=== PATIENT | female | born 1965 | race Caucasian/White ===

== ENCOUNTER 2021-09-12 17:29 | Inpatient (IN) | payer MEDICARE, OTHER ==
[2021-09-12] MEDS ORDERED: LORazepam 2 MG/ML INJ IV STA ×2 (17:42→22:32)
--- NOTE | 2021-09-12 17:42 | ED ---
General Adult HPI - General Chief complaint: Altered Mental Status Stated complaint: altered Time Seen by Provider: 09/12/21 17:34 Source: family, EMS Mode of arrival: EMS Limitations: no limitations - History of Present Illness Initial comments: Brittnee is a 55yo F his breath the hospital today by ambulance for evaluation of altered mental status. Patient is able to provide no history and limited history is provided by her . reports the patient has a history of MS and is on a blood thinner though he cannot tell me why. He states the patient's been somewhat off all week having trouble sleeping, he states that her doctor did call her in some medication to help her sleep which she has been taking for couple nights this week. reports that the patient did take sleeping medication last night and when he got up to leave the house around 8 AM she was still drowsy. When he returned in the afternoon the patient was altered . She was mumbling and moving her extremities but not saying anything meaningful. At that time EMS was called. - Related Data Home Medications Medication Instructions Recorded Confirmed Cyclobenzaprine [Flexeril] 10 mg PO HS PRN 09/12/21 09/12/21 DULoxetine HCL [Cymbalta] 60 mg PO BID 09/12/21 09/12/21 Dextroamphetamine/Amphetamine 10 mg PO DIRECTED 09/12/21 09/12/21 [Adderall] Dextroamphetamine/Amphetamine 30 mg PO DIRECTED 09/12/21 09/12/21 [Adderall] Enalapril [Vasotec] 20 mg PO DAILY 09/12/21 09/12/21 Estrogens, Conjugated Cream 1 applicator VAGINAL DIRECTED 09/12/21 09/12/21 [Premarin Vaginal Cream] PRN Glatopa 40mg/Ml 1 dose SQ DIRECTED 09/12/21 09/12/21 LORazepam [Ativan] 0.5 mg PO TID 09/12/21 09/12/21 Meloxicam 15 mg PO DAILY PRN 09/12/21 09/12/21 Nitrofurantoin Monohyd/M-Cryst 100 mg PO DAILY PRN 09/12/21 09/12/21 [Macrobid] Simvastatin [Zocor] 20 mg PO HS 09/12/21 09/12/21 Zolpidem [Ambien] 10 mg PO HS 09/12/21 09/12/21 hydroCHLOROthiazide [Hydrodiuril] 25 mg PO DAILY 09/12/21 09/12/21 metFORMIN HCL 500 mg PO AC-BID 09/12/21 09/12/21 rOPINIRole HCL [Requip] 1 mg PO HS 09/12/21 09/12/21 Allergies Allergy/AdvReac Type Severity Reaction Status Date / Time No Known Allergies Allergy Verified 09/12/21 18:08 Review of Systems ROS Statement: Those systems with pertinent positive or pertinent negative responses have been documented in the HPI. ROS Other: All systems not noted in ROS Statement are negative. Past Medical History Additional Past Medical History / Comment(s): MS History of Any Multi-Drug Resistant Organisms: None Reported Past Surgical History: No Surgical Hx Reported Past Psychological History: No Psychological Hx Reported Smoking Status: Never smoker Past Alcohol Use History: None Reported Past Drug Use History: None Reported General Exam - General Exam Comments Initial Comments: Physical Exam GENERAL: Patient is well-developed and well-nourished. Patient is nontoxic and well- hydrated and is in no distress. HENT: Normocephalic, Atraumatic. EYES: PERRL EOMI PULMONARY: Unlabored respirations. No audible rales rhonchi or wheezing was noted. CARDIOVASCULAR: There is a regular rate and rhythm without any murmurs gallops or rubs. ABDOMEN: Soft and nontender with normal bowel sounds. SKIN: Skin is clear with no lesions or rashes and otherwise unremarkable. : Normal external genitalia NEUROLOGIC: Moving all extremities Eyes open to pain Mumbling random words Withdraws from pain, resists evaluation GCS 9 Muscular tics noted MUSCULOSKELETAL: Normal extremities with adequate strength and full range of motion. No lower extremity swelling or edema. No calf tenderness. PSYCHIATRIC: Unable to assess Limitations: no limitations Course Vital Signs 09/12/21 09/12/21 09/12/21 17:36 17:47 19:34 Temperature 98.4 F Pulse Rate 110 H 76 Respiratory 18 22 Rate Blood Pressure 144/126 110/78 O2 Sat by Pulse 94 L 98 Oximetry 09/12/21 09/12/21 09/12/21 19:36 19:40 19:43 Temperature Pulse Rate 78 89 70 Respiratory 20 14 12 Rate Blood Pressure 107/68 91/77 91/77 O2 Sat by Pulse 100 98 68 L Oximetry 0109/12/21 09/12/21 19:45 19:50 19:55 Temperature Pulse Rate 91 90 88 Respiratory 15 19 19 Rate Blood Pressure 90/56 86/48 80/46 O2 Sat by Pulse 97 99 100 Oximetry 09/12/21 09/12/21 09/12/21 20:00 20:05 20:10 Temperature Pulse Rate 81 90 88 Respiratory 19 19 19 Rate Blood Pressure 92/38 79/40 72/42 O2 Sat by Pulse 99 100 100 Oximetry 09/12/21 09/12/21 09/12/21 20:15 21:00 21:46 Temperature Pulse Rate 88 101 H 99 Respiratory 19 22 22 Rate Blood Pressure 75/40 109/55 145/72 O2 Sat by Pulse 100 97 99 Oximetry 09/12/21 22:35 Temperature Pulse Rate 96 Respiratory Rate Blood Pressure 111/52 O2 Sat by Pulse 96 Oximetry Procedures - Procedural Sedation Procedural Sedation Start Time: 19:20 Procedural Sedation Stop Time: 19:55 Indications: other ASA Class: II Mallampati Airway Score: 2 Preparation: medical charge entry specialist applied, pulse oximeter, capnometry used, supplemental O2 applied, suction/airway equipment at bedside IV Propofol Dose (mgs): 200 Complications: hypotension Interventions: oxygen applied, airway repositioned, assist by BVM Patient Tolerated Procedure: well Medical Decision Making - Medical Decision Making Patient was seen and evaluated immediately upon arrival emergency department, the patient is awake GCS is 9, she is very altered and resistant to examination Labs were obtained results with critical finding of acute kidney failure with elevated BUN of 99, creatinine 10.6, GFR is [address] without acute findings Nephrology was consult and they agree the patient requires emergent dialysis for uremic encephalopathy Dr. Duong vascular surgical team was consult it and will be into place dialysis access The patient's level of encephalopathy and inability to participate with the exam decision was made to provide procedural sedation with propofol for Dr. Duong to place the line Line was placed, patient did have some hypotension and hypoxia, she did require airway support during the procedure Patient care was discussed with Dr. Weems accepts the patient to the ICU Patient care was discussed with who accepts the medical admission - Lab Data Result diagrams: 09/12/21 18:04 09/12/21 18:04 Lab Results 01/27/22 01/27/22 01/27/22 Range/Units 18:04 18:04 18:04 WBC 12.3 H (3.8-10.6) k/uL RBC 4.16 (3.80-5.40) m/uL Hgb 12.4 (11.4-16.0) gm/dL Hct 37.7 (34.0-46.0) % MCV 90.7 (80.0-100.0) fL MCH 29.9 (25.0-35.0) pg MCHC 33.0 (31.0-37.0) g/dL RDW 14.2 (11.5-15.5) % Plt Count 434 (150-450) k/uL MPV 8.0 Neutrophils % Not Reportable Neutrophils % (Manual) 74 % Band Neuts % (Manual) 16 % Lymphocytes % Not Reportable Lymphocytes % (Manual) 4 % Monocytes % Not Reportable Monocytes % (Manual) 6 % Eosinophils % Not Reportable Basophils % Not Reportable Neutrophils # Not Reportable Neutrophils # (Manual) 11.00 H (1.3-7.7) k/uL Lymphocytes # Not Reportable Lymphocytes # (Manual) 0.49 L (1.0-4.8) k/uL Monocytes # Not Reportable Monocytes # (Manual) 0.74 (0-1.0) k/uL Eosinophils # Not Reportable Basophils # Not Reportable Nucleated RBCs 0 (0-0) /100 WBC Manual Slide Review Performed Polychromasia Present PT 9.9 (9.0-12.0) sec INR 0.9 (<1.2) APTT 23.7 (22.0-30.0) sec Sodium (137-145) mmol/L Potassium (3.5-5.1) mmol/L Chloride (98-107) mmol/L Carbon Dioxide (22-30) mmol/L Anion Gap mmol/L BUN (7-17) mg/dL Creatinine (0.52-1.04) mg/dL Est GFR (CKD-EPI)AfAm (>60 ml/min/1.73 sqM) Est GFR (CKD-EPI)NonAf (>60 ml/min/1.73 sqM) Glucose (74-99) mg/dL Plasma Lactic Acid Nasir (0.7-2.0) mmol/L Calcium (8.4-10.2) mg/dL Magnesium (1.6-2.3) mg/dL Total Bilirubin (0.2-1.3) mg/dL AST (14-36) U/L ALT (4-34) U/L Alkaline Phosphatase (38-126) U/L Total Protein (6.3-8.2) g/dL Albumin (3.5-5.0) g/dL Urine Color Yellow Urine Appearance Turbid H (Clear) Urine pH 5.0 (5.0-8.0) Ur Specific [place] 1.025 (1.001-1.035) Urine Protein 2+ H (Negative) Urine Glucose (UA) Trace H (Negative) Urine Ketones Negative (Negative) Urine Blood Small H (Negative) Urine Nitrite Negative (Negative) Urine Bilirubin Negative (Negative) Urine Urobilinogen <2.0 (<2.0) mg/dL Ur Leukocyte Esterase Small H (Negative) Urine RBC 1 (0-5) /hpf Urine WBC 6 H (0-5) /hpf Ur Squamous Epith Cells 29 H (0-4) /hpf Urine Bacteria Moderate H (None) /hpf Urine Mucus Rare H (None) /hpf 09/12/21 09/12/21 Range/Units 18:04 18:04 WBC (3.8-10.6) k/uL RBC (3.80-5.40) m/uL Hgb (11.4-16.0) gm/dL Hct (34.0-46.0) % MCV (80.0-100.0) fL MCH (25.0-35.0) pg MCHC (31.0-37.0) g/dL RDW (11.5-15.5) % Plt Count (150-450) k/uL MPV Neutrophils % Neutrophils % (Manual) % Band Neuts % (Manual) % Lymphocytes % Lymphocytes % (Manual) % Monocytes % Monocytes % (Manual) % Eosinophils % Basophils % Neutrophils # Neutrophils # (Manual) (1.3-7.7) k/uL Lymphocytes # Lymphocytes # (Manual) (1.0-4.8) k/uL Monocytes # Monocytes # (Manual) (0-1.0) k/uL Eosinophils # Basophils # Nucleated RBCs (0-0) /100 WBC Manual Slide Review Polychromasia PT (9.0-12.0) sec INR (<1.2) APTT (22.0-30.0) sec Sodium 135 L (137-145) mmol/L Potassium 4.6 (3.5-5.1) mmol/L Chloride 95 L (98-107) mmol/L Carbon Dioxide 9 L* (22-30) mmol/L Anion Gap 31 mmol/L BUN 99 H (7-17) mg/dL Creatinine 10.69 H* (0.52-1.04) mg/dL Est GFR (CKD-EPI)AfAm 4 (>60 ml/min/1.73 sqM) Est GFR (CKD-EPI)NonAf 4 (>60 ml/min/1.73 sqM) Glucose 140 H (74-99) mg/dL Plasma Lactic Acid Nasir 1.8 (0.7-2.0) mmol/L Calcium 9.0 (8.4-10.2) mg/dL Magnesium 2.9 H (1.6-2.3) mg/dL Total Bilirubin 0.6 (0.2-1.3) mg/dL AST 279 H (14-36) U/L ALT 144 H (4-34) U/L Alkaline Phosphatase 106 (38-126) U/L Total Protein 7.2 (6.3-8.2) g/dL Albumin 4.4 (3.5-5.0) g/dL Urine Color Urine Appearance (Clear) Urine pH (5.0-8.0) Ur Specific [place] (1.001-1.035) Urine Protein (Negative) Urine Glucose (UA) (Negative) Urine Ketones (Negative) Urine Blood (Negative) Urine Nitrite (Negative) Urine Bilirubin (Negative) Urine Urobilinogen (<2.0) mg/dL Ur Leukocyte Esterase (Negative) Urine RBC (0-5) /hpf Urine WBC (0-5) /hpf Ur Squamous Epith Cells (0-4) /hpf Urine Bacteria (None) /hpf Urine Mucus (None) /hpf Critical Care Time Critical Care Time: Yes Total Critical Care Time: 45 Disposition Clinical Impression: Uremic encephalopathy, Acute kidney failure, COVID-19, Altered mental status, Hypermagnesemia, Transaminitis Disposition: ADMITTED IP TO THIS [facility] Condition: Critical
[2021-09-12] MEDS: SODIUM CHLORIDE 0.9% 1,000 ML IV SCH (18:05)
[2021-09-12 18:16] LABS: Appearance,Urine Turbid (Clear); Bacteria,Urine Moderate /hpf; Bilirubin,Urine Negative (Negative); Blood,Urine Small (Negative); Color,Urine Yellow; Glucose,Urine (UA) Trace (Negative); Ketones,Urine Negative (Negative); Leukocyte Esterase,Urine Small (Negative); Mucus,Urine Rare /hpf; Nitrite,Urine Negative (Negative); Protein,Urine 2+ (Negative); RBC,Urine 1 /hpf (0-5); Squamous Epithelial Cell,Urine 29 /hpf (0-4); Urobilinogen,Urine <2.0 mg/dL (<2.0); WBC,Urine 6 /hpf (0-5)
[2021-09-12 18:21] LABS: INR 0.9 (<1.2); Partial Thromboplastin Time 23.7 sec (22.0-30.0); Prothrombin Time 9.9 sec (9.0-12.0)
[2021-09-12 18:22] LABS: Albumin 4.4 g/dL (3.5-5.0); Magnesium 2.9 mg/dL (1.6-2.3); Potassium 4.6 mmol/L (3.5-5.1); Total Bilirubin 0.6 mg/dL (0.2-1.3); Total Protein 7.2 g/dL (6.3-8.2)
[2021-09-12 18:32] LABS: HCT 37.7 % (34.0-46.0); HGB 12.4 gm/dL (11.4-16.0); MCH 29.9 pg (25.0-35.0); MCV 90.7 fL (80.0-100.0); Platelet Count 434 k/uL (150-450); RBC 4.16 m/uL (3.80-5.40); RDW 14.2 % (11.5-15.5); WBC 12.3 k/uL (3.8-10.6)
[2021-09-12 18:39] LABS: Specific Gravity,Urine 1.025 (1.001-1.035)
[2021-09-12] MEDS ORDERED: SODIUM CHLORIDE 0.9% 1,000 ML IV ONE (18:45)
[2021-09-12 18:53] LABS: Band Neutrophils % 16 %; Lymphocytes # (M) 0.49 k/uL (1.0-4.8); Monocytes # (M) 0.74 k/uL (0-1.0); Neutrophils % (M) 74 %; Nucleated Red Blood Cells 0 /100 WBC (0-0); Polychromasia Present; Total Cells Counted 100
[2021-09-12] MEDS ORDERED: LIDOCAINE 1% INJ 10MG/ML (20 ML MDV) SQ ONE (19:01)
--- NOTE | 2021-09-12 19:02 | CT ---
EXAMINATION: CT brain wo con DATE AND TIME: 09/12/2021 6:23 PM CLINICAL INDICATION: altered mental status TECHNIQUE: Standard departmental protocol.; 1173.4 mGy-cm COMPARISON: None. FINDINGS: There is patient motion artifact which obscures detail and limits sensitivity of this examination. The calvarium is intact as seen. There is no intracranial hemorrhage. There is no intracranial mass or mass effect. No definite new intra-axial or extra-axial attenuation defect. The paranasal sinuses, middle ear cavities, and mastoid sinus air cells are clear. The orbits are unremarkable. IMPRESSION: NO ACUTE PROCESS.
[2021-09-12] MEDS ORDERED: PROPOFOL 10 MG/ML 20 ML VIAL IV STA (19:14)
[2021-09-12] MEDS ORDERED: NALOXONE 0.4 MG/ML 1 ML VIAL IV PRN (20:37)
[2021-09-12] MEDS ORDERED: HEPARIN SODIUM 1,000 UN/ML (10ML VL) IVP STA (21:13)
[2021-09-12] MEDS ORDERED: fentaNYL (PF) 50 MCG/ML 2 ML AMP IVP STA (21:14)
--- NOTE | 2021-09-12 21:18 | OP ---
OPERATIVE REPORT PREOPERATIVE DIAGNOSIS: Acute on chronic renal failure. POSTOPERATIVE DIAGNOSIS: Acute on chronic renal failure. PROCEDURE PERFORMED: Ultrasound-guided dialysis catheter placement, right femoral approach. PROCEDURE DESCRIPTION: This patient was seen in the intensive care unit. Right groin was prepped and draped in the usual sterile manner. 1% lidocaine was infiltrated. Then ultrasound-guided micropuncture was introduced into the right femoral vein. Micropuncture guidewire was passed and 4-Slovak dilator was advanced on top of the guidewire. Then we passed a regular guidewire and then advanced the dilator and sheath. Then we placed dialysis catheter on the top of the guidewire, flushed with heparin saline, and the catheter and secured with 3-0 nylon. Dressing was applied. Patient tolerated the procedure well. LEOL / IJN: [id number] /
[2021-09-12] MEDS: DEXTROSE 5% IN WATER 1,000 ML with SODIUM BICARB (1 MEQ/ML) 150 ML IV SCH (21:44)
[2021-09-12] MEDS ORDERED: LORazepam 1 MG TAB PO STA (22:20)
--- NOTE | 2021-09-12 23:14 | CT ---
EXAMINATION TYPE: CT ChestAbdPelvis w con DATE OF EXAM: 09/12/2021 COMPARISON: None HISTORY: ams. CT DLP: 2153.7 mGycm Automated exposure control for dose reduction was used. CONTRAST: Performed with IV Contrast, patient injected with 100 mL of Isovue 300. Images obtained from the thoracic inlet to the floor of the pelvis with IV contrast. There are Three- D postprocessed images. FINDINGS: The lungs are clear of consolidation. There is mild subsegmental atelectasis in the posterior lung fi elds. Heart size is normal. There is no pericardial effusion. There are no hilar masses. There is no mediastinal adenopathy. Thoracic aorta is intact. There is no sign of aneurysm or dissection. Liver spleen and stomach pancreas gallbladder appear intact. Bile duct are nondilated. Exam limited s lightly by motion. There is no adrenal mass. Kidneys show satisfactory contrast opacification. There is no hydronephrosis. Delayed images show very little renal excretion. There is no retroperitoneal ad enopathy. Appendix is posterior and appears normal. There is a Zimmerman catheter in the urinary bladder. Bladder is empty. There is no inguinal hernia. There is no evidence of a pelvic mass. There is no mesenteric edema. The re is no ascites or free air. There is no bowel obstruction. The lumbar vertebrae have normal alignme nt. There is no compression fracture. There is mild narrowing at L5-S1 disc space. The bony pelvis is intact. The hip joints are intact. Sternum appears intact. IMPRESSION: Normal appendix. No acute abnormality in the abdomen pelvis. No excretion seen in the kidneys consist ent with renal failure.
[2021-09-12 23:35] LABS: Glucose,Whole Blood 136 mg/dL (75-99)
[2021-09-13] MEDS: NOREPINEPHRINE 4 MG in SODIUM CHLORIDE 0.9% 250 ML IV SCH ×2 (00:26→15:41)
--- NOTE | 2021-09-13 00:52 | P.HPIM ---
History of Present Illness H&P Date: 09/12/21 The patient is a 55-year-old female with a PMH of hypertension, hyperlipidemia, type II DM, and multiple sclerosis and history of multiple UTIs was brought to the emergency room due to altered mental status. History was obtained from the via phone as the patient was on answering any questions. The reports that over the past 1 week, the patient has been somewhat more fatigued than usual, and had complained of back pain. She reportedly had difficulty falling asleep for which her PMD had written some medications to help her sleep which she had been using over the past few weeks. The states that he left her this morning and when he returned home, he found her to be very confused, at which time he activated EMS. He states that the patient has been eating and drinking as per normal over the past 1 week. He reported no complaints of fever, headaches, or urinary complaints. At the time of interview, the patient was mumbling incoherently and was not following any directions or answering any questions. CT brain in the emergency room was unremarkable with CT chest abdomen and pelvis unremarkable. Laboratory evaluation revealed a BUN of 99, creatinine 10.69, CO2 9, creatine kinase 4846, and UA grossly abnormal with COVID positive. Review of systems: Unable to perform due to mental status Physical examination: General: Somewhat ill-appearing female, mumbling incoherently, appears at stated age, morbidly obese Derm: no unusual rashes/lesions no unusual ecchymoses, warm, dry Head: atraumatic, normocephalic, symmetric Eyes: No lid lag, anicteric sclera, pupils equal round reactive to light ENT: Nose and ears atraumatic Neck: No thyromegaly, no cervical lymphadenopathy, trachea midline, supple Mouth: no lip lesion, mucus membranes somewhat dry Cardiovascular: S1S2 reg, no murmur, positive posterior tibial pulse bilateral, no edema, capillary refill less than 2 seconds Lungs: CTA bilateral, no rhonchi, no rales , no accessory muscle use Abdominal: soft, nontender to palpation, no guarding, no appreciable organomegaly, normal bowel sounds Ext: Moving all extremities, no gross muscle atrophy, no contractures, Neuro: Unable to assess Assessment/plan Acute renal failure, with rhabdomyolysis -Continue with IV fluids -Nephrology consult -Obtain myeloma workup since reports that the patient has been drinking ample amounts of water daily -Monitor BMP -Patient scheduled for emergent hemodialysis to be performed tonight -Admitted to the medical ICU Altered mental status, suspected uremic encephalopathy -Continue with above management Chronic conditions: Type 2 DM, hypertension, hyperlipidemia, multiple sclerosis -Insulin sliding scale and blood glucose monitoring -Hold lisinopril and hctz -Check A1c Metabolic acidosis, suspected secondary to uremia -C/w sodium bicarbonate infusion DVT prophylaxis -Heparin subcu The patient is admitted with an anticipated greater than 2 midnight stay for evaluation of ATF CODE STATUS:Full Code Discussed with: Anticipated discharge date: 4-[address]: Home Past Medical History Additional Past Medical History / Comment(s): MS History of Any Multi-Drug Resistant Organisms: None Reported Past Surgical History: No Surgical Hx Reported Past Psychological History: No Psychological Hx Reported Smoking Status: Never smoker Past Alcohol Use History: None Reported Past Drug Use History: None Reported - Past Family History Father Family Medical History: Unable to Obtain (Due to patient's altered mental status) Medications and Allergies Home Medications Medication Instructions Recorded Confirmed Type Cyclobenzaprine [Flexeril] 10 mg PO HS PRN 09/12/21 09/12/21 History DULoxetine HCL [Cymbalta] 60 mg PO BID 09/12/21 09/12/21 History Dextroamphetamine/Amphetamine 10 mg PO DIRECTED 09/12/21 09/12/21 History [Adderall] Dextroamphetamine/Amphetamine 30 mg PO DIRECTED 09/12/21 09/12/21 History [Adderall] Enalapril [Vasotec] 20 mg PO DAILY 09/12/21 09/12/21 History Estrogens, Conjugated Cream 1 applicator VAGINAL DIRECTED 09/12/21 09/12/21 History [Premarin Vaginal Cream] PRN Glatopa 40mg/Ml 1 dose SQ DIRECTED 09/12/21 09/12/21 History LORazepam [Ativan] 0.5 mg PO TID 09/12/21 09/12/21 History Meloxicam 15 mg PO DAILY PRN 09/12/21 09/12/21 History Nitrofurantoin Monohyd/M-Cryst 100 mg PO DAILY PRN 09/12/21 09/12/21 History [Macrobid] Simvastatin [Zocor] 20 mg PO HS 09/12/21 09/12/21 History Zolpidem [Ambien] 10 mg PO HS 09/12/21 09/12/21 History hydroCHLOROthiazide [Hydrodiuril] 25 mg PO DAILY 09/12/21 09/12/21 History metFORMIN HCL 500 mg PO AC-BID 09/12/21 09/12/21 History rOPINIRole HCL [Requip] 1 mg PO HS 09/12/21 09/12/21 History Allergies Allergy/AdvReac Type Severity Reaction Status Date / Time No Known Allergies Allergy Verified 09/12/21 18:08 Physical Exam Vitals: Vital Signs Temp Pulse Resp BP Pulse Ox 09/12/21 23:38 97 09/12/21 22:35 96 111/52 96 09/12/21 21:46 99 22 145/72 99 09/12/21 21:00 101 H 22 109/55 97 09/12/21 20:45 96 19 84/64 100 09/12/21 20:30 96 20 95/57 100 09/12/21 20:25 96 19 87/43 100 09/12/21 20:20 99 19 98/56 98 09/12/21 20:15 88 19 75/40 100 09/12/21 20:10 88 19 72/42 100 09/12/21 20:05 90 19 79/40 100 09/12/21 20:00 81 19 92/38 99 09/12/21 19:55 88 19 80/46 100 09/12/21 19:50 90 19 86/48 99 09/12/21 19:45 91 15 90/56 97 09/12/21 19:43 70 12 91/77 68 L 09/12/21 19:40 89 14 91/77 98 09/12/21 19:36 78 20 107/68 100 09/12/21 19:34 76 22 110/78 98 09/12/21 17:47 144/126 09/12/21 17:36 98.4 F 110 H 18 94 L Intake and Output 09/12/21 09/12/21 09/13/21 14:59 22:59 06:59 Output Total 0 Balance 0 Output: Hemodialysis 0 Other: Weight 108.862 kg Results CBC & Chem 7: 09/12/21 18:04 09/12/21 18:04 Labs: Abnormal Lab Results - Last 24 Hours (Table) 09/12/21 09/12/21 09/12/21 Range/Units 18:04 18:04 18:04 WBC 12.3 H (3.8-10.6) k/uL Neutrophils # (Manual) 11.00 H (1.3-7.7) k/uL Lymphocytes # (Manual) 0.49 L (1.0-4.8) k/uL Sodium 135 L (137-145) mmol/L Chloride 95 L (98-107) mmol/L Carbon Dioxide 9 L* (22-30) mmol/L BUN 99 H (7-17) mg/dL Creatinine 10.69 H* (0.52-1.04) mg/dL Glucose 140 H (74-99) mg/dL POC Glucose (mg/dL) (75-99) mg/dL Magnesium 2.9 H (1.6-2.3) mg/dL AST 279 H (14-36) U/L ALT 144 H (4-34) U/L Urine Appearance Turbid H (Clear) Urine Protein 2+ H (Negative) Urine Glucose (UA) Trace H (Negative) Urine Blood Small H (Negative) Ur Leukocyte Esterase Small H (Negative) Urine WBC 6 H (0-5) /hpf Ur Squamous Epith Cells 29 H (0-4) /hpf Urine Bacteria Moderate H (None) /hpf Urine Mucus Rare H (None) /hpf Coronavirus (PCR) (Not Detectd) 09/12/21 09/12/21 Range/Units 21:04 23:33 WBC (3.8-10.6) k/uL Neutrophils # (Manual) (1.3-7.7) k/uL Lymphocytes # (Manual) (1.0-4.8) k/uL Sodium (137-145) mmol/L Chloride (98-107) mmol/L Carbon Dioxide (22-30) mmol/L BUN (7-17) mg/dL Creatinine (0.52-1.04) mg/dL Glucose (74-99) mg/dL POC Glucose (mg/dL) 136 H (75-99) mg/dL Magnesium (1.6-2.3) mg/dL AST (14-36) U/L ALT (4-34) U/L Urine Appearance (Clear) Urine Protein (Negative) Urine Glucose (UA) (Negative) Urine Blood (Negative) Ur Leukocyte Esterase (Negative) Urine WBC (0-5) /hpf Ur Squamous Epith Cells (0-4) /hpf Urine Bacteria (None) /hpf Urine Mucus (None) /hpf Coronavirus (PCR) Detected A (Not Detectd)
[2021-09-13] MEDS ORDERED: LORazepam 2 MG/ML INJ IV STA (05:12)
[2021-09-13] MEDS: SODIUM CHLORIDE 0.9% 1,000 ML IV SCH (05:20)
[2021-09-13] MEDS: DEXTROSE 5% IN WATER 1,000 ML with SODIUM BICARB (1 MEQ/ML) 150 ML IV SCH ×3 (05:50→23:53)
[2021-09-13] MEDS: INSULIN ASPART (NovoLOG) 100 UNIT/ML VIAL SQ SCH ×4 (05:57→21:13)
[2021-09-13 06:06] LABS: Glucose,Whole Blood 154 mg/dL (75-99)
[2021-09-13 06:33] LABS: HCT 32.3 % (34.0-46.0); HGB 10.5 gm/dL (11.4-16.0); MCH 29.3 pg (25.0-35.0); MCHC 32.5 g/dL (31.0-37.0); Mean Platelet Volume 7.7; Platelet Count 267 k/uL (150-450); RBC 3.59 m/uL (3.80-5.40); RDW 13.8 % (11.5-15.5)
[2021-09-13 06:48] LABS: Calcium 8.1 mg/dL (8.4-10.2); Magnesium 2.5 mg/dL (1.6-2.3); Phosphorus 7.2 mg/dL (2.5-4.5); Potassium 3.3 mmol/L (3.5-5.1); Total Bilirubin 0.6 mg/dL (0.2-1.3); Total Protein 5.5 g/dL (6.3-8.2)
[2021-09-13] MEDS ORDERED: Potassium Replacement Protocol 1 EACH MISC MISCELLANE PRN (07:20)
[2021-09-13] MEDS ORDERED: HEPARIN SODIUM,PORCINE/PF 5,000 UNIT/0.5 ML SYRINGE SQ SCH (08:00)
[2021-09-13 08:04] LABS: Band Neutrophils % 7 %; Metamyelocytes # (M) 0.12 k/uL (0); Metamyelocytes % 2 %; Monocytes # (M) 0.48 k/uL (0-1.0); Myelocytes # (M) 0.12 k/uL (0); Myelocytes % 2 %; Neutrophils % (M) 68 %; Nucleated Red Blood Cells 0 /100 WBC (0-0); Total Cells Counted 200
[2021-09-13 08:05] LABS: Anisocytosis (M) Present
[2021-09-13] MEDS: POTASSIUM CHLORIDE 10 MEQ in WATER FOR INJECTION 1 100ML.BAG IVPB SCH ×2 (08:48→10:03)
[2021-09-13] MEDS: DEXAMETHASONE SOD PHOSPHATE 10 MG/ML 1 ML VIAL IVP SCH (09:03)
[2021-09-13] MEDS: PANTOPRAZOLE 40 MG/10 ML VIAL IVP SCH (09:03)
[2021-09-13] MEDS: ENOXAPARIN 30 MG/0.3 ML SYRINGE SQ SCH (10:04)
[2021-09-13 10:05] LABS: Hepatitis B Surface AB- Quant 3.5 mIU/mL; Hepatitis B Surface Antibody Nonreactive (Nonreactive)
[2021-09-13 10:06] LABS: Hepatitis B Surface Antigen Nonreactive (Nonreactive)
--- NOTE | 2021-09-13 11:01 | P.CNPUL ---
History of Present Illness Consult date: 09/13/21 Requesting physician: Rad Strong Reason for consult: other (Critical care management) Chief complaint: Altered mental status History of present illness: This is a 55-year-old female patient with a known history of multiple sclerosis, hypertension, hyperlipidemia, diabetes mellitus, frequent urinary tract infections and has Macrobid to be used as needed. She was brought into the emergency room yesterday with a history of initially insomnia was placed on medication by her PCP. She was having issues with ongoing drowsiness the next morning and she had developed altered mental status. She was mumbling and moving her extremities but not seen anything meaningful according to her 's report from the emergency room. Computed tomography scan of the brain revealed no acute process. Computed tomography scan of the chest abdomen and pelvis revealed clear lungs. No significant abnormalities of the abdomen and pelvis. No excretion seen in the kidneys consistent with renal failure. She was found to be in acute renal failure with a presenting BUN of 99 and a creatinine of 10.6. Creatinine kinase 4046. Urinalysis positive for bacteria and blood. Positive coronavirus by PCR. Hepatitis screen nonreactive. LDH 1350. AST 223. ALT 125. White count 6.0. Hemoglobin 10.5. Leukocyte 0.9. An urgent right femoral temporary dialysis catheter was placed yesterday. She did receive hemodialysis and is planning for repeat dialysis again today. Nephrology is on the case. She had been awake but restless throughout the night. She received Ativan. She is seen in consultation today in the ICU. She is moaning. Moving all fours extremities. Not following commands. No purposeful movements. Her BUN is 71 with a creatinine of 5.26 today. She is on heparin for DVT prophylax is. D5W with 3 A of bicarbonate 100 mL per hour. She is maintaining O2 saturations in the 90s on 3 L/m per nasal cannula. She did require a small amount of norepinephrine during dialysis. Currently off. Review of Systems ROS unobtainable: due to mental status Past Medical History Additional Past Medical History / Comment(s): MS History of Any Multi-Drug Resistant Organisms: None Reported Past Surgical History: No Surgical Hx Reported Past Psychological History: No Psychological Hx Reported Smoking Status: Never smoker Past Alcohol Use History: None Reported Past Drug Use History: None Reported - Past Family History Father Family Medical History: Unable to Obtain (Due to patient's altered mental status ) Medications and Allergies Home Medications Medication Instructions Recorded Confirmed Type Cyclobenzaprine [Flexeril] 10 mg PO HS PRN 09/12/21 09/12/21 History DULoxetine HCL [Cymbalta] 60 mg PO BID 09/12/21 09/12/21 History Dextroamphetamine/Amphetamine 10 mg PO DIRECTED 09/12/21 09/12/21 History [Adderall] Dextroamphetamine/Amphetamine 30 mg PO DIRECTED 09/12/21 09/12/21 History [Adderall] Enalapril [Vasotec] 20 mg PO DAILY 09/12/21 09/12/21 History Estrogens, Conjugated Cream 1 applicator VAGINAL DIRECTED 09/12/21 09/12/21 History [Premarin Vaginal Cream] PRN LORazepam [Ativan] 0.5 mg PO TID 09/12/21 09/12/21 History Meloxicam 15 mg PO DAILY PRN 09/12/21 09/12/21 History Nitrofurantoin Monohyd/M-Cryst 100 mg PO DAILY PRN 09/12/21 09/12/21 History [Macrobid] Simvastatin [Zocor] 20 mg PO HS 09/12/21 09/12/21 History Zolpidem [Ambien] 10 mg PO HS 09/12/21 09/12/21 History hydroCHLOROthiazide [Hydrodiuril] 25 mg PO DAILY 09/12/21 09/12/21 History metFORMIN HCL 500 mg PO AC-BID 09/12/21 09/12/21 History rOPINIRole HCL [Requip] 1 mg PO HS 09/12/21 09/12/21 History Glatiramer Acetate [Copaxone] 40 mg SQ MOWEFR 09/13/21 09/13/21 History Allergies Allergy/AdvReac Type Severity Reaction Status Date / Time No Known Allergies Allergy Verified 09/12/21 18:08 Physical Exam Vitals: Vital Signs Temp Pulse Resp BP Pulse Ox 09/13/21 10:00 98 14 112/77 94 L 09/13/21 09:30 91 22 113/82 94 L 09/13/21 09:00 89 21 112/55 95 09/13/21 08:30 87 15 108/54 95 09/13/21 08:00 99.8 F H 88 17 97/56 95 09/13/21 07:30 85 13 101/51 96 09/13/21 07:00 84 13 85/52 95 09/13/21 06:30 90 18 90/48 96 09/13/21 06:00 93 15 99/46 96 09/13/21 05:30 95 16 122/71 95 09/13/21 05:00 102 H 20 132/85 95 09/13/21 04:30 101 H 20 109/87 96 09/13/21 04:00 98.3 F 94 22 94/56 97 09/13/21 03:30 81 15 90/56 98 09/13/21 03:00 85 13 103/55 98 09/13/21 02:50 84 14 103/55 97 09/13/21 02:40 85 17 101/54 97 09/13/21 02:30 83 15 108/59 97 09/13/21 02:20 82 16 108/59 97 09/13/21 02:10 83 15 114/76 97 09/13/21 02:00 77 15 118/63 98 09/13/21 01:50 78 17 102/63 98 09/13/21 01:40 77 16 105/57 98 09/13/21 01:30 77 16 95/68 97 09/13/21 01:20 77 16 97/56 97 09/13/21 01:10 78 16 97/51 97 09/13/21 01:00 76 17 88/51 97 09/13/21 00:50 76 13 80/45 96 09/13/21 00:40 80 17 86/46 97 09/13/21 00:30 84 18 73/43 97 09/13/21 00:20 85 17 72/42 97 09/13/21 00:15 87 16 76/38 97 09/13/21 00:10 84 18 77/43 97 09/13/21 00:00 87 16 83/47 97 09/12/21 23:50 97 25 H 106/77 94 L 09/12/21 23:40 25 H 106/77 97 09/12/21 23:39 106/77 97 09/12/21 23:38 97 09/12/21 23:15 91 19 95/56 97 09/12/21 23:00 64 24 111/52 97 09/12/21 22:35 96 111/52 96 09/12/21 22:30 71 19 95/57 94 L 09/12/21 22:15 67 20 99/49 97 09/12/21 22:00 65 20 102/63 96 09/12/21 21:46 99 22 145/72 99 09/12/21 21:45 78 18 145/72 97 09/12/21 21:30 70 18 106/62 95 09/12/21 21:15 87 19 128/68 95 09/12/21 21:00 88 19 109/55 97 09/12/21 20:45 96 19 84/64 100 09/12/21 20:30 96 20 95/57 100 09/12/21 20:25 96 19 87/43 100 09/12/21 20:20 99 19 98/56 98 09/12/21 20:15 88 19 75/40 100 09/12/21 20:10 88 19 72/42 100 09/12/21 20:05 90 19 79/40 100 09/12/21 20:00 81 19 92/38 99 09/12/21 19:55 88 19 80/46 68 L 09/12/21 19:50 90 19 86/48 99 09/12/21 19:45 91 15 90/56 97 09/12/21 19:43 70 12 91/77 68 L 09/12/21 19:40 89 14 91/77 98 09/12/21 19:36 78 20 107/68 100 09/12/21 19:34 76 22 110/78 98 09/12/21 17:47 144/126 09/12/21 17:36 98.4 F 110 H 18 94 L Intake and Output 09/12/21 09/13/21 09/13/21 22:59 06:59 14:59 Intake Total 742.513 650 Output Total 530 375 Balance 212.513 275 Intake: Intake, IV Titration 742.513 650 Amount Dextrose 5% in Water 1, 700 400 000 ml @ 100 mls/hr IV . [id number] PEDRO with Sodium Bicarb (1 Meq/ml) 150 ml Rx#:[id number] Norepinephrine 4 mg In 42.513 Sodium Chloride 0.9% 250 ml @ 0.05 MCG/KG/MIN 20. 738 mls/hr IV .[id number] PEDRO Rx#:[id number] Potassium Chloride 10 meq 200 In Water For Injection 1 100ml.bag @ 100 mls/hr IVPB Q1H PEDRO Rx#: [id number] cefTRIAXone 1 gm In 50 Sodium Chloride 0.9% 50 ml @ 100 mls/hr IVPB Q24HR PEDRO Rx#:[id number] Output: Urine 530 375 Hemodialysis 0 Other: Voiding Method Indwelling Catheter Weight 108.862 kg 99 kg GENERAL EXAM: Arousable altered 55-year-old female patient, on 3 L nasal cannula, appears in no acute distress. HEAD: Normocephalic. EYES: Normal reaction of pupils, equal size. NOSE: Clear with pink turbinates. THROAT: No erythema or exudates. NECK: No masses, no JVD. CHEST: No chest wall deformity. LUNGS: Equal air entry with no crackles, wheeze, rhonchi or dullness. CVS: S1 and S2 normal with no audible murmur, regular rhythm. ABDOMEN: No hepatosplenomegaly, normal bowel sounds, no guarding or rigidity. SPINE: No scoliosis or deformity SKIN: No rashes CENTRAL NERVOUS SYSTEM: No focal deficits, tone is normal in all 4 extremities. EXTREMITIES: Right femoral temporary dialysis catheter in place. There is no peripheral edema. No clubbing, no cyanosis. Peripheral pulses are intact. Results - Laboratory Findings CBC and BMP: 09/13/21 06:06 09/13/21 06:06 PT/INR, D-dimer PT 9.9 sec (9.0-12.0) 09/12/21 18:04 INR 0.9 (<1.2) 09/12/21 18:04 Abnormal lab findings: Abnormal Labs 09/12/21 09/12/21 09/12/21 18:04 18:04 18:04 WBC 12.3 H RBC Hgb Hct Neutrophils # (Manual) 11.00 H Lymphocytes # (Manual) 0.49 L Metamyelocytes # (Man) Myelocytes # (Manual) Sodium 135 L Potassium Chloride 95 L Carbon Dioxide 9 L* BUN 99 H Creatinine 10.69 H* Glucose 140 H POC Glucose (mg/dL) Hemoglobin A1c Calcium Phosphorus Magnesium 2.9 H AST 279 H ALT 144 H Lactate Dehydrogenase Creatine Kinase Total Protein Albumin Urine Appearance Turbid H Urine Protein 2+ H Urine Glucose (UA) Trace H Urine Blood Small H Ur Leukocyte Esterase Small H Urine WBC 6 H Ur Squamous Epith Cells 29 H Urine Bacteria Moderate H Urine Mucus Rare H Coronavirus (PCR) 09/12/21 09/12/21 09/12/21 18:04 21:04 23:33 WBC RBC Hgb Hct Neutrophils # (Manual) Lymphocytes # (Manual) Metamyelocytes # (Man) Myelocytes # (Manual) Sodium Potassium Chloride Carbon Dioxide BUN Creatinine Glucose POC Glucose (mg/dL) 136 H Hemoglobin A1c Calcium Phosphorus Magnesium AST ALT Lactate Dehydrogenase Creatine Kinase 4846 H* Total Protein Albumin Urine Appearance Urine Protein Urine Glucose (UA) Urine Blood Ur Leukocyte Esterase Urine WBC Ur Squamous Epith Cells Urine Bacteria Urine Mucus Coronavirus (PCR) Detected A 09/13/21 09/13/21 09/13/21 01:47 05:54 06:06 WBC RBC 3.59 L Hgb 10.5 L Hct 32.3 L Neutrophils # (Manual) Lymphocytes # (Manual) 0.90 L Metamyelocytes # (Man) 0.12 H Myelocytes # (Manual) 0.12 H Sodium Potassium Chloride Carbon Dioxide BUN Creatinine Glucose POC Glucose (mg/dL) 154 H Hemoglobin A1c Calcium Phosphorus Magnesium AST ALT Lactate Dehydrogenase 1350 H Creatine Kinase Total Protein Albumin Urine Appearance Urine Protein Urine Glucose (UA) Urine Blood Ur Leukocyte Esterase Urine WBC Ur Squamous Epith Cells Urine Bacteria Urine Mucus Coronavirus (PCR) 09/13/21 09/13/21 06:06 06:06 WBC RBC Hgb Hct Neutrophils # (Manual) Lymphocytes # (Manual) Metamyelocytes # (Man) Myelocytes # (Manual) Sodium Potassium 3.3 L Chloride Carbon Dioxide 15 L BUN 71 H Creatinine 5.26 H Glucose 143 H POC Glucose (mg/dL) Hemoglobin A1c 6.9 H Calcium 8.1 L Phosphorus 7.2 H Magnesium 2.5 H AST 223 H ALT 125 H Lactate Dehydrogenase Creatine Kinase Total Protein 5.5 L Albumin 3.0 L Urine Appearance Urine Protein Urine Glucose (UA) Urine Blood Ur Leukocyte Esterase Urine WBC Ur Squamous Epith Cells Urine Bacteria Urine Mucus Coronavirus (PCR) - Diagnostic Findings CT scan - chest: image reviewed Assessment and Plan Assessment: 1 Altered mental status secondary to suspected uremic encephalopathy 2 Acute renal failure of unclear etiology requiring urgent hemodialysis 3 Urinary tract infection, cultures pending 4 CoVID 19 infection without significant pulmonary involvement at this time 5 Anion gap metabolic acidosis 6 Elevated LFTs 7 Elevated inflammatory markers 8 History of multiple sclerosis 9 History of urinary tract infections with Macrobid in the outpatient setting 10 Hypertension 11 Hyperlipidemia 12 Diabetes mellitus Plan: The patient was seen and evaluated CAT scan, labs reviewed Add ceftriaxone Add Decadron, Lovenox, Protonix Discontinue Ativan Utilize Haldol as needed Continue bicarbonate infusion Receiving hemodialysis Nephrology is on the case We will continue to follow and make further recommendations based on her clinical status I, the cosigning physician, performed a history & physical examination of the patient. Lungs sounds are clear. Maintaining good O2 saturations in the 90s on 3 L/m per nasal cannula. I discussed the assessment and plan of care with my nurse practitioner, Neelam Smalls. I attest to the above consultation as dictated by her. Time with Patient: Greater than 30
--- NOTE | 2021-09-13 11:07 | CONS ---
CONSULTATION This is a 55-year-old female. I was consulted for urgent placement of dialysis catheter. Patient was brought in by the EMS. Patient was confused, very restless. The patient had CT brain in the emergency room that was unremarkable. CT of chest, abdomen and pelvis was unremarkable. The patient had lab work done showing BUN 99, creatinine 10.69, CO2 9, and creatine kinase 4846. Urine grossly abnormal. COVID positive. MEDICAL HISTORY: History of type 2 diabetes, hypertension, hyperlipidemia, multiple sclerosis. SURGICAL HISTORY: No past history of any surgical intervention. PHYSICAL EXAMINATION: Patient was seen in her room. Very restless. Neck supple. Chest has good air entry in both lungs. First and second sounds normal. Abdomen is soft, non-tender. Femorals are 1+. PLAN: Placement of dialysis catheter. Risks and complications discussed. MMODL / IJN: [id number] /
[2021-09-13 11:19] LABS: Protein, Total 5.5 g/dL (6.2-8.2)
--- NOTE | 2021-09-13 11:43 | P.PN ---
Subjective Progress Note Date: 09/13/21 Principal diagnosis: CC: Altered mental status The patient is a 55-year-old female with a PMH of hypertension, hyperlipidemia, type II DM, and multiple sclerosis and history of multiple UTIs was brought to the emergency room due to altered mental status. Patient was found to be in acute renal failure. She is admitted to the ICU for emergent dialysis. 09/13/2021: Patient was seen in the ICU. She is getting dialysis. Patient is moaning and groaning. She still remains confused. She is also on soft restraints for upper extremities Objective - Vital Signs Vital signs: Vital Signs Temp 99.8 F H 09/13/21 08:00 Pulse 98 09/13/21 10:00 Resp 14 09/13/21 10:00 BP 112/77 09/13/21 10:00 Pulse Ox 94 L 09/13/21 10:00 Intake & Output 09/12/21 09/13/21 09/13/21 18:59 06:59 18:59 Intake Total 742.513 650 Output Total 530 375 Balance 212.513 275 Weight 108.862 kg 99 kg Intake: Intake, IV Titration 742.513 650 Amount Dextrose 5% in Water 1, 700 400 000 ml @ 100 mls/hr IV . [id number] PEDRO with Sodium Bicarb (1 Meq/ml) 150 ml Rx#:[id number] Norepinephrine 4 mg In 42.513 Sodium Chloride 0.9% 250 ml @ 0.05 MCG/KG/MIN 20. 738 mls/hr IV .[id number] PEDRO Rx#:[id number] Potassium Chloride 10 meq 200 In Water For Injection 1 100ml.bag @ 100 mls/hr IVPB Q1H PEDRO Rx#: [id number] cefTRIAXone 1 gm In 50 Sodium Chloride 0.9% 50 ml @ 100 mls/hr IVPB Q24HR PEDRO Rx#:[id number] Output: Urine 530 375 Hemodialysis 0 Other: Voiding Method Indwelling Catheter - Exam General examination - Alert and Oriented 0 Heart - + S1S2 no murmurs Lungs - diminished but does bilaterally Abdomen soft NT ND +ve BS Extremities - No edema SENIOR ADMINISTRATIVE SUPPORT - unable to assess Psych - delirious - Labs CBC & Chem 7: 09/13/21 06:06 09/13/21 06:06 Labs: Abnormal Lab Results - Last 24 Hours (Table) 09/12/21 09/12/21 09/12/21 Range/Units 18:04 18:04 18:04 WBC 12.3 H (3.8-10.6) k/uL RBC (3.80-5.40) m/uL Hgb (11.4-16.0) gm/dL Hct (34.0-46.0) % Neutrophils # (Manual) 11.00 H (1.3-7.7) k/uL Lymphocytes # (Manual) 0.49 L (1.0-4.8) k/uL Metamyelocytes # (Man) (0) k/uL Myelocytes # (Manual) (0) k/uL Sodium 135 L (137-145) mmol/L Potassium (3.5-5.1) mmol/L Chloride 95 L (98-107) mmol/L Carbon Dioxide 9 L* (22-30) mmol/L BUN 99 H (7-17) mg/dL Creatinine 10.69 H* (0.52-1.04) mg/dL Glucose 140 H (74-99) mg/dL POC Glucose (mg/dL) (75-99) mg/dL Hemoglobin A1c (0.0-6.0) % Calcium (8.4-10.2) mg/dL Phosphorus (2.5-4.5) mg/dL Magnesium 2.9 H (1.6-2.3) mg/dL AST 279 H (14-36) U/L ALT 144 H (4-34) U/L Lactate Dehydrogenase (313-618) U/L Creatine Kinase (30-135) U/L Total Protein (6.3-8.2) g/dL Total Protein (PEP) (6.2-8.2) g/dL Albumin (3.5-5.0) g/dL Urine Appearance Turbid H (Clear) Urine Protein 2+ H (Negative) Urine Glucose (UA) Trace H (Negative) Urine Blood Small H (Negative) Ur Leukocyte Esterase Small H (Negative) Urine WBC 6 H (0-5) /hpf Ur Squamous Epith Cells 29 H (0-4) /hpf Urine Bacteria Moderate H (None) /hpf Urine Mucus Rare H (None) /hpf Coronavirus (PCR) (Not Detectd) 09/12/21 09/12/21 09/12/21 Range/Units 18:04 21:04 23:33 WBC (3.8-10.6) k/uL RBC (3.80-5.40) m/uL Hgb (11.4-16.0) gm/dL Hct (34.0-46.0) % Neutrophils # (Manual) (1.3-7.7) k/uL Lymphocytes # (Manual) (1.0-4.8) k/uL Metamyelocytes # (Man) (0) k/uL Myelocytes # (Manual) (0) k/uL Sodium (137-145) mmol/L Potassium (3.5-5.1) mmol/L Chloride (98-107) mmol/L Carbon Dioxide (22-30) mmol/L BUN (7-17) mg/dL Creatinine (0.52-1.04) mg/dL Glucose (74-99) mg/dL POC Glucose (mg/dL) 136 H (75-99) mg/dL Hemoglobin A1c (0.0-6.0) % Calcium (8.4-10.2) mg/dL Phosphorus (2.5-4.5) mg/dL Magnesium (1.6-2.3) mg/dL AST (14-36) U/L ALT (4-34) U/L Lactate Dehydrogenase (313-618) U/L Creatine Kinase 4846 H* (30-135) U/L Total Protein (6.3-8.2) g/dL Total Protein (PEP) (6.2-8.2) g/dL Albumin (3.5-5.0) g/dL Urine Appearance (Clear) Urine Protein (Negative) Urine Glucose (UA) (Negative) Urine Blood (Negative) Ur Leukocyte Esterase (Negative) Urine WBC (0-5) /hpf Ur Squamous Epith Cells (0-4) /hpf Urine Bacteria (None) /hpf Urine Mucus (None) /hpf Coronavirus (PCR) Detected A (Not Detectd) 09/13/21 09/13/21 09/13/21 Range/Units 01:47 01:47 05:54 WBC (3.8-10.6) k/uL RBC (3.80-5.40) m/uL Hgb (11.4-16.0) gm/dL Hct (34.0-46.0) % Neutrophils # (Manual) (1.3-7.7) k/uL Lymphocytes # (Manual) (1.0-4.8) k/uL Metamyelocytes # (Man) (0) k/uL Myelocytes # (Manual) (0) k/uL Sodium (137-145) mmol/L Potassium (3.5-5.1) mmol/L Chloride (98-107) mmol/L Carbon Dioxide (22-30) mmol/L BUN (7-17) mg/dL Creatinine (0.52-1.04) mg/dL Glucose (74-99) mg/dL POC Glucose (mg/dL) 154 H (75-99) mg/dL Hemoglobin A1c (0.0-6.0) % Calcium (8.4-10.2) mg/dL Phosphorus (2.5-4.5) mg/dL Magnesium (1.6-2.3) mg/dL AST (14-36) U/L ALT (4-34) U/L Lactate Dehydrogenase 1350 H (313-618) U/L Creatine Kinase (30-135) U/L Total Protein (6.3-8.2) g/dL Total Protein (PEP) 5.5 L (6.2-8.2) g/dL Albumin (3.5-5.0) g/dL Urine Appearance (Clear) Urine Protein (Negative) Urine Glucose (UA) (Negative) Urine Blood (Negative) Ur Leukocyte Esterase (Negative) Urine WBC (0-5) /hpf Ur Squamous Epith Cells (0-4) /hpf Urine Bacteria (None) /hpf Urine Mucus (None) /hpf Coronavirus (PCR) (Not Detectd) 09/13/21 09/13/21 09/13/21 Range/Units 06:06 06:06 06:06 WBC (3.8-10.6) k/uL RBC 3.59 L (3.80-5.40) m/uL Hgb 10.5 L (11.4-16.0) gm/dL Hct 32.3 L (34.0-46.0) % Neutrophils # (Manual) (1.3-7.7) k/uL Lymphocytes # (Manual) 0.90 L (1.0-4.8) k/uL Metamyelocytes # (Man) 0.12 H (0) k/uL Myelocytes # (Manual) 0.12 H (0) k/uL Sodium (137-145) mmol/L Potassium 3.3 L (3.5-5.1) mmol/L Chloride (98-107) mmol/L Carbon Dioxide 15 L (22-30) mmol/L BUN 71 H (7-17) mg/dL Creatinine 5.26 H (0.52-1.04) mg/dL Glucose 143 H (74-99) mg/dL POC Glucose (mg/dL) (75-99) mg/dL Hemoglobin A1c 6.9 H (0.0-6.0) % Calcium 8.1 L (8.4-10.2) mg/dL Phosphorus 7.2 H (2.5-4.5) mg/dL Magnesium 2.5 H (1.6-2.3) mg/dL AST 223 H (14-36) U/L ALT 125 H (4-34) U/L Lactate Dehydrogenase (313-618) U/L Creatine Kinase (30-135) U/L Total Protein 5.5 L (6.3-8.2) g/dL Total Protein (PEP) (6.2-8.2) g/dL Albumin 3.0 L (3.5-5.0) g/dL Urine Appearance (Clear) Urine Protein (Negative) Urine Glucose (UA) (Negative) Urine Blood (Negative) Ur Leukocyte Esterase (Negative) Urine WBC (0-5) /hpf Ur Squamous Epith Cells (0-4) /hpf Urine Bacteria (None) /hpf Urine Mucus (None) /hpf Coronavirus (PCR) (Not Detectd) Assessment and Plan Assessment: Acute renal failure, with rhabdomyolysis Metabolic acidosis -Nephrology on board -Patient had hemodialysis on 09/12/2021 and again this morning -Per prior to this patient was complaining of back pain. Multiple myeloma workup in progress -Bicarb drip as per nephrology -Improving with dialysis UTI -Resume IV rocephine -follow up cultures COVID 19 -Patient satting well on room air -Decadron day 1 -Lovenox -Pulmonology on board Acute toxic metabolic encephalopathy secondary to above -Continue with above management -Patient still remains confused -Patient currently is in soft restraints. -IV Haldol when necessary for agitation Chronic conditions: Type 2 DM, hypertension, hyperlipidemia, multiple sclerosis -Insulin sliding scale and blood glucose monitoring -Hold lisinopril and hctz -Monitor blood glucose -Check A1c DVT prophylaxis -Heparin subcu CODE STATUS:Full Code Discussed with: Anticipated discharge date: Undetermined Anticipated discharge place: Likely home
[2021-09-13 12:03] LABS: Glucose,Whole Blood 146 mg/dL (75-99)
--- NOTE | 2021-09-13 16:34 | P.NPCON ---
History of Present Illness - Reason for Consult acute renal failure - History of Present Illness Patient is a 55-year-old female who has a previous history of multiple sclerosis hypertension type 2 diabetes and frequent urinary tract infections. Patient was admitted to the hospital with mental status changes and increased drowsiness. She recently started a medication for insomnia. There is no prior history of kidney diseases. On admission patient was noted to have a creatinine of 10.6.. Initially there was no significant urine output however urine output has picked up overnight. Patient has received fluid boluses and is currently maintained on IV fluids at 100 mL an hour. Blood pressure was low with systolic in the 80-90 range. Patient was maintained on LOU inhibitor as prior to admission. I do see nonsteroidal anti-inflammatory agents on her med list. Due to significant mental status changes and severe acidosis patient was dialyzed last night. She tolerated her treatment well and is seen on dialysis again today. Patient remains confused she is currently in restraints. Review of Systems As per HPI. No fever nausea vomiting diarrhea noted. Past Medical History Additional Past Medical History / Comment(s): MS History of Any Multi-Drug Resistant Organisms: None Reported Past Surgical History: No Surgical Hx Reported Past Psychological History: No Psychological Hx Reported Smoking Status: Never smoker Past Alcohol Use History: None Reported Past Drug Use History: None Reported - Past Family History Father Family Medical History: Unable to Obtain (Due to patient's altered mental status) Medications and Allergies Home Medications Medication Instructions Recorded Confirmed Type Cyclobenzaprine [Flexeril] 10 mg PO HS PRN 09/12/21 09/12/21 History DULoxetine HCL [Cymbalta] 60 mg PO BID 09/12/21 09/12/21 History Dextroamphetamine/Amphetamine 10 mg PO DIRECTED 09/12/21 09/12/21 History [Adderall] Dextroamphetamine/Amphetamine 30 mg PO DIRECTED 09/12/21 09/12/21 History [Adderall] Enalapril [Vasotec] 20 mg PO DAILY 09/12/21 09/12/21 History Estrogens, Conjugated Cream 1 applicator VAGINAL DIRECTED 09/12/21 09/12/21 History [Premarin Vaginal Cream] PRN LORazepam [Ativan] 0.5 mg PO TID 09/12/21 09/12/21 History Meloxicam 15 mg PO DAILY PRN 09/12/21 09/12/21 History Nitrofurantoin Monohyd/M-Cryst 100 mg PO DAILY PRN 09/12/21 09/12/21 History [Macrobid] Simvastatin [Zocor] 20 mg PO HS 09/12/21 09/12/21 History Zolpidem [Ambien] 10 mg PO HS 09/12/21 09/12/21 History hydroCHLOROthiazide [Hydrodiuril] 25 mg PO DAILY 09/12/21 09/12/21 History metFORMIN HCL 500 mg PO AC-BID 09/12/21 09/12/21 History rOPINIRole HCL [Requip] 1 mg PO HS 09/12/21 09/12/21 History Glatiramer Acetate [Copaxone] 40 mg SQ MOWEFR 09/13/21 09/13/21 History Allergies Allergy/AdvReac Type Severity Reaction Status Date / Time No Known Allergies Allergy Verified 09/12/21 18:08 Physical Exam Vitals: Vital Signs Temp Pulse Pulse Resp BP BP Pulse Ox 09/13/21 15:30 105 H 0 L 131/66 97 09/13/21 15:00 80 16 130/68 83 L 09/13/21 14:30 93 10 L 136/74 92 L 09/13/21 14:00 77 20 152/94 89 L 09/13/21 13:30 60 19 128/65 91 L 09/13/21 13:00 55 L 9 L 112/68 92 L 09/13/21 12:49 98.3 F 55 L 23 94/61 09/13/21 12:30 69 17 125/79 93 L 09/13/21 12:00 97.9 F 59 L 19 124/64 92 L 09/13/21 11:30 61 14 117/57 94 L 09/13/21 11:00 82 15 125/64 94 L 09/13/21 10:30 92 19 118/65 95 09/13/21 10:00 98 14 112/77 94 L 09/13/21 09:30 91 22 113/82 94 L 09/13/21 09:00 89 21 112/55 95 09/13/21 08:30 87 15 108/54 95 09/13/21 08:00 99.8 F H 88 17 97/56 95 09/13/21 07:30 85 13 101/51 96 09/13/21 07:00 84 13 85/52 95 09/13/21 06:30 90 18 90/48 96 09/13/21 06:00 93 15 99/46 96 09/13/21 05:30 95 16 122/71 95 09/13/21 05:00 102 H 20 132/85 95 09/13/21 04:30 101 H 20 109/87 96 09/13/21 04:00 98.3 F 94 22 94/56 97 09/13/21 03:30 81 15 90/56 98 09/13/21 03:00 85 13 103/55 98 09/13/21 02:50 84 14 103/55 97 09/13/21 02:40 85 17 101/54 97 09/13/21 02:30 83 15 108/59 97 09/13/21 02:20 82 16 108/59 97 09/13/21 02:10 83 15 114/76 97 09/13/21 02:00 77 15 118/63 98 09/13/21 01:50 78 17 102/63 98 09/13/21 01:40 77 16 105/57 98 09/13/21 01:30 77 16 95/68 97 09/13/21 01:20 77 16 97/56 97 09/13/21 01:10 78 16 97/51 97 09/13/21 01:00 76 17 88/51 97 09/13/21 00:50 76 13 80/45 96 09/13/21 00:40 80 17 86/46 97 09/13/21 00:30 84 18 73/43 97 09/13/21 00:20 85 17 72/42 97 09/13/21 00:15 87 16 76/38 97 09/13/21 00:10 84 18 77/43 97 09/13/21 00:00 87 16 83/47 97 09/12/21 23:50 97 25 H 106/77 94 L 09/12/21 23:40 25 H 106/77 97 09/12/21 23:39 106/77 97 09/12/21 23:38 97 09/12/21 23:15 91 19 95/56 97 09/12/21 23:00 64 24 111/52 97 09/12/21 22:35 96 111/52 96 09/12/21 22:30 71 19 95/57 94 L 09/12/21 22:15 67 20 99/49 97 09/12/21 22:00 65 20 102/63 96 09/12/21 21:46 99 22 145/72 99 09/12/21 21:45 78 18 145/72 97 09/12/21 21:30 70 18 106/62 95 09/12/21 21:15 87 19 128/68 95 09/12/21 21:00 88 19 109/55 97 09/12/21 20:45 96 19 84/64 100 09/12/21 20:30 96 20 95/57 100 09/12/21 20:25 96 19 87/43 100 09/12/21 20:20 99 19 98/56 98 09/12/21 20:15 88 19 75/40 100 09/12/21 20:10 88 19 72/42 100 09/12/21 20:05 90 19 79/40 100 09/12/21 20:00 81 19 92/38 99 09/12/21 19:55 88 19 80/46 68 L 09/12/21 19:50 90 19 86/48 99 09/12/21 19:45 91 15 90/56 97 09/12/21 19:43 70 12 91/77 68 L 09/12/21 19:40 89 14 91/77 98 09/12/21 19:36 78 20 107/68 100 09/12/21 19:34 76 22 110/78 98 09/12/21 17:47 144/126 09/12/21 17:36 98.4 F 110 H 18 94 L Intake and Output 09/13/21 09/13/21 09/13/21 06:59 14:59 22:59 Intake Total 031.292 3262 200 Output Total 530 515 85 Balance 212.513 535 115 Intake: Intake, IV Titration 928.919 5179 200 Amount Dextrose 5% in Water 1, 700 800 200 000 ml @ 100 mls/hr IV . [id number] [facility]EDRO with Sodium Bicarb (1 Meq/ml) 150 ml Rx#:[id number] Norepinephrine 4 mg In 42.513 Sodium Chloride 0.9% 250 ml @ 0.05 MCG/KG/MIN 20. 738 mls/hr IV .[id number] PEDRO Rx#:[id number] Potassium Chloride 10 meq 200 In Water For Injection 1 100ml.bag @ 100 mls/hr IVPB Q1H [facility] Rx#: [id number] cefTRIAXone 1 gm In 50 Sodium Chloride 0.9% 50 ml @ 100 mls/hr IVPB Q24HR [facility] Rx#:[id number] Output: Urine 530 515 85 Hemodialysis 0 0 Other: Voiding Method Indwelling Catheter Indwelling Catheter Weight 99 kg Patient is awake she is confused currently in restraints. Not in any acute distress. Patient is moving all 4 extremities. 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 Acute kidney injury mostly ATN currently nonoliguric. Blood pressure has been low and patient was maintained on LOU inhibitor and nonsteroidal anti- inflammatory agents prior to admission. No hydronephrosis noted on CT of the abdomen and pelvis. Patient did receive IV contrast for this CAT scan. UA shows 2+ protein and trace blood. If renal function does not improve she will need workup for possible underlying GN. 2. Metabolic acidosis anion gap, secondary to renal failure. Currently maintained on IV bicarb and improved post dialysis. 3. Encephalopathy, uremic, expect improvement with renal replacement therapy. 4. History of hypertension currently blood pressure is low. 5. Hypokalemia post dialysis will replace cautiously. 6. Rhabdomyolysis [id number] Plan: Repeat hemodialysis today 2. Continue with the sodium bicarb 3. Repeat labs in a.m. and adjust IV fluids accordingly 4. Replace potassium cautiously 5. Avoid any further nephrotoxic agents 6. If renal function does not improve patient will need workup for GN as she is noticed to have proteinuria Thank you for the consultation, we'll continue to follow the patient with you during her hospitalization
--- NOTE | 2021-09-13 17:15 | XR ---
EXAMINATION TYPE: XR chest 1V portable DATE OF EXAM: 09/13/2021 5:06 PM COMPARISON:None TECHNIQUE: Frontal view of the chest. CLINICAL INDICATION:Female, 55 years old with history of chf, sob; FINDINGS: Lungs/Pleura: There is no evidence of pleural effusion, focal consolidation, or pneumothorax. Pulmonary vascularity: Mild pulmonary vascular congestion. Heart/mediastinum: Cardiomediastinal silhouette is unremarkable. Musculoskeletal:No acute osseous pathology. IMPRESSION: mild pulmonary vascular congestion. Correlate with BNP for congestive heart failure.
[2021-09-13 17:22] LABS: Glucose,Whole Blood 187 mg/dL (75-99)
[2021-09-13 17:55] LABS: ABG HCO3 26 mmol/L (21-25); ABG PCO2 50 mmHg (35-45); ABG PH 7.33 (7.35-7.45); ABG PO2 280 mmHg (83-108); ABG TCO2 28 mmol/L (19-24); Allen Test Performed? Yes
[2021-09-13] MEDS ORDERED: ATORVASTATIN 10 MG TAB PO SCH (21:00)
[2021-09-13 21:12] LABS: Glucose,Whole Blood 173 mg/dL (75-99)
[2021-09-13] MEDS ORDERED: MORPHINE SULFATE 2 MG/ML SYRINGE IVP ONE (22:20)
[2021-09-14] MEDS ORDERED: MORPHINE SULFATE 2 MG/ML SYRINGE IVP PRN (03:03)
[2021-09-14] MEDS: NOREPINEPHRINE 4 MG in SODIUM CHLORIDE 0.9% 250 ML IV SCH ×2 (06:24→14:14)
[2021-09-14 06:53] LABS: Glucose,Whole Blood 176 mg/dL (75-99)
[2021-09-14] MEDS: INSULIN ASPART (NovoLOG) 100 UNIT/ML VIAL SQ SCH ×4 (07:06→20:42)
[2021-09-14 07:20] LABS: HCT 31.4 % (34.0-46.0); HGB 10.4 gm/dL (11.4-16.0); MCH 29.5 pg (25.0-35.0); MCHC 33.1 g/dL (31.0-37.0); MCV 89.3 fL (80.0-100.0); Mean Platelet Volume 7.6; Platelet Count 268 k/uL (150-450); RBC 3.52 m/uL (3.80-5.40); RDW 14.1 % (11.5-15.5); WBC 10.4 k/uL (3.8-10.6)
[2021-09-14 07:37] LABS: Calcium 8.8 mg/dL (8.4-10.2); Magnesium 2.4 mg/dL (1.6-2.3); Phosphorus 3.1 mg/dL (2.5-4.5); Potassium 2.9 mmol/L (3.5-5.1)
[2021-09-14] MEDS: PANTOPRAZOLE 40 MG/10 ML VIAL IVP SCH (08:10)
[2021-09-14] MEDS: DEXAMETHASONE SOD PHOSPHATE 10 MG/ML 1 ML VIAL IVP SCH (08:11)
[2021-09-14] MEDS: ENOXAPARIN 30 MG/0.3 ML SYRINGE SQ SCH (08:11)
[2021-09-14] MEDS ORDERED: POTASSIUM CHLORIDE 20 MEQ in WATER FOR INJECTION 1 100ML.BAG IVPB SCH (09:00)
--- NOTE | 2021-09-14 09:02 | P.PN ---
Subjective Patient is seen in follow-up for acute kidney injury. Her second treatment of dialysis was yesterday. Urine output 75-100 mL an hour. On 3 L nasal cannula. Off vasopressors. On bicarb drip. Vital signs are stable. Resting in bed. Regular rate and rhythm noted on the monitor. No gross edema noted. Exam discussed with the nurse. Objective - Vital Signs Vital signs: Vital Signs Temp 98.2 F 09/14/21 08:00 Pulse 85 09/14/21 08:30 Resp 25 H 09/14/21 08:30 BP 173/92 09/14/21 08:30 Pulse Ox 97 09/14/21 08:30 Intake & Output 09/13/21 09/14/21 09/14/21 18:59 06:59 18:59 Intake Total 1450 1200 250 Output Total 750 875 150 Balance 700 325 100 Intake: IV 1100 250 Dextrose 5% in Water 1, 1100 200 000 ml @ 100 mls/hr IV . [id number] [facility]RO with Sodium Bicarb (1 Meq/ml) 150 ml Rx#:[id number] cefTRIAXone 1 gm In 50 Sodium Chloride 0.9% 50 ml @ 100 mls/hr IVPB Q24HR [facility] Rx#:[id number] Intake, IV Titration 1450 100 Amount Dextrose 5% in Water 1, 1200 100 000 ml @ 100 mls/hr IV . [id number] PEDRO with Sodium Bicarb (1 Meq/ml) 150 ml Rx#:[id number] Potassium Chloride 10 meq 200 In Water For Injection 1 100ml.bag @ 100 mls/hr IVPB Q1H [facility] Rx#: [id number] cefTRIAXone 1 gm In 50 Sodium Chloride 0.9% 50 ml @ 100 mls/hr IVPB Q24HR [facility] Rx#:[id number] Output: Urine 750 875 150 Hemodialysis 0 Other: Voiding Method Indwelling Catheter Indwelling Catheter - Labs CBC & Chem 7: 09/14/21 06:42 09/14/21 06:42 Labs: Abnormal Lab Results - Last 24 Hours (Table) 09/13/21 09/13/21 09/13/21 Range/Units 01:47 06:06 10:57 RBC (3.80-5.40) m/uL Hgb (11.4-16.0) gm/dL Hct (34.0-46.0) % D-Dimer 6.43 H (<0.60) mg/L FEU ABG pH (7.35-7.45) ABG pCO2 (35-45) mmHg ABG pO2 (83-108) mmHg ABG HCO3 (21-25) mmol/L ABG Total CO2 (19-24) mmol/L ABG O2 Saturation (94-97) % Potassium (3.5-5.1) mmol/L Carbon Dioxide (22-30) mmol/L BUN (7-17) mg/dL Glucose (74-99) mg/dL POC Glucose (mg/dL) (75-99) mg/dL Hemoglobin A1c 6.9 H (0.0-6.0) % Magnesium (1.6-2.3) mg/dL Total Protein (PEP) 5.5 L (6.2-8.2) g/dL 09/13/21 09/13/21 09/13/21 Range/Units 12:02 17:20 17:53 RBC (3.80-5.40) m/uL Hgb (11.4-16.0) gm/dL Hct (34.0-46.0) % D-Dimer (<0.60) mg/L FEU ABG pH 7.33 L (7.35-7.45) ABG pCO2 50 H (35-45) mmHg ABG pO2 280 H (83-108) mmHg ABG HCO3 26 H (21-25) mmol/L ABG Total CO2 28 H (19-24) mmol/L ABG O2 Saturation 100.0 H (94-97) % Potassium (3.5-5.1) mmol/L Carbon Dioxide (22-30) mmol/L BUN (7-17) mg/dL Glucose (74-99) mg/dL POC Glucose (mg/dL) 146 H 187 H (75-99) mg/dL Hemoglobin A1c (0.0-6.0) % Magnesium (1.6-2.3) mg/dL Total Protein (PEP) (6.2-8.2) g/dL 09/13/21 09/14/21 09/14/21 Range/Units 21:09 06:42 06:42 RBC 3.52 L (3.80-5.40) m/uL Hgb 10.4 L (11.4-16.0) gm/dL Hct 31.4 L (34.0-46.0) % D-Dimer (<0.60) mg/L FEU ABG pH (7.35-7.45) ABG pCO2 (35-45) mmHg ABG pO2 (83-108) mmHg ABG HCO3 (21-25) mmol/L ABG Total CO2 (19-24) mmol/L ABG O2 Saturation (94-97) % Potassium 2.9 L (3.5-5.1) mmol/L Carbon Dioxide 31 H (22-30) mmol/L BUN 45 H (7-17) mg/dL Glucose 173 H (74-99) mg/dL POC Glucose (mg/dL) 173 H (75-99) mg/dL Hemoglobin A1c (0.0-6.0) % Magnesium 2.4 H (1.6-2.3) mg/dL Total Protein (PEP) (6.2-8.2) g/dL 09/14/21 Range/Units 06:51 RBC (3.80-5.40) m/uL Hgb (11.4-16.0) gm/dL Hct (34.0-46.0) % D-Dimer (<0.60) mg/L FEU ABG pH (7.35-7.45) ABG pCO2 (35-45) mmHg ABG pO2 (83-108) mmHg ABG HCO3 (21-25) mmol/L ABG Total CO2 (19-24) mmol/L ABG O2 Saturation (94-97) % Potassium (3.5-5.1) mmol/L Carbon Dioxide (22-30) mmol/L BUN (7-17) mg/dL Glucose (74-99) mg/dL POC Glucose (mg/dL) 176 H (75-99) mg/dL Hemoglobin A1c (0.0-6.0) % Magnesium (1.6-2.3) mg/dL Total Protein (PEP) (6.2-8.2) g/dL Assessment and Plan Plan: Assessment: 1. Acute kidney injury secondary to ATN secondary to hypotension and nonsteroidals. No hydronephrosis noted on CAT scan. She did receive IV contrast on September 12 for the CAT scan. Nonoliguric. Acidosis resolved. Creatinine 0.9 today. 2. Hypokalemia from poor intake and intrasellar shifting from IV bicarb. 3. Metabolic acidosis secondary to acute kidney injury maintained on bicarb drip. Resolved. 4. Benign hypertension. 5. Toxic metabolic encephalopathy. No significant improvement post dialysis. 6. Acute hypoxia respiratory failure. 7. COVID-19 infection. Plan: Stop bicarb drip. Start normal saline at 75 mL an hour. Potassium being replaced. Hold dialysis.
[2021-09-14 09:34] LABS: Band Neutrophils % 11 %; Lymphocytes # (M) 0.73 k/uL (1.0-4.8); Metamyelocytes # (M) 0.21 k/uL (0); Metamyelocytes % 2 %; Monocytes # (M) 0.62 k/uL (0-1.0); Neutrophils % (M) 76 %; Nucleated Red Blood Cells 0 /100 WBC (0-0); Total Cells Counted 200
[2021-09-14 09:40] LABS: RBC Morphology Normal
[2021-09-14] MEDS: SODIUM CHLORIDE 0.9% 1,000 ML IV SCH ×2 (09:47→20:43)
[2021-09-14] MEDS: POTASSIUM CHLORIDE 10 MEQ in WATER FOR INJECTION 1 100ML.BAG IVPB SCH ×6 (09:48→16:38)
--- NOTE | 2021-09-14 11:07 | P.PN ---
Subjective Progress Note Date: 09/14/21 Principal diagnosis: CC: Altered mental status The patient is a 55-year-old female with a PMH of hypertension, hyperlipidemia, type II DM, and multiple sclerosis and history of multiple UTIs was brought to the emergency room due to altered mental status. Patient was found to be in acute renal failure. She is admitted to the ICU for emergent dialysis. 09/14/2021: Patient was seen in the ICU. She remains on soft restraints. She is AAO 1. There is only mild improvement in her mental status. She still remains delirious. Patient's BUN is improving. Objective - Vital Signs Vital signs: Vital Signs Temp 98.2 F 09/14/21 08:00 Pulse 78 09/14/21 10:00 Resp 13 09/14/21 10:00 BP 173/97 09/14/21 10:00 Pulse Ox 97 09/14/21 10:12 Intake & Output 09/13/21 09/14/21 09/14/21 18:59 06:59 18:59 Intake Total 1450 1200 250 Output Total 750 875 150 Balance 700 325 100 Intake: IV 1100 250 Dextrose 5% in Water 1, 1100 200 000 ml @ 100 mls/hr IV . [id number] PEDRO with Sodium Bicarb (1 Meq/ml) 150 ml Rx#:[id number] cefTRIAXone 1 gm In 50 Sodium Chloride 0.9% 50 ml @ 100 mls/hr IVPB Q24HR [facility] Rx#:[id number] Intake, IV Titration 1450 100 Amount Dextrose 5% in Water 1, 1200 100 000 ml @ 100 mls/hr IV . 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 She is moving all 4 extremities spontaneously Psych - delirious - Labs CBC & Chem 7: 09/14/21 06:42 09/14/21 06:42 Labs: Abnormal Lab Results - Last 24 Hours (Table) 09/13/21 09/13/21 09/13/21 Range/Units 01:47 10:57 12:02 RBC (3.80-5.40) m/uL Hgb (11.4-16.0) gm/dL Hct (34.0-46.0) % Neutrophils # (Manual) (1.3-7.7) k/uL Lymphocytes # (Manual) (1.0-4.8) k/uL Metamyelocytes # (Man) (0) k/uL D-Dimer 6.43 H (<0.60) mg/L FEU ABG pH (7.35-7.45) ABG pCO2 (35-45) mmHg ABG pO2 (83-108) mmHg ABG HCO3 (21-25) mmol/L ABG Total CO2 (19-24) mmol/L ABG O2 Saturation (94-97) % Potassium (3.5-5.1) mmol/L Carbon Dioxide (22-30) mmol/L BUN (7-17) mg/dL Glucose (74-99) mg/dL POC Glucose (mg/dL) 146 H (75-99) mg/dL Magnesium (1.6-2.3) mg/dL Total Protein (PEP) 5.5 L (6.2-8.2) g/dL 09/13/21 09/13/21 09/13/21 Range/Units 17:20 17:53 21:09 RBC (3.80-5.40) m/uL Hgb (11.4-16.0) gm/dL Hct (34.0-46.0) % Neutrophils # (Manual) (1.3-7.7) k/uL Lymphocytes # (Manual) (1.0-4.8) k/uL Metamyelocytes # (Man) (0) k/uL D-Dimer (<0.60) mg/L FEU ABG pH 7.33 L (7.35-7.45) ABG pCO2 50 H (35-45) mmHg ABG pO2 280 H (83-108) mmHg ABG HCO3 26 H (21-25) mmol/L ABG Total CO2 28 H (19-24) mmol/L ABG O2 Saturation 100.0 H (94-97) % Potassium (3.5-5.1) mmol/L Carbon Dioxide (22-30) mmol/L BUN (7-17) mg/dL Glucose (74-99) mg/dL POC Glucose (mg/dL) 187 H 173 H (75-99) mg/dL Magnesium (1.6-2.3) mg/dL Total Protein (PEP) (6.2-8.2) g/dL 09/14/21 09/14/21 09/14/21 Range/Units 06:42 06:42 06:51 RBC 3.52 L (3.80-5.40) m/uL Hgb 10.4 L (11.4-16.0) gm/dL Hct 31.4 L (34.0-46.0) % Neutrophils # (Manual) 9.00 H (1.3-7.7) k/uL Lymphocytes # (Manual) 0.73 L (1.0-4.8) k/uL Metamyelocytes # (Man) 0.21 H (0) k/uL D-Dimer (<0.60) mg/L FEU ABG pH (7.35-7.45) ABG pCO2 (35-45) mmHg ABG pO2 (83-108) mmHg ABG HCO3 (21-25) mmol/L ABG Total CO2 (19-24) mmol/L ABG O2 Saturation (94-97) % Potassium 2.9 L (3.5-5.1) mmol/L Carbon Dioxide 31 H (22-30) mmol/L BUN 45 H (7-17) mg/dL Glucose 173 H (74-99) mg/dL POC Glucose (mg/dL) 176 H (75-99) mg/dL Magnesium 2.4 H (1.6-2.3) mg/dL Total Protein (PEP) (6.2-8.2) g/dL Assessment and Plan Assessment: Acute renal failure, with rhabdomyolysis Metabolic acidosis -Nephrology on board -Patient had hemodialysis on 09/12/2021 and 09/13/2021 -Per prior to this patient was complaining of back pain. Multiple myeloma workup in progress -Per nephrology okay to stop bicarb and hold dialysis for today -Patient is also making urine output -Improving with dialysis UTI -Resume IV rocephine -follow up cultures COVID 19 -Decadron day 2 -Lovenox -Pulmonology on board Acute toxic metabolic encephalopathy secondary to above -Continue with above management -Patient still remains confused -Patient currently is in soft restraints. -IV Haldol when necessary for agitation -Her mental status is slightly better today however she still very delirious Chronic conditions: Type 2 DM, hypertension, hyperlipidemia, multiple sclerosis -Insulin sliding scale and blood glucose monitoring -Hold lisinopril and hctz -Monitor blood glucose -Check A1c DVT prophylaxis -Heparin subcu CODE STATUS:Full Code Discussed with: Anticipated discharge date: Undetermined Anticipated discharge place: Likely home
--- NOTE | 2021-09-14 11:39 | P.PN ---
Subjective Progress Note Date: 09/14/21 This is a 55-year-old female patient with a known history of multiple sclerosis, hypertension, hyperlipidemia, diabetes mellitus, frequent urinary tract infections and has Macrobid to be used as needed. She was brought into the emergency room yesterday with a history of initially insomnia was placed on m edication by her PCP. She was having issues with ongoing drowsiness the next morning and she had developed altered mental status. She was mumbling and moving her extremities but not seen anything meaningful according to her 's report from the emergency room. Computed tomography scan of the brain revealed no acute process. Computed tomography scan of the chest abdomen and pelvis revealed clear lungs. No significant abnormalities of the abdomen and pelvis. No excretion seen in the kidneys consistent with renal failure. She was found to be in acute renal failure with a presenting BUN of 99 and a creatinine of 10.6. Creatinine kinase 4046. Urinalysis positive for bacteria and blood. Positive coronavirus by PCR. Hepatitis screen nonreactive. LDH 1350. AST 223. ALT 125. White count 6.0. Hemoglobin 10.5. Leukocyte 0.9. An urgent right femoral temporary dialysis catheter was placed yesterday. She did receive hemodialysis and is planning for repeat dialysis again today. Nephrology is on the case. She had been awake but restless throughout the night. She received Ativan. She is seen in consultation today in the ICU. She is moaning. Moving all fours extremities. Not following commands. No purposeful movements. Her BUN is 71 with a creatinine of 5.26 today. She is on heparin for DVT prophylaxis. D5W with 3 A of bicarbonate 100 mL per hour. She is maintaining O2 saturations in the 90s on 3 L/m per nasal cannula. She did require a small amount of norepinephrine during dialysis. Currently off. The patient is seen today 09/14/2021 in follow-up in the intensive care unit. She is currently resting in bed. A bit more awake and alert today compared to yesterday. Still with some moaning's. Some incomprehensible sounds. She is maintaining good O2 saturations in the 90s on 3 L/m per nasal cannula. 0.9 normal saline at 75 ML's per hour. No plans for hemodialysis today. She is remaining on ceftriaxone for suspected UTI. Cultures pending. White count 10.4. Hemoglobin 10.4. Sodium 139. Potassium 2.9. Bicarb 31. Creatinine 0.90. Glucose 173. She remains on Decadron, Lovenox. Objective - Vital Signs Vital signs: Vital Signs Temp 98.2 F 09/14/21 08:00 Pulse 97 09/14/21 11:00 Resp 24 09/14/21 11:00 BP 175/95 09/14/21 11:00 Pulse Ox 97 09/14/21 11:00 Intake & Output 09/13/21 09/14/21 09/14/21 18:59 06:59 18:59 Intake Total 1450 1200 675 Output Total 750 875 270 Balance 700 325 405 Intake: IV 1100 675 Dextrose 5% in Water 1, 1100 200 000 ml @ 100 mls/hr IV . [id number] [facility] with Sodium Bicarb (1 Meq/ml) 150 ml Rx#:[id number] Potassium Chloride 10 meq 200 In Water For Injection 1 100ml.bag @ 100 mls/hr IVPB Q1H [facility] Rx#: [id number] Sodium Chloride 0.9% 1, 225 000 ml @ 75 mls/hr IV . [id number] [facility] Rx#:[id number] cefTRIAXone 1 gm In 50 Sodium Chloride 0.9% 50 ml @ 100 mls/hr IVPB Q24HR [facility] Rx#:[id number] Intake, IV Titration 1450 100 Amount Dextrose 5% in Water 1, 1200 100 000 ml @ 100 mls/hr IV . [id number] [facility] with Sodium Bicarb (1 Meq/ml) 150 ml Rx#:[id number] Potassium Chloride 10 meq 200 In Water For Injection 1 100ml.bag @ 100 mls/hr IVPB Q1H [facility] Rx#: [id number] cefTRIAXone 1 gm In 50 Sodium Chloride 0.9% 50 ml @ 100 mls/hr IVPB Q24HR [facility] Rx#:[id number] Output: Urine 750 875 270 Hemodialysis 0 Other: Voiding Method Indwelling Catheter Indwelling Catheter - Exam GENERAL EXAM: Awake, altered 55-year-old female patient, on 3 L nasal cannula, appears in no acute distress. HEAD: Normocephalic. EYES: Normal reaction of pupils, equal size. NOSE: Clear with pink turbinates. THROAT: No erythema or exudates. NECK: No masses, no JVD. CHEST: No chest wall deformity. LUNGS: Equal air entry with no crackles, wheeze, rhonchi or dullness. CVS: S1 and S2 normal with no audible murmur, regular rhythm. ABDOMEN: No hepatosplenomegaly, normal bowel sounds, no guarding or rigidity. SPINE: No scoliosis or deformity SKIN: No rashes CENTRAL NERVOUS SYSTEM: No focal deficits, tone is normal in all 4 extremities. EXTREMITIES: Right femoral temporary dialysis catheter in place. There is no peripheral edema. No clubbing, no cyanosis. Peripheral pulses are intact. - Labs CBC & Chem 7: 09/14/21 06:42 09/14/21 06:42 Labs: Abnormal Lab Results - Last 24 Hours (Table) 09/13/21 09/13/21 09/13/21 Range/Units 10:57 12:02 17:20 RBC (3.80-5.40) m/uL Hgb (11.4-16.0) gm/dL Hct (34.0-46.0) % Neutrophils # (Manual) (1.3-7.7) k/uL Lymphocytes # (Manual) (1.0-4.8) k/uL Metamyelocytes # (Man) (0) k/uL D-Dimer 6.43 H (<0.60) mg/L FEU ABG pH (7.35-7.45) ABG pCO2 (35-45) mmHg ABG pO2 (83-108) mmHg ABG HCO3 (21-25) mmol/L ABG Total CO2 (19-24) mmol/L ABG O2 Saturation (94-97) % Potassium (3.5-5.1) mmol/L Carbon Dioxide (22-30) mmol/L BUN (7-17) mg/dL Glucose (74-99) mg/dL POC Glucose (mg/dL) 146 H 187 H (75-99) mg/dL Magnesium (1.6-2.3) mg/dL 09/13/21 09/13/21 09/14/21 Range/Units 17:53 21:09 06:42 RBC 3.52 L (3.80-5.40) m/uL Hgb 10.4 L (11.4-16.0) gm/dL Hct 31.4 L (34.0-46.0) % Neutrophils # (Manual) 9.00 H (1.3-7.7) k/uL Lymphocytes # (Manual) 0.73 L (1.0-4.8) k/uL Metamyelocytes # (Man) 0.21 H (0) k/uL D-Dimer (<0.60) mg/L FEU ABG pH 7.33 L (7.35-7.45) ABG pCO2 50 H (35-45) mmHg ABG pO2 280 H (83-108) mmHg ABG HCO3 26 H (21-25) mmol/L ABG Total CO2 28 H (19-24) mmol/L ABG O2 Saturation 100.0 H (94-97) % Potassium (3.5-5.1) mmol/L Carbon Dioxide (22-30) mmol/L BUN (7-17) mg/dL Glucose (74-99) mg/dL POC Glucose (mg/dL) 173 H (75-99) mg/dL Magnesium (1.6-2.3) mg/dL 09/14/21 09/14/21 Range/Units 06:42 06:51 RBC (3.80-5.40) m/uL Hgb (11.4-16.0) gm/dL Hct (34.0-46.0) % Neutrophils # (Manual) (1.3-7.7) k/uL Lymphocytes # (Manual) (1.0-4.8) k/uL Metamyelocytes # (Man) (0) k/uL D-Dimer (<0.60) mg/L FEU ABG pH (7.35-7.45) ABG pCO2 (35-45) mmHg ABG pO2 (83-108) mmHg ABG HCO3 (21-25) mmol/L ABG Total CO2 (19-24) mmol/L ABG O2 Saturation (94-97) % Potassium 2.9 L (3.5-5.1) mmol/L Carbon Dioxide 31 H (22-30) mmol/L BUN 45 H (7-17) mg/dL Glucose 173 H (74-99) mg/dL POC Glucose (mg/dL) 176 H (75-99) mg/dL Magnesium 2.4 H (1.6-2.3) mg/dL Assessment and Plan Assessment: 1 Altered mental status secondary to suspected uremic encephalopathy. A bit more awake but still altered 2 Acute renal failure of unclear etiology requiring urgent hemodialysis 3 Urinary tract infection, cultures pending 4 CoVID 19 infection without significant pulmonary involvement at this time 5 Anion gap metabolic acidosis 6 Elevated LFTs 7 Elevated inflammatory markers 8 History of multiple sclerosis 9 History of urinary tract infections with Macrobid in the outpatient setting 10 Hypertension 11 Hyperlipidemia 12 Diabetes mellitus Plan: The patient was seen and evaluated Continue ceftriaxone, Decadron, Lovenox, Protonix Continue 0.9 normal saline at 75 ML's per hour No plans for hemodialysis today Nephrology is on the case We will continue to follow I, the cosigning physician, performed a history & physical examination of the patient. Lungs sounds are clear. Maintaining good O2 saturations in the 90s on 3 L/m per nasal cannula. I discussed the assessment and plan of care with my nurse practitioner, Neelam Smalls. I attest to the above note as dictated by her.
[2021-09-14] MEDS ORDERED: hydrALAZINE HCL 20 MG/ML 1 ML VIAL IV PRN (12:03)
[2021-09-14] MEDS: MORPHINE SULFATE 2 MG/ML SYRINGE IVP PRN ×3 (12:31→23:12)
[2021-09-14 12:36] LABS: Glucose,Whole Blood 186 mg/dL (75-99)
[2021-09-14] MEDS: HALOPERIDOL LACTATE 5 MG/ML 1 ML VIAL IVP PRN ×2 (18:44→23:13)
[2021-09-14 18:53] LABS: Glucose,Whole Blood 176 mg/dL (75-99)
[2021-09-14] MEDS ORDERED: HALOPERIDOL LACTATE 5 MG/ML 1 ML VIAL IVP ONE (19:22)
[2021-09-14] MEDS: hydrALAZINE HCL 20 MG/ML 1 ML VIAL IV PRN (20:22)
[2021-09-14 20:36] LABS: Glucose,Whole Blood 141 mg/dL (75-99)
[2021-09-14] MEDS: POTASSIUM CHLORIDE ER 20 MEQ TAB.ER PO SCH ×2 (20:42→22:02)
[2021-09-14] MEDS: QUEtiapine 50 MG TAB PO SCH (20:42)
[2021-09-15] MEDS ORDERED: LORazepam 2 MG/ML INJ IV STA (00:32)
[2021-09-15] MEDS: NOREPINEPHRINE 4 MG in SODIUM CHLORIDE 0.9% 250 ML IV SCH ×2 (01:05→14:48)
[2021-09-15] MEDS: MORPHINE SULFATE 2 MG/ML SYRINGE IVP PRN ×2 (04:23→20:10)
[2021-09-15] MEDS: HALOPERIDOL LACTATE 5 MG/ML 1 ML VIAL IVP PRN ×4 (04:23→19:47)
[2021-09-15] MEDS: hydrALAZINE HCL 20 MG/ML 1 ML VIAL IV PRN ×2 (05:04→19:47)
[2021-09-15] MEDS ORDERED: LABETALOL 5 MG/ML VIAL MDV IVP STA (06:13)
[2021-09-15] MEDS ORDERED: HALOPERIDOL LACTATE 5 MG/ML 1 ML VIAL IVP ONE (06:13)
[2021-09-15 06:28] LABS: Glucose,Whole Blood 157 mg/dL (75-99)
[2021-09-15] MEDS: INSULIN ASPART (NovoLOG) 100 UNIT/ML VIAL SQ SCH ×4 (06:34→20:40)
[2021-09-15 06:59] LABS: HCT 32.3 % (34.0-46.0); HGB 10.6 gm/dL (11.4-16.0); MCH 29.2 pg (25.0-35.0); MCHC 32.8 g/dL (31.0-37.0); MCV 88.9 fL (80.0-100.0); Mean Platelet Volume 7.5; Platelet Count 268 k/uL (150-450); RBC 3.63 m/uL (3.80-5.40); RDW 14.6 % (11.5-15.5)
[2021-09-15 07:24] LABS: African American GFR (CKD) >90 (>60 ml/min/1.73 sqM); Anion Gap 9 mmol/L; Blood Urea Nitrogen 47 mg/dL (7-17); Calcium 9.5 mg/dL (8.4-10.2); Carbon Dioxide 25 mmol/L (22-30); Chloride 109 mmol/L (98-107); Glucose 168 mg/dL (74-99); Non-African American GFR(CKD) >90 (>60 ml/min/1.73 sqM); Potassium 2.9 mmol/L (3.5-5.1); Sodium 143 mmol/L (137-145)
[2021-09-15] MEDS: PANTOPRAZOLE 40 MG/10 ML VIAL IVP SCH (07:49)
[2021-09-15] MEDS: ENOXAPARIN 30 MG/0.3 ML SYRINGE SQ SCH (07:49)
[2021-09-15] MEDS: QUEtiapine 50 MG TAB PO SCH ×2 (07:49→20:40)
[2021-09-15] MEDS: DEXAMETHASONE SOD PHOSPHATE 10 MG/ML 1 ML VIAL IVP SCH (07:49)
[2021-09-15 07:51] LABS: Band Neutrophils % 3 %; Lymphocytes # (M) 1.07 k/uL (1.0-4.8); Metamyelocytes # (M) 0.27 k/uL (0); Metamyelocytes % 2 %; Monocytes # (M) 1.34 k/uL (0-1.0); Myelocytes % 3 %; Neutrophils % (M) 76 %; Nucleated Red Blood Cells 1 /100 WBC (0-0); Total Cells Counted 200; WBC 13.4 k/uL (3.8-10.6)
[2021-09-15] MEDS: POTASSIUM CHLORIDE 10 MEQ in WATER FOR INJECTION 1 100ML.BAG IVPB SCH ×6 (08:40→16:05)
--- NOTE | 2021-09-15 08:45 | P.PN ---
Subjective Patient is seen in follow-up for acute kidney injury. Her second treatment of dialysis was on September 13. Creatinine 0.7. Nonoliguric. On room air. Off vasopressors. On normal saline. Vital signs are stable. Resting in bed. Tachycardic. No gross edema noted. Exam discussed with the nurse. Objective - Vital Signs Vital signs: Vital Signs Temp 99.5 F 09/15/21 08:00 Pulse 88 09/15/21 08:00 Resp 14 09/15/21 08:00 BP 165/94 09/15/21 08:00 Pulse Ox 97 09/15/21 08:00 Intake & Output 09/14/21 09/15/21 09/15/21 18:59 06:59 18:59 Intake Total 1400 975 200 Output Total 750 685 150 Balance 650 290 50 Weight 95.2 kg Intake: IV 1400 900 200 Dextrose 5% in Water 1, 200 000 ml @ 100 mls/hr IV . [id number] [facility] with Sodium Bicarb (1 Meq/ml) 150 ml Rx#:[id number] Potassium Chloride 10 meq 400 In Water For Injection 1 100ml.bag @ 100 mls/hr IVPB Q1H [facility] Rx#: [id number] Sodium Chloride 0.9% 1, 750 900 000 ml @ 75 mls/hr IV . [id number] [facility] Rx#:[id number] Sodium Chloride 0.9% 1, 150 000 ml @ 75 mls/hr IV . [id number] [facility] Rx#:[id number] cefTRIAXone 1 gm In 50 50 Sodium Chloride 0.9% 50 ml @ 100 mls/hr IVPB Q24HR [facility] Rx#:[id number] Intake, IV Titration 75 Amount Sodium Chloride 0.9% 1, 75 000 ml @ 75 mls/hr IV . [id number] [facility] Rx#:[id number] Output: Urine 750 685 150 Other: Voiding Method Indwelling Catheter Indwelling Catheter Indwelling Catheter - Labs CBC & Chem 7: 09/15/21 06:33 09/15/21 06:33 Labs: Abnormal Lab Results - Last 24 Hours (Table) 09/14/21 09/14/21 09/14/21 Range/Units 06:42 12:35 18:51 WBC (3.8-10.6) k/uL RBC (3.80-5.40) m/uL Hgb (11.4-16.0) gm/dL Hct (34.0-46.0) % Neutrophils # (Manual) 9.00 H (1.3-7.7) k/uL Lymphocytes # (Manual) 0.73 L (1.0-4.8) k/uL Monocytes # (Manual) (0-1.0) k/uL Metamyelocytes # (Man) 0.21 H (0) k/uL Myelocytes # (Manual) (0) k/uL Nucleated RBCs (0-0) /100 WBC Potassium (3.5-5.1) mmol/L Chloride (98-107) mmol/L BUN (7-17) mg/dL Glucose (74-99) mg/dL POC Glucose (mg/dL) 186 H 176 H (75-99) mg/dL 09/14/21 09/15/21 09/15/21 Range/Units 20:35 06:26 06:33 WBC 13.4 H (3.8-10.6) k/uL RBC 3.63 L (3.80-5.40) m/uL Hgb 10.6 L (11.4-16.0) gm/dL Hct 32.3 L (34.0-46.0) % Neutrophils # (Manual) 10.50 H (1.3-7.7) k/uL Lymphocytes # (Manual) (1.0-4.8) k/uL Monocytes # (Manual) 1.34 H (0-1.0) k/uL Metamyelocytes # (Man) 0.27 H (0) k/uL Myelocytes # (Manual) 0.40 H (0) k/uL Nucleated RBCs 1 H (0-0) /100 WBC Potassium (3.5-5.1) mmol/L Chloride (98-107) mmol/L BUN (7-17) mg/dL Glucose (74-99) mg/dL POC Glucose (mg/dL) 141 H 157 H (75-99) mg/dL 09/15/21 Range/Units 06:33 WBC (3.8-10.6) k/uL RBC (3.80-5.40) m/uL Hgb (11.4-16.0) gm/dL Hct (34.0-46.0) % Neutrophils # (Manual) (1.3-7.7) k/uL Lymphocytes # (Manual) (1.0-4.8) k/uL Monocytes # (Manual) (0-1.0) k/uL Metamyelocytes # (Man) (0) k/uL Myelocytes # (Manual) (0) k/uL Nucleated RBCs (0-0) /100 WBC Potassium 2.9 L (3.5-5.1) mmol/L Chloride 109 H (98-107) mmol/L BUN 47 H (7-17) mg/dL Glucose 168 H (74-99) mg/dL POC Glucose (mg/dL) (75-99) mg/dL Microbiology - Last 24 Hours (Table) 09/14/21 11:57 Urine Culture - Preliminary Urine,Catheterized Assessment and Plan Plan: Assessment: 1. Acute kidney injury secondary to ATN secondary to hypotension and nonste roidals. No hydronephrosis noted on CAT scan. She did receive IV contrast on September 12 for the CAT scan. Nonoliguric. Acidosis resolved. Creatinine stable at 0.9 today. 2. Hypokalemia from poor intake. Being replaced. 3. Metabolic acidosis secondary to acute kidney injury status post bicarb drip. Resolved. 4. Benign hypertension. 5. Toxic metabolic encephalopathy. Concern for uremia initially but no significant improvement post dialysis. 6. Acute hypoxic respiratory failure. 7. COVID-19 infection. Plan: Maintain IV fluids. Potassium being replaced. No further need for renal replacement therapy. Discontinue dialysis catheter. Vascular surgery will be notified. Discussed with the nurse. I will sign off.
[2021-09-15] MEDS: ENALAPRILAT 1.25 MG/ML 1 ML VIAL IVP PRN ×2 (10:33→16:53)
[2021-09-15 11:21] LABS: Glucose,Whole Blood 193 mg/dL (75-99)
[2021-09-15] MEDS: SODIUM CHLORIDE 0.9% 1,000 ML IV SCH (11:21)
--- NOTE | 2021-09-15 12:03 | P.PN ---
Subjective Progress Note Date: 09/15/21 Principal diagnosis: CC: Altered mental status The patient is a 55-year-old female with a PMH of hypertension, hyperlipidemia, type II DM, and multiple sclerosis and history of multiple UTIs was brought to the emergency room due to altered mental status. Patient was found to be in acute renal failure. She is admitted to the ICU for emergent dialysis. 09/15/2021: Patient mental status appears to be worse today compared to yesterday. She was started on Seroquel for her delirium Objective - Vital Signs Vital signs: Vital Signs Temp 100.0 F H 09/15/21 11:32 Pulse 98 09/15/21 11:00 Resp 30 H 09/15/21 11:00 BP 172/103 09/15/21 11:00 Pulse Ox 97 09/15/21 11:00 Intake & Output 09/14/21 09/15/21 09/15/21 18:59 06:59 18:59 Intake Total 1400 975 695 Output Total 750 685 350 Balance 650 290 345 Weight 95.2 kg Intake: IV 1400 900 695 Dextrose 5% in Water 1, 200 000 ml @ 100 mls/hr IV . [id number] [facility] with Sodium Bicarb (1 Meq/ml) 150 ml Rx#:[id number] Potassium Chloride 10 meq 400 300 In Water For Injection 1 100ml.bag @ 100 mls/hr IVPB Q1H [facility] Rx#: [id number] Sodium Chloride 0.9% 1, 750 900 000 ml @ 75 mls/hr IV . [id number] [facility] Rx#:[id number] Sodium Chloride 0.9% 1, 345 000 ml @ 75 mls/hr IV . [id number] [facility] Rx#:[id number] cefTRIAXone 1 gm In 50 50 Sodium Chloride 0.9% 50 ml @ 100 mls/hr IVPB Q24HR [facility] Rx#:[id number] Intake, IV Titration 75 Amount Sodium Chloride 0.9% 1, 75 000 ml @ 75 mls/hr IV . [id number] [facility] Rx#:[id number] Output: Urine 750 685 350 Other: Voiding Method Indwelling Catheter Indwelling Catheter Indwelling Catheter - Exam General examination - Alert and Oriented 0 Heart - + S1S2 no murmurs Lungs - diminished bilaterally Abdomen soft NT ND +ve BS Extremities - No edema [employer] - patient is not following any commands. She is moving all 4 extremities spontaneously Psych - delirious - Labs CBC & Chem 7: 09/15/21 06:33 09/15/21 06:33 Labs: Abnormal Lab Results - Last 24 Hours (Table) 09/14/21 09/14/21 09/14/21 Range/Units 12:35 18:51 20:35 WBC (3.8-10.6) k/uL RBC (3.80-5.40) m/uL Hgb (11.4-16.0) gm/dL Hct (34.0-46.0) % Neutrophils # (Manual) (1.3-7.7) k/uL Monocytes # (Manual) (0-1.0) k/uL Metamyelocytes # (Man) (0) k/uL Myelocytes # (Manual) (0) k/uL Nucleated RBCs (0-0) /100 WBC Potassium (3.5-5.1) mmol/L Chloride (98-107) mmol/L BUN (7-17) mg/dL Glucose (74-99) mg/dL POC Glucose (mg/dL) 186 H 176 H 141 H (75-99) mg/dL 09/15/21 09/15/21 09/15/21 Range/Units 06:26 06:33 06:33 WBC 13.4 H (3.8-10.6) k/uL RBC 3.63 L (3.80-5.40) m/uL Hgb 10.6 L (11.4-16.0) gm/dL Hct 32.3 L (34.0-46.0) % Neutrophils # (Manual) 10.50 H (1.3-7.7) k/uL Monocytes # (Manual) 1.34 H (0-1.0) k/uL Metamyelocytes # (Man) 0.27 H (0) k/uL Myelocytes # (Manual) 0.40 H (0) k/uL Nucleated RBCs 1 H (0-0) /100 WBC Potassium 2.9 L (3.5-5.1) mmol/L Chloride 109 H (98-107) mmol/L BUN 47 H (7-17) mg/dL Glucose 168 H (74-99) mg/dL POC Glucose (mg/dL) 157 H (75-99) mg/dL 09/15/21 Range/Units 11:19 WBC (3.8-10.6) k/uL RBC (3.80-5.40) m/uL Hgb (11.4-16.0) gm/dL Hct (34.0-46.0) % Neutrophils # (Manual) (1.3-7.7) k/uL Monocytes # (Manual) (0-1.0) k/uL Metamyelocytes # (Man) (0) k/uL Myelocytes # (Manual) (0) k/uL Nucleated RBCs (0-0) /100 WBC Potassium (3.5-5.1) mmol/L Chloride (98-107) mmol/L BUN (7-17) mg/dL Glucose (74-99) mg/dL POC Glucose (mg/dL) 193 H (75-99) mg/dL Microbiology - Last 24 Hours (Table) 09/14/21 11:57 Urine Culture - Preliminary Urine,Catheterized Assessment and Plan Assessment: Acute renal failure, with rhabdomyolysis Metabolic acidosis -Nephrology on board -Patient had hemodialysis on 09/12/2021 and 09/13/2021 -Per prior to this patient was complaining of back pain. Multiple myeloma workup in progress -Patient is also making urine output -Improving with dialysis -Nephrology on board UTI -Resume IV rocephine -follow up cultures COVID 19 -Decadron day 3 -Lovenox -Pulmonology on board Acute toxic metabolic encephalopathy secondary to above -Continue with above management -Patient still remains confused -Patient currently is in soft restraints. -IV Haldol when necessary for agitation. Patient also started on Seroquel -Her mentation has not improved much since admission Hypertension uncontrolled At this time unable to give oral medications because of her delirium Patient started on IV Vasotec and IV hydralazine when necessary Holding lisinopril and hydrochlorothiazide secondary to renal failure Chronic conditions: Type 2 DM, hyperlipidemia, multiple sclerosis -Insulin sliding scale and blood glucose monitoring -Monitor blood glucose -Hgb A1c is 6.9 DVT prophylaxis -Heparin subcu CODE STATUS:Full Code Discussed with: Anticipated discharge date: Undetermined Anticipated discharge place: Likely home
--- NOTE | 2021-09-15 12:48 | P.PN ---
Subjective Progress Note Date: 09/15/21 This is a 55-year-old female patient with a known history of multiple sclerosis, hypertension, hyperlipidemia, diabetes mellitus, frequent urinary tract infections and has Macrobid to be used as needed. She was brought into the emergency room yesterday with a history of initially insomnia was placed on m edication by her PCP. She was having issues with ongoing drowsiness the next morning and she had developed altered mental status. She was mumbling and moving her extremities but not seen anything meaningful according to her 's report from the emergency room. Computed tomography scan of the brain revealed no acute process. Computed tomography scan of the chest abdomen and pelvis revealed clear lungs. No significant abnormalities of the abdomen and pelvis. No excretion seen in the kidneys consistent with renal failure. She was found to be in acute renal failure with a presenting BUN of 99 and a creatinine of 10.6. Creatinine kinase 4046. Urinalysis positive for bacteria and blood. Positive coronavirus by PCR. Hepatitis screen nonreactive. LDH 1350. AST 223. ALT 125. White count 6.0. Hemoglobin 10.5. Leukocyte 0.9. An urgent right femoral temporary dialysis catheter was placed yesterday. She did receive hemodialysis and is planning for repeat dialysis again today. Nephrology is on the case. She had been awake but restless throughout the night. She received Ativan. She is seen in consultation today in the ICU. She is moaning. Moving all fours extremities. Not following commands. No purposeful movements. Her BUN is 71 with a creatinine of 5.26 today. She is on heparin for DVT prophylaxis. D5W with 3 A of bicarbonate 100 mL per hour. She is maintaining O2 saturations in the 90s on 3 L/m per nasal cannula. She did require a small amount of norepinephrine during dialysis. Currently off. The patient is seen today 09/14/2021 in follow-up in the intensive care unit. She is currently resting in bed. A bit more awake and alert today compared to yesterday. Still with some moaning's. Some incomprehensible sounds. She is maintaining good O2 saturations in the 90s on 3 L/m per nasal cannula. 0.9 normal saline at 75 ML's per hour. No plans for hemodialysis today. She is remaining on ceftriaxone for suspected UTI. Cultures pending. White count 10.4. Hemoglobin 10.4. Sodium 139. Potassium 2.9. Bicarb 31. Creatinine 0.90. Glucose 173. She remains on Decadron, Lovenox. The patient is seen today 09/15/2021 in follow-up in the intensive care unit. She is currently resting more comfortably in bed. She is maintaining good O2 saturations in the 90s on room air. She has 0.9 normal saline at 75 mL per hour. She is more alert. More cooperative. She is still requiring Haldol for agitation at times. She is still having some issues with hypertension. Medications are being adjusted. Temperature 100.0 axillary. Urine culture pending. White count 13.4. Hemoglobin 10.6. Platelets 268. Sodium 143. Potassium 2.9. Bicarb 25. BUN 47. Creatinine 0.70. Glucose 168. She remains on ceftriaxone. Continued on Decadron on the Lovenox. She's and Seroquel 50 mg twice a day. Hydralazine as needed. Objective - Vital Signs Vital signs: Vital Signs Temp 100.0 F H 09/15/21 11:32 Pulse 98 09/15/21 11:00 Resp 30 H 09/15/21 11:00 BP 172/103 09/15/21 11:00 Pulse Ox 97 09/15/21 11:00 Intake & Output 09/14/21 09/15/21 09/15/21 18:59 06:59 18:59 Intake Total 1400 975 695 Output Total 750 685 350 Balance 650 290 345 Weight 95.2 kg Intake: IV 1400 900 695 Dextrose 5% in Water 1, 200 000 ml @ 100 mls/hr IV . [id number] [facility] with Sodium Bicarb (1 Meq/ml) 150 ml Rx#:[id number] Potassium Chloride 10 meq 400 300 In Water For Injection 1 100ml.bag @ 100 mls/hr IVPB Q1H [facility] Rx#: [id number] Sodium Chloride 0.9% 1, 750 900 000 ml @ 75 mls/hr IV . [id number] [facility] Rx#:[id number] Sodium Chloride 0.9% 1, 345 000 ml @ 75 mls/hr IV . [id number] [facility] Rx#:[id number] cefTRIAXone 1 gm In 50 50 Sodium Chloride 0.9% 50 ml @ 100 mls/hr IVPB Q24HR [facility] Rx#:[id number] Intake, IV Titration 75 Amount Sodium Chloride 0.9% 1, 75 000 ml @ 75 mls/hr IV . [id number] [facility] Rx#:[id number] Output: Urine 750 685 350 Other: Voiding Method Indwelling Catheter Indwelling Catheter Indwelling Catheter - Exam GENERAL EXAM: Awake, altered 55-year-old female patient, on room air, appears in no acute distress. HEAD: Normocephalic. EYES: Normal reaction of pupils, equal size. NOSE: Clear with pink turbinates. THROAT: No erythema or exudates. NECK: No masses, no JVD. CHEST: No chest wall deformity. LUNGS: Equal air entry with no crackles, wheeze, rhonchi or dullness. CVS: S1 and S2 normal with no audible murmur, regular rhythm. ABDOMEN: No hepatosplenomegaly, normal bowel sounds, no guarding or rigidity. SPINE: No scoliosis or deformity SKIN: No rashes CENTRAL NERVOUS SYSTEM: No focal deficits, tone is normal in all 4 extremities. EXTREMITIES: Right femoral temporary dialysis catheter in place. There is no peripheral edema. No clubbing, no cyanosis. Peripheral pulses are intact. - Labs CBC & Chem 7: 09/15/21 06:33 09/15/21 06:33 Labs: Abnormal Lab Results - Last 24 Hours (Table) 09/14/21 09/14/21 09/15/21 Range/Units 18:51 20:35 06:26 WBC (3.8-10.6) k/uL RBC (3.80-5.40) m/uL Hgb (11.4-16.0) gm/dL Hct (34.0-46.0) % Neutrophils # (Manual) (1.3-7.7) k/uL Monocytes # (Manual) (0-1.0) k/uL Metamyelocytes # (Man) (0) k/uL Myelocytes # (Manual) (0) k/uL Nucleated RBCs (0-0) /100 WBC Potassium (3.5-5.1) mmol/L Chloride (98-107) mmol/L BUN (7-17) mg/dL Glucose (74-99) mg/dL POC Glucose (mg/dL) 176 H 141 H 157 H (75-99) mg/dL 0109/15/21 09/15/21 Range/Units 06:33 06:33 11:19 WBC 13.4 H (3.8-10.6) k/uL RBC 3.63 L (3.80-5.40) m/uL Hgb 10.6 L (11.4-16.0) gm/dL Hct 32.3 L (34.0-46.0) % Neutrophils # (Manual) 10.50 H (1.3-7.7) k/uL Monocytes # (Manual) 1.34 H (0-1.0) k/uL Metamyelocytes # (Man) 0.27 H (0) k/uL Myelocytes # (Manual) 0.40 H (0) k/uL Nucleated RBCs 1 H (0-0) /100 WBC Potassium 2.9 L (3.5-5.1) mmol/L Chloride 109 H (98-107) mmol/L BUN 47 H (7-17) mg/dL Glucose 168 H (74-99) mg/dL POC Glucose (mg/dL) 193 H (75-99) mg/dL Microbiology - Last 24 Hours (Table) 09/14/21 11:57 Urine Culture - Preliminary Urine,Catheterized Assessment and Plan Assessment: 1 Altered mental status secondary to suspected uremic encephalopathy. A bit more awake but still altered and restless at times 2 Acute renal failure of unclear etiology requiring urgent hemodialysis, recovered with a creatinine of 0.70. GFR greater than 90. BUN 47 3 Urinary tract infection, cultures pending 4 CoVID 19 infection without significant pulmonary involvement at this time 5 Anion gap metabolic acidosis, recovered 6 Elevated LFTs, trending down 7 Elevated inflammatory markers 8 History of multiple sclerosis 9 History of urinary tract infections with Macrobid in the outpatient setting 10 Hypertension 11 Hyperlipidemia 12 Diabetes mellitus Plan: The patient was seen and evaluated Continue ceftriaxone, Decadron, Lovenox, Protonix Continue 0.9 normal saline at 75 ML's per hour Continue IV hydralazine, add IV Vasotec Haldol as needed Seroquel increased May transfer out of the ICU later today We will continue to follow I, the cosigning physician, performed a history & physical examination of the patient. Lungs sounds are clear. Maintaining good O2 saturations in the 90s on room air. I discussed the assessment and plan of care with my nurse practitioner, Neelam Smalls. I attest to the above note as dictated by her.
[2021-09-15 18:13] LABS: Glucose,Whole Blood 179 mg/dL (75-99)
[2021-09-15 20:25] LABS: Glucose,Whole Blood 151 mg/dL (75-99)
[2021-09-16] MEDS: SODIUM CHLORIDE 0.9% 1,000 ML IV SCH (02:48)
[2021-09-16] MEDS: POTASSIUM CHLORIDE ER 20 MEQ TAB.ER PO SCH ×2 (03:47→05:21)
[2021-09-16 06:15] LABS: Glucose,Whole Blood 146 mg/dL (75-99)
[2021-09-16 06:17] LABS: Glucose,Whole Blood 155 mg/dL (75-99)
[2021-09-16] MEDS: INSULIN ASPART (NovoLOG) 100 UNIT/ML VIAL SQ SCH ×4 (06:19→20:49)
[2021-09-16] MEDS: PANTOPRAZOLE 40 MG/10 ML VIAL IVP SCH (08:59)
[2021-09-16] MEDS: DEXAMETHASONE SOD PHOSPHATE 10 MG/ML 1 ML VIAL IVP SCH (08:59)
[2021-09-16] MEDS: ENOXAPARIN 40 MG/0.4 ML SYRINGE SQ SCH (09:00)
[2021-09-16] MEDS: QUEtiapine 50 MG TAB PO SCH ×2 (09:00→20:49)
[2021-09-16 10:58] LABS: African American GFR (CKD) >90 (>60 ml/min/1.73 sqM); Anion Gap 6 mmol/L; Blood Urea Nitrogen 39 mg/dL (7-17); Calcium 9.5 mg/dL (8.4-10.2); Carbon Dioxide 24 mmol/L (22-30); Chloride 120 mmol/L (98-107); Glucose 157 mg/dL (74-99); Non-African American GFR(CKD) >90 (>60 ml/min/1.73 sqM); Potassium 3.3 mmol/L (3.5-5.1); Sodium 150 mmol/L (137-145)
[2021-09-16] MEDS ORDERED: POTASSIUM CHLORIDE 20 MEQ in WATER FOR INJECTION 1 100ML.BAG IVPB STA (11:03)
[2021-09-16 11:13] LABS: HCT 33.2 % (34.0-46.0); HGB 10.6 gm/dL (11.4-16.0); MCH 29.1 pg (25.0-35.0); MCV 90.9 fL (80.0-100.0); Mean Platelet Volume 7.3; Platelet Count 259 k/uL (150-450); RBC 3.65 m/uL (3.80-5.40); RDW 14.9 % (11.5-15.5); WBC 17.2 k/uL (3.8-10.6)
[2021-09-16] MEDS ORDERED: DEXTROSE 5%-0.2% NACL 1,000 ML IV SCH (11:15)
--- NOTE | 2021-09-16 11:20 | P.PN ---
Subjective Progress Note Date: 09/16/21 Principal diagnosis: CC: Altered mental status The patient is a 55-year-old female with a PMH of hypertension, hyperlipidemia, type II DM, and multiple sclerosis and history of multiple UTIs was brought to the emergency room due to altered mental status. Patient was found to be in acute renal failure. She was admitted to the ICU for emergent dialysis. Patient's renal function has improved however patient still remains delirious Patient is seen today. She still remains delirious. She is able to tell me her name. She is following some simple commands which is an improvement from yesterday. Objective - Vital Signs Vital signs: Vital Signs Temp 98.9 F 09/16/21 08:00 Pulse 83 09/16/21 08:00 Resp 24 09/16/21 08:00 BP 140/86 09/16/21 08:00 Pulse Ox 96 09/16/21 08:00 Intake & Output 09/15/21 09/16/21 09/16/21 18:59 06:59 18:59 Intake Total 1470 150 Output Total 855 750 Balance 615 -600 Intake: IV 1470 150 Potassium Chloride 10 meq 500 In Water For Injection 1 100ml.bag @ 100 mls/hr IVPB Q1H PEDRO Rx#: [id number] Sodium Chloride 0.9% 1, 820 150 000 ml @ 75 mls/hr IV . 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 She is moving all 4 extremities spontaneously Psych - delirious - Labs CBC & Chem 7: 09/15/21 06:33 09/16/21 09:43 Labs: Abnormal Lab Results - Last 24 Hours (Table) 09/15/21 09/15/21 09/15/21 Range/Units 11:19 18:11 19:48 Sodium (137-145) mmol/L Potassium 3.4 L (3.5-5.1) mmol/L Chloride (98-107) mmol/L BUN (7-17) mg/dL Glucose (74-99) mg/dL POC Glucose (mg/dL) 193 H 179 H (75-99) mg/dL 09/15/21 09/16/21 09/16/21 Range/Units 20:24 06:14 06:16 Sodium (137-145) mmol/L Potassium (3.5-5.1) mmol/L Chloride (98-107) mmol/L BUN (7-17) mg/dL Glucose (74-99) mg/dL POC Glucose (mg/dL) 151 H 146 H 155 H (75-99) mg/dL 09/16/21 Range/Units 09:43 Sodium 150 H (137-145) mmol/L Potassium 3.3 L (3.5-5.1) mmol/L Chloride 120 H (98-107) mmol/L BUN 39 H (7-17) mg/dL Glucose 157 H (74-99) mg/dL POC Glucose (mg/dL) (75-99) mg/dL Microbiology - Last 24 Hours (Table) 09/14/21 11:57 Urine Culture - Final Urine,Catheterized Assessment and Plan Assessment: Acute toxic metabolic encephalopathy likely due to acute renal failure with urem ia versus possible Covid encephalopathy -Patient's uremia has resolved and she still remains delirious. I believe we need to give patient more time for mental status to improve from uremia -Dragline Engineer has consulted neurology. EEG and CT head have been ordered by dedicated regional driver as well -IV Haldol when necessary. Seroquel twice a day -Keep patient nothing by mouth until mental status improves -Patient transferred out of ICU on 09/15/2021 -Patient's urine culture is negative so UTI has been ruled out as cause for her encephalopathy -Leukocytosis likely due to steroids -Today patient was able to follow commands for me and is also able to tell me her name which is an improvement from yesterday. However patient is waxing and waning. Hyponatremia likely iatrogenic due to IV fluids -Discontinue normal saline. We'll start patient on D5 W at 75 mL an hour -Trend BMP Acute renal failure, with rhabdomyolysis Metabolic acidosis -Patient had hemodialysis on 09/12/2021 and 09/13/2021 -Renal function has improved. Per nephrology no more further need for dialysis and have signed off -Per prior to this patient was complaining of back pain. Multiple myeloma workup in progress COVID 19 -Decadron day 5 -Lovenox -Pulmonology on board UTI? -Urine culture is negative so discontinue IV Rocephin Hypertension uncontrolled At this time unable to give oral medications because of her delirium Patient started on IV Vasotec and IV hydralazine when necessary Holding lisinopril and hydrochlorothiazide secondary to renal failure Chronic conditions: Type 2 DM, hyperlipidemia, multiple sclerosis -Insulin sliding scale and blood glucose monitoring -Monitor blood glucose -Hgb A1c is 6.9 DVT prophylaxis -Heparin subcu CODE STATUS:Full Code Discussed with: Anticipated discharge date: Undetermined Anticipated discharge place: Likely home
[2021-09-16 11:33] LABS: Glucose,Whole Blood 143 mg/dL (75-99)
[2021-09-16 12:06] LABS: Band Neutrophils % 4 %; Lymphocytes # (M) 1.03 k/uL (1.0-4.8); Metamyelocytes # (M) 0.69 k/uL (0); Metamyelocytes % 4 %; Monocytes # (M) 0.52 k/uL (0-1.0); Myelocytes # (M) 0.69 k/uL (0); Myelocytes % 4 %; Neutrophils % (M) 80 %; Nucleated Red Blood Cells 0 /100 WBC (0-0); Total Cells Counted 200
[2021-09-16 12:07] LABS: Anisocytosis (M) Present; Poikilocytosis (M) Present; Polychromasia Present
--- NOTE | 2021-09-16 12:12 | P.CNNES ---
History of Present Illness Consult date: 09/16/21 Requesting physician: Mariann Chopra Reason for Consult: altered mental status History of Present Illness: This is a 55-year-old woman with medical history of multiple sclerosis, diabetes mellitus, hypertension, hyperlipidemia, recurrent urinary tract infection who presented emergency department on 09/12/2021 for altered mental status. Neurology is consulted for altered mental status. History [facility]. It seems that the patient has history of insomnia and was placed on Ambien by her primary care physician and the patient started to have ongoing drowsiness the next morning continued to have altered mental status. Per the EMR note the patient was mumbling and the was not saying anything meaningful. Per the patient's nurse the patient was alert oriented times of for prior to all this and currently she is only oriented 1. Per nurse no seizure-like activity noted. It is suspected that the patient's had uremic encephalopathy. The patient was requiring urgent hemodialysis during her hospital stay. Her Covid 19 PCR was positive without significant pulmonary involvement. Nephrology and pulmonary team is on board. Some of the workup in the hospital consisted of: Her initial white blood cells 4.3 and the most current one is 7.2 thousand. It's predominantly neutrophilic. Sodium initially is 135 and most recent one is 150 Creatinine on presentation is 10.69 and most recent one is up 0.76. Calcium most recent is 9.5. Phosphorus is 7.2 and minimal the last one on 09/14/2021 is 3.1. AST is 279 and the most recent one on 09/13/2021 is 223 ALT is 144 on initial presentation and on 09/13/2021 is 125 and there is no repeated the function test. CK level is 4846 Sánchez virus PCR on 09/12/2021 is detected. Hepatitis be antigen and antibody was nonreactive. Urine culture is no growth and that was on 09/14/2021. CT of the head on 09/12/2021 is reported as no acute process. I personally reviewed it and I agree with the report. Review of Systems Review of system is limited with apparent positive and negative as per HPI. Past Medical History Additional Past Medical History / Comment(s): MS History of Any Multi-Drug Resistant Organisms: None Reported Past Surgical History: No Surgical Hx Reported Past Psychological History: No Psychological Hx Reported Smoking Status: Never smoker Past Alcohol Use History: None Reported Past Drug Use History: None Reported - Past Family History Father Family Medical History: Unable to Obtain (Due to patient's altered mental status) Medications and Allergies Home Medications Medication Instructions Recorded Confirmed Type Cyclobenzaprine [Flexeril] 10 mg PO HS PRN 09/12/21 09/12/21 History DULoxetine HCL [Cymbalta] 60 mg PO BID 09/12/21 09/12/21 History Dextroamphetamine/Amphetamine 10 mg PO DIRECTED 09/12/21 09/12/21 History [Adderall] Dextroamphetamine/Amphetamine 30 mg PO DIRECTED 09/12/21 09/12/21 History [Adderall] Enalapril [Vasotec] 20 mg PO DAILY 09/12/21 09/12/21 History Estrogens, Conjugated Cream 1 applicator VAGINAL DIRECTED 09/12/21 09/12/21 History [Premarin Vaginal Cream] PRN LORazepam [Ativan] 0.5 mg PO TID 09/12/21 09/12/21 History Meloxicam 15 mg PO DAILY PRN 09/12/21 09/12/21 History Nitrofurantoin Monohyd/M-Cryst 100 mg PO DAILY PRN 09/12/21 09/12/21 History [Macrobid] Simvastatin [Zocor] 20 mg PO HS 09/12/21 09/12/21 History Zolpidem [Ambien] 10 mg PO HS 09/12/21 09/12/21 History hydroCHLOROthiazide [Hydrodiuril] 25 mg PO DAILY 09/12/21 09/12/21 History metFORMIN HCL 500 mg PO AC-BID 09/12/21 09/12/21 History rOPINIRole HCL [Requip] 1 mg PO HS 09/12/21 09/12/21 History Glatiramer Acetate [Copaxone] 40 mg SQ MOWEFR 09/13/21 09/13/21 History Allergies Allergy/AdvReac Type Severity Reaction Status Date / Time No Known Allergies Allergy Verified 09/12/21 18:08 Physical Examination - Vital Signs Vital Signs: Vital Signs Temp Pulse Pulse Resp BP BP Pulse Ox 09/16/21 08:00 98.9 F 83 24 140/86 96 09/16/21 04:00 98 22 165/88 09/16/21 00:00 98.7 F 101 H 20 167/79 95 09/15/21 20:57 102 H 165/90 97 09/15/21 20:00 99.0 F 101 H 21 171/101 98 09/15/21 19:00 105 H 22 149/73 96 09/15/21 18:00 92 16 155/82 96 09/15/21 17:00 98 12 178/94 98 09/15/21 16:00 99.1 F 91 21 164/106 97 09/15/21 15:00 69 14 160/83 97 09/15/21 14:00 95 24 148/63 97 09/15/21 13:00 79 11 L 162/84 98 09/15/21 12:00 85 16 169/83 96 09/15/21 11:32 100.0 F H Intake and Output 09/15/21 09/16/21 09/16/21 22:59 06:59 14:59 Intake Total 630 Output Total 430 625 Balance 200 -625 Intake: IV 630 Potassium Chloride 10 meq 100 In Water For Injection 1 100ml.bag @ 100 mls/hr IVPB Q1H PEDRO Rx#: [id number] Sodium Chloride 0.9% 1, 430 000 ml @ 75 mls/hr IV . [id number] PEDRO Rx#:[id number] cefTRIAXone 1 gm In 100 Sodium Chloride 0.9% 50 ml @ 100 mls/hr IVPB Q24HR PEDRO Rx#:[id number] Output: Urine 430 625 Other: Voiding Method Indwelling Catheter Indwelling Catheter Indwelling Catheter # Bowel Movements 2 GENERAL: The patient is lying in bed and does not seem in acute distress. CHEST: The heart rate is regular rate rhythm. No murmurs to auscultation. LUNG: Clear to auscultation bilaterally no wheezing noted throughout. Not labored breathing. ABDOMEN/GI: Bowel sounds present in all 4 quadrants. No tenderness to palpation throughout. NEUROLOGICAL: Higher mental function: The patient is severely drowsy but is awakeable to voice. Is oriented to only self. Is not responding to place or time. She is following few simple commands (sticking tongue out and lifting extremities). Hard to assess language. No neglect noted. Cranial nerves: The pupils are round, equal and reactive to light. Visual mosquera could not assess because of cooperation. Extraocular movement is intact on looking to right and left and no nystagmus is noted. ?right facial weakness. Has mild dyarthria. Tongue is midline and moved [id number] without any difficulty. Motor: Gait is deferred. The strength is hard to assess individual muscles but is lifting all extremities above gravity. Normal tone and bulk. Cerebellum: Normal finger to nose bilaterally. Sensation: Could not assess. Reflexes (right/left): 2+ throughout. Plantars are upgoing bilaterally. Results - Laboratory Findings CBC and BMP: 09/16/21 09:43 09/16/21 09:43 Abnormal Lab Findings: Abnormal Labs 09/12/21 09/12/21 09/12/21 18:04 18:04 18:04 WBC 12.3 H RBC Hgb Hct Neutrophils # (Manual) 11.00 H Lymphocytes # (Manual) 0.49 L Monocytes # (Manual) Metamyelocytes # (Man) Myelocytes # (Manual) Nucleated RBCs D-Dimer ABG pH ABG pCO2 ABG pO2 ABG HCO3 ABG Total CO2 ABG O2 Saturation Sodium 135 L Potassium Chloride 95 L Carbon Dioxide 9 L* BUN 99 H Creatinine 10.69 H* Glucose 140 H POC Glucose (mg/dL) Hemoglobin A1c Calcium Phosphorus Magnesium 2.9 H AST 279 H ALT 144 H Lactate Dehydrogenase Creatine Kinase Total Protein Total Protein (PEP) Albumin Urine Appearance Turbid H Urine Protein 2+ H Urine Glucose (UA) Trace H Urine Blood Small H Ur Leukocyte Esterase Small H Urine WBC 6 H Ur Squamous Epith Cells 29 H Urine Bacteria Moderate H Urine Mucus Rare H Coronavirus (PCR) 09/12/21 09/12/21 09/12/21 18:04 21:04 23:33 WBC RBC Hgb Hct Neutrophils # (Manual) Lymphocytes # (Manual) Monocytes # (Manual) Metamyelocytes # (Man) Myelocytes # (Manual) Nucleated RBCs D-Dimer ABG pH ABG pCO2 ABG pO2 ABG HCO3 ABG Total CO2 ABG O2 Saturation Sodium Potassium Chloride Carbon Dioxide BUN Creatinine Glucose POC Glucose (mg/dL) 136 H Hemoglobin A1c Calcium Phosphorus Magnesium AST ALT Lactate Dehydrogenase Creatine Kinase 4846 H* Total Protein Total Protein (PEP) Albumin Urine Appearance Urine Protein Urine Glucose (UA) Urine Blood Ur Leukocyte Esterase Urine WBC Ur Squamous Epith Cells Urine Bacteria Urine Mucus Coronavirus (PCR) Detected A 09/13/21 09/13/21 09/13/21 01:47 01:47 05:54 WBC RBC Hgb Hct Neutrophils # (Manual) Lymphocytes # (Manual) Monocytes # (Manual) Metamyelocytes # (Man) Myelocytes # (Manual) Nucleated RBCs D-Dimer ABG pH ABG pCO2 ABG pO2 ABG HCO3 ABG Total CO2 ABG O2 Saturation Sodium Potassium Chloride Carbon Dioxide BUN Creatinine Glucose POC Glucose (mg/dL) 154 H Hemoglobin A1c Calcium Phosphorus Magnesium AST ALT Lactate Dehydrogenase 1350 H Creatine Kinase Total Protein Total Protein (PEP) 5.5 L Albumin Urine Appearance Urine Protein Urine Glucose (UA) Urine Blood Ur Leukocyte Esterase Urine WBC Ur Squamous Epith Cells Urine Bacteria Urine Mucus Coronavirus (PCR) 09/13/21 09/13/21 09/13/21 06:06 06:06 06:06 WBC RBC 3.59 L Hgb 10.5 L Hct 32.3 L Neutrophils # (Manual) Lymphocytes # (Manual) 0.90 L Monocytes # (Manual) Metamyelocytes # (Man) 0.12 H Myelocytes # (Manual) 0.12 H Nucleated RBCs D-Dimer ABG pH ABG pCO2 ABG pO2 ABG HCO3 ABG Total CO2 ABG O2 Saturation Sodium Potassium 3.3 L Chloride Carbon Dioxide 15 L BUN 71 H Creatinine 5.26 H Glucose 143 H POC Glucose (mg/dL) Hemoglobin A1c 6.9 H Calcium 8.1 L Phosphorus 7.2 H Magnesium 2.5 H AST 223 H ALT 125 H Lactate Dehydrogenase Creatine Kinase Total Protein 5.5 L Total Protein (PEP) Albumin 3.0 L Urine Appearance Urine Protein Urine Glucose (UA) Urine Blood Ur Leukocyte Esterase Urine WBC Ur Squamous Epith Cells Urine Bacteria Urine Mucus Coronavirus (PCR) 09/13/21 09/13/21 09/13/21 10:57 12:02 17:20 WBC RBC Hgb Hct Neutrophils # (Manual) Lymphocytes # (Manual) Monocytes # (Manual) Metamyelocytes # (Man) Myelocytes # (Manual) Nucleated RBCs D-Dimer 6.43 H ABG pH ABG pCO2 ABG pO2 ABG HCO3 ABG Total CO2 ABG O2 Saturation Sodium Potassium Chloride Carbon Dioxide BUN Creatinine Glucose POC Glucose (mg/dL) 146 H 187 H Hemoglobin A1c Calcium Phosphorus Magnesium AST ALT Lactate Dehydrogenase Creatine Kinase Total Protein Total Protein (PEP) Albumin Urine Appearance Urine Protein Urine Glucose (UA) Urine Blood Ur Leukocyte Esterase Urine WBC Ur Squamous Epith Cells Urine Bacteria Urine Mucus Coronavirus (PCR) 09/13/21 09/13/2109/14/22 17:53 21:09 06:42 WBC RBC 3.52 L Hgb 10.4 L Hct 31.4 L Neutrophils # (Manual) 9.00 H Lymphocytes # (Manual) 0.73 L Monocytes # (Manual) Metamyelocytes # (Man) 0.21 H Myelocytes # (Manual) Nucleated RBCs D-Dimer ABG pH 7.33 L ABG pCO2 50 H ABG pO2 280 H ABG HCO3 26 H ABG Total CO2 28 H ABG O2 Saturation 100.0 H Sodium Potassium Chloride Carbon Dioxide BUN Creatinine Glucose POC Glucose (mg/dL) 173 H Hemoglobin A1c Calcium Phosphorus Magnesium AST ALT Lactate Dehydrogenase Creatine Kinase Total Protein Total Protein (PEP) Albumin Urine Appearance Urine Protein Urine Glucose (UA) Urine Blood Ur Leukocyte Esterase Urine WBC Ur Squamous Epith Cells Urine Bacteria Urine Mucus Coronavirus (PCR) 09/14/21 09/14/21 09/14/21 06:42 06:51 12:35 WBC RBC Hgb Hct Neutrophils # (Manual) Lymphocytes # (Manual) Monocytes # (Manual) Metamyelocytes # (Man) Myelocytes # (Manual) Nucleated RBCs D-Dimer ABG pH ABG pCO2 ABG pO2 ABG HCO3 ABG Total CO2 ABG O2 Saturation Sodium Potassium 2.9 L Chloride Carbon Dioxide 31 H BUN 45 H Creatinine Glucose 173 H POC Glucose (mg/dL) 176 H 186 H Hemoglobin A1c Calcium Phosphorus Magnesium 2.4 H AST ALT Lactate Dehydrogenase Creatine Kinase Total Protein Total Protein (PEP) Albumin Urine Appearance Urine Protein Urine Glucose (UA) Urine Blood Ur Leukocyte Esterase Urine WBC Ur Squamous Epith Cells Urine Bacteria Urine Mucus Coronavirus (PCR) 09/14/21 09/14/21 09/15/21 18:51 20:35 06:26 WBC RBC Hgb Hct Neutrophils # (Manual) Lymphocytes # (Manual) Monocytes # (Manual) Metamyelocytes # (Man) Myelocytes # (Manual) Nucleated RBCs D-Dimer ABG pH ABG pCO2 ABG pO2 ABG HCO3 ABG Total CO2 ABG O2 Saturation Sodium Potassium Chloride Carbon Dioxide BUN Creatinine Glucose POC Glucose (mg/dL) 176 H 141 H 157 H Hemoglobin A1c Calcium Phosphorus Magnesium AST ALT Lactate Dehydrogenase Creatine Kinase Total Protein Total Protein (PEP) Albumin Urine Appearance Urine Protein Urine Glucose (UA) Urine Blood Ur Leukocyte Esterase Urine WBC Ur Squamous Epith Cells Urine Bacteria Urine Mucus Coronavirus (PCR) 01/09/15/21 09/15/21 06:33 06:33 11:19 WBC 13.4 H RBC 3.63 L Hgb 10.6 L Hct 32.3 L Neutrophils # (Manual) 10.50 H Lymphocytes # (Manual) Monocytes # (Manual) 1.34 H Metamyelocytes # (Man) 0.27 H Myelocytes # (Manual) 0.40 H Nucleated RBCs 1 H D-Dimer ABG pH ABG pCO2 ABG pO2 ABG HCO3 ABG Total CO2 ABG O2 Saturation Sodium Potassium 2.9 L Chloride 109 H Carbon Dioxide BUN 47 H Creatinine Glucose 168 H POC Glucose (mg/dL) 193 H Hemoglobin A1c Calcium Phosphorus Magnesium AST ALT Lactate Dehydrogenase Creatine Kinase Total Protein Total Protein (PEP) Albumin Urine Appearance Urine Protein Urine Glucose (UA) Urine Blood Ur Leukocyte Esterase Urine WBC Ur Squamous Epith Cells Urine Bacteria Urine Mucus Coronavirus (PCR) 09/15/21 09/15/21 09/15/21 18:11 19:48 20:24 WBC RBC Hgb Hct Neutrophils # (Manual) Lymphocytes # (Manual) Monocytes # (Manual) Metamyelocytes # (Man) Myelocytes # (Manual) Nucleated RBCs D-Dimer ABG pH ABG pCO2 ABG pO2 ABG HCO3 ABG Total CO2 ABG O2 Saturation Sodium Potassium 3.4 L Chloride Carbon Dioxide BUN Creatinine Glucose POC Glucose (mg/dL) 179 H 151 H Hemoglobin A1c Calcium Phosphorus Magnesium AST ALT Lactate Dehydrogenase Creatine Kinase Total Protein Total Protein (PEP) Albumin Urine Appearance Urine Protein Urine Glucose (UA) Urine Blood Ur Leukocyte Esterase Urine WBC Ur Squamous Epith Cells Urine Bacteria Urine Mucus Coronavirus (PCR) 09/16/21 09/16/21 09/16/21 06:14 06:16 09:43 WBC 17.2 H RBC 3.65 L Hgb 10.6 L Hct 33.2 L Neutrophils # (Manual) Lymphocytes # (Manual) Monocytes # (Manual) Metamyelocytes # (Man) Myelocytes # (Manual) Nucleated RBCs D-Dimer ABG pH ABG pCO2 ABG pO2 ABG HCO3 ABG Total CO2 ABG O2 Saturation Sodium Potassium Chloride Carbon Dioxide BUN Creatinine Glucose POC Glucose (mg/dL) 146 H 155 H Hemoglobin A1c Calcium Phosphorus Magnesium AST ALT Lactate Dehydrogenase Creatine Kinase Total Protein Total Protein (PEP) Albumin Urine Appearance Urine Protein Urine Glucose (UA) Urine Blood Ur Leukocyte Esterase Urine WBC Ur Squamous Epith Cells Urine Bacteria Urine Mucus Coronavirus (PCR) 09/16/21 09:43 WBC RBC Hgb Hct Neutrophils # (Manual) Lymphocytes # (Manual) Monocytes # (Manual) Metamyelocytes # (Man) Myelocytes # (Manual) Nucleated RBCs D-Dimer ABG pH ABG pCO2 ABG pO2 ABG HCO3 ABG Total CO2 ABG O2 Saturation Sodium 150 H Potassium 3.3 L Chloride 120 H Carbon Dioxide BUN 39 H Creatinine Glucose 157 H POC Glucose (mg/dL) Hemoglobin A1c Calcium Phosphorus Magnesium AST ALT Lactate Dehydrogenase Creatine Kinase Total Protein Total Protein (PEP) Albumin Urine Appearance Urine Protein Urine Glucose (UA) Urine Blood Ur Leukocyte Esterase Urine WBC Ur Squamous Epith Cells Urine Bacteria Urine Mucus Coronavirus (PCR) Assessment and Plan Assessment: Altered mental status seems due to uremic encephalopathy and metabolic encephalopathy. Also component of encephalopathy from COVID-19. Acute renal failure with rhabdomyolysis on hemodialysis--resolved Elevated liver function test Acute COVID-19 infection hypernatremia--most recent is 150 Hypertension and continues to be elevated History of multiple sclerosis Diabetes mellitus and most recent hemoglobin A1c 6.9 Hyperlipidemia History of urinary tract infection Plan: I ordered a repeat CT of the head, AST, ALT and I ordered ammonia level. I ordered a routine EEG. I'll not start the patient on an antiepileptic drug unless there is epileptiform discharges or seizure on the EEG. Every 4 hours neuro checks Will consider MRI Brain and possible lumbar puncture down the line. Please avoid sedations, opiates or any medications that will affect patient mentation. Pulmonary team is on board Nephrology team is on board We'll defer the lateral electrolyte imbalance management to the nephrology team We'll defer the rest of medical management to primary team The plan is discussed with the patient's nurse. Thank you for the consultation. Lakhwinder Weems M.D. Neuro-Hospitalist Time with Patient: Greater than 30
[2021-09-16] MEDS: hydrALAZINE HCL 20 MG/ML 1 ML VIAL IV PRN ×2 (12:22→16:36)
[2021-09-16 12:40] LABS: ALT 71 U/L (4-34); AST 60 U/L (14-36); Creatine Kinase 94 U/L (30-135)
--- NOTE | 2021-09-16 14:13 | CT ---
EXAMINATION TYPE: CT brain wo con DATE OF EXAM: 09/16/2021 HISTORY: Altered mental status. CT DLP: 2428 mGycm. Automated Exposure Control for Dose Reduction was Utilized. TECHNIQUE: CT scan of the head is performed without contrast. COMPARISON: CT Brain Without 4 days ago. FINDINGS: There is no acute intracranial hemorrhage or midline shift identified. There is mild to m oderate diffuse sulcal prominence greatest over bilateral frontal lobes redemonstrated. Mild ventricu lar prominence redemonstrated There is mild low-attenuation in the periventricular white matter consi stent with chronic small vessel ischemic change redemonstrated. Some opacification of the left ethmoi d air cells again seen. Remainder of sinuses are clear and the globes are intact bilaterally. IMPRESSION: No acute intracranial hemorrhage or midline shift. There is mild to moderate diffuse ce rebral atrophy greatest over bilateral frontal lobes and mild chronic small vessel ischemic change re demonstrated. No significant change from prior.
--- NOTE | 2021-09-16 14:36 | P.PN ---
Subjective Progress Note Date: 09/16/21 On today's evaluation of 09/16/2021, the patient is still lethargic and encephalopathic. She was unable to communicate patient was not answering questions appropriately. Noted acute kidney injury has recovered and the patient renal function is normalized. Note that the patient also has history of multiple sclerosis, diabetes mellitus, hypertension and hyperlipidemia and frequent UTIs. The patient is not having any significant rest or difficulties at this point in time. The patient tested positive for community by PCR during this current admission. The patient however does not have any significant pneumonia. The patient had some mild four-vessel congestion that was attributed to some CHF and fluid overload. I consulted neurology on the case. The patient had a CAT scan of the brain today that showed no evidence of any acute abnormalities. There was some mild to moderate diffuse cerebral atrophy greatest over the bilateral frontal lobes and mild chronic small vessel ischemic changes. The patient had a white cell count of 17.2 with a hemoglobin 10.6 and platelet count of 259. Sodium level is at 150 with a potassium level of 3.3, chloride is 120 with a bicarb of 24. Creatinine is at 0.7. The patient remains on Decadron 6 mg IV every 24 hours. The patient also on Lovenox 40 mg subcu every 24 hours. The patient was also started on D5 water at 75 mL's an hour. Objective - Vital Signs Vital signs: Vital Signs Temp 100.9 F H 09/16/21 12:20 Pulse 88 09/16/21 11:55 Resp 20 09/16/21 14:00 BP 197/96 09/16/21 12:20 Pulse Ox 97 09/16/21 11:55 Intake & Output 09/15/21 09/16/21 09/16/21 18:59 06:59 18:59 Intake Total 1470 150 10 Output Total 855 750 Balance 615 -600 10 Intake: IV 1470 150 10 Invasive Line 5 10 Potassium Chloride 10 meq 500 In Water For Injection 1 100ml.bag @ 100 mls/hr IVPB Q1H PEDRO Rx#: [id number] Sodium Chloride 0.9% 1, 820 150 000 ml @ 75 mls/hr IV . [id number] PEDRO Rx#:[id number] cefTRIAXone 1 gm In 150 Sodium Chloride 0.9% 50 ml @ 100 mls/hr IVPB Q24HR PEDRO Rx#:[id number] Output: Urine 855 750 Other: Voiding Method Indwelling Catheter Indwelling Catheter Indwelling Catheter # Bowel Movements 2 - Exam GENERAL EXAM: Awake, altered 55-year-old female patient, on room air, appears in no acute distress. HEAD: Normocephalic. EYES: Normal reaction of pupils, equal size. NOSE: Clear with pink turbinates. THROAT: No erythema or exudates. NECK: No masses, no JVD. CHEST: No chest wall deformity. LUNGS: Equal air entry with no crackles, wheeze, rhonchi or dullness. CVS: S1 and S2 normal with no audible murmur, regular rhythm. ABDOMEN: No hepatosplenomegaly, normal bowel sounds, no guarding or rigidity. SPINE: No scoliosis or deformity SKIN: No rashes CENTRAL NERVOUS SYSTEM: No focal deficits, tone is normal in all 4 extremities. The patient remains encephalopathic. The patient is unable to communicate or hold a conversation. EXTREMITIES: Right femoral temporary dialysis catheter in place. There is no peripheral edema. No clubbing, no cyanosis. Peripheral pulses are intact. - Labs CBC & Chem 7: 09/16/21 09:43 09/16/21 09:43 Labs: Abnormal Lab Results - Last 24 Hours (Table) 09/15/21 09/15/21 09/15/21 Range/Units 18:11 19:48 20:24 WBC (3.8-10.6) k/uL RBC (3.80-5.40) m/uL Hgb (11.4-16.0) gm/dL Hct (34.0-46.0) % Neutrophils # (Manual) (1.3-7.7) k/uL Metamyelocytes # (Man) (0) k/uL Myelocytes # (Manual) (0) k/uL Sodium (137-145) mmol/L Potassium 3.4 L (3.5-5.1) mmol/L Chloride (98-107) mmol/L BUN (7-17) mg/dL Glucose (74-99) mg/dL POC Glucose (mg/dL) 179 H 151 H (75-99) mg/dL AST (14-36) U/L ALT (4-34) U/L 09/16/21 09/16/21 09/16/21 Range/Units 06:14 06:16 09:43 WBC 17.2 H (3.8-10.6) k/uL RBC 3.65 L (3.80-5.40) m/uL Hgb 10.6 L (11.4-16.0) gm/dL Hct 33.2 L (34.0-46.0) % Neutrophils # (Manual) 14.40 H (1.3-7.7) k/uL Metamyelocytes # (Man) 0.69 H (0) k/uL Myelocytes # (Manual) 0.69 H (0) k/uL Sodium (137-145) mmol/L Potassium (3.5-5.1) mmol/L Chloride (98-107) mmol/L BUN (7-17) mg/dL Glucose (74-99) mg/dL POC Glucose (mg/dL) 146 H 155 H (75-99) mg/dL AST (14-36) U/L ALT (4-34) U/L 09/16/21 09/16/21 09/16/21 Range/Units 09:43 11:31 12:00 WBC (3.8-10.6) k/uL RBC (3.80-5.40) m/uL Hgb (11.4-16.0) gm/dL Hct (34.0-46.0) % Neutrophils # (Manual) (1.3-7.7) k/uL Metamyelocytes # (Man) (0) k/uL Myelocytes # (Manual) (0) k/uL Sodium 150 H (137-145) mmol/L Potassium 3.3 L (3.5-5.1) mmol/L Chloride 120 H (98-107) mmol/L BUN 39 H (7-17) mg/dL Glucose 157 H (74-99) mg/dL POC Glucose (mg/dL) 143 H (75-99) mg/dL AST 60 H (14-36) U/L ALT 71 H (4-34) U/L Microbiology - Last 24 Hours (Table) 09/14/21 11:57 Urine Culture - Final Urine,Catheterized Assessment and Plan Plan: 1 Altered mental status secondary to suspected uremic encephalopathy. A bit more awake but still altered and restless at times, nevertheless, the patient remains encephalopathic. There may be a component of encephalopathy from Covid 19. The patient will go 4 extremities. CAT scan of the brain was repeated and it showed negative abnormalities. Neurologist on the case. 2 Acute renal failure of unclear etiology requiring urgent hemodialysis, recovered 3 Urinary tract infection, cultures pending 4 CoVID 19 infection without significant pulmonary involvement at this time, and the patient remains on Decadron 5 Anion gap metabolic acidosis, recovered 6 Elevated LFTs, trending down 7 Elevated inflammatory markers 8 History of multiple sclerosis 9 History of urinary tract infections with Macrobid in the outpatient setting 10 Hypertension 11 Hyperlipidemia 12 Diabetes mellitus 13 acute hyperchloremic hypernatremia, started on D5 water infusion Plan: Continue D5 water and monitor his sodium levels Continue ceftriaxone Decadron, Lovenox, Protonix CAT scan of the brain was noted and showed no acute abnormalities Neurology evaluation Monitor mental status Continue IV hydralazine, add IV Vasotec Haldol as needed Seroquel will be continued for now We will continue to follow
[2021-09-16] MEDS: POTASSIUM CHLORIDE 10 MEQ in WATER FOR INJECTION 1 100ML.BAG IVPB SCH ×3 (15:19→17:09)
[2021-09-16] MEDS: ENALAPRILAT 1.25 MG/ML 1 ML VIAL IVP PRN (15:50)
--- NOTE | 2021-09-16 16:27 | EEG ---
ELECTROENCEPHALOGRAM REPORT DATE OF SERVICE: 09/16/2021. CLINICAL HISTORY: This is a 55-year-old woman who has altered mental status. The video EEG is obtained to evaluate for seizure epileptiform activity. RELEVANT MEDICATION: The patient is not on any antiepileptic drugs. EEG TYPE: A routine 21 channel EEG is performed with video using the 10/20 electrode system. DESCRIPTION: Awake state is only obtained. During awake state, the background consists of diffuse 2.5-3.5 nonrhythmic delta activity that is low to moderate in voltage and sometimes intermixed with theta activity. At times, the background consists of diffuse low-to- moderate voltage nonrhythmic theta activity. There is no physiological sleep architecture seen. There is no focal slowing. Interictal and ictal is none. ACTIVATION PROCEDURES: Photic stimulation and hyperventilation are not performed. CLINICAL INTERPRETATION: This is an abnormal routine EEG. The background slowing is suggestive of moderate to severe encephalopathy as can be seen in toxic-metabolic abnormality or can be seen in diffuse structural brain abnormality. There is no focal slowing, epileptiform discharge or seizure on the EEG. Clinical correlation is recommended. MMODL / IJN: [id number] / JACKELYN
[2021-09-16 17:04] LABS: Glucose,Whole Blood 170 mg/dL (75-99)
[2021-09-16] MEDS: DEXTROSE 5% IN WATER 1,000 ML IV SCH (17:29)
[2021-09-16 19:44] LABS: Glucose,Whole Blood 158 mg/dL (75-99)
[2021-09-17] MEDS: ENALAPRILAT 1.25 MG/ML 1 ML VIAL IVP PRN ×2 (01:06→06:50)
[2021-09-17 06:09] LABS: Glucose,Whole Blood 169 mg/dL (75-99)
[2021-09-17] MEDS: INSULIN ASPART (NovoLOG) 100 UNIT/ML VIAL SQ SCH ×4 (06:47→21:32)
[2021-09-17] MEDS: DEXTROSE 5% IN WATER 1,000 ML IV SCH ×2 (08:16→18:03)
[2021-09-17] MEDS: DEXAMETHASONE SOD PHOSPHATE 10 MG/ML 1 ML VIAL IVP SCH (08:19)
[2021-09-17] MEDS: QUEtiapine 50 MG TAB PO SCH ×2 (08:19→21:32)
[2021-09-17] MEDS: PANTOPRAZOLE 40 MG/10 ML VIAL IVP SCH (08:29)
[2021-09-17] MEDS: ENOXAPARIN 40 MG/0.4 ML SYRINGE SQ SCH (08:29)
[2021-09-17] MEDS: hydrALAZINE HCL 20 MG/ML 1 ML VIAL IV PRN (08:39)
[2021-09-17 08:41] LABS: HGB 11.9 gm/dL (11.4-16.0); MCH 28.2 pg (25.0-35.0); MCHC 31.2 g/dL (31.0-37.0); MCV 90.3 fL (80.0-100.0); Mean Platelet Volume 7.5; Platelet Count 222 k/uL (150-450); RBC 4.21 m/uL (3.80-5.40); RDW 15.3 % (11.5-15.5)
[2021-09-17 08:57] LABS: African American GFR (CKD) >90 (>60 ml/min/1.73 sqM); Anion Gap 4 mmol/L; Blood Urea Nitrogen 34 mg/dL (7-17); Calcium 9.2 mg/dL (8.4-10.2); Carbon Dioxide 25 mmol/L (22-30); Chloride 120 mmol/L (98-107); Glucose 203 mg/dL (74-99); Non-African American GFR(CKD) 88 (>60 ml/min/1.73 sqM); Potassium 3.3 mmol/L (3.5-5.1); Sodium 149 mmol/L (137-145)
[2021-09-17 09:40] LABS: Band Neutrophils % 4 %; Lymphocytes # (M) 2.35 k/uL (1.0-4.8); Metamyelocytes # (M) 0.54 k/uL (0); Metamyelocytes % 3 %; Monocytes # (M) 1.45 k/uL (0-1.0); Myelocytes # (M) 0.54 k/uL (0); Myelocytes % 3 %; Neutrophils % (M) 70 %; Nucleated Red Blood Cells 1 /100 WBC (0-0); Total Cells Counted 200; WBC 18.1 k/uL (3.8-10.6)
[2021-09-17 09:41] LABS: Anisocytosis (M) Present; Poikilocytosis (M) Present
--- NOTE | 2021-09-17 09:41 | P.PN ---
Subjective Progress Note Date: 09/17/21 Patient is still confused today but improving Constitutional: No acute distress, conversant, pleasant Eyes: Anicteric sclerae, moist conjunctiva, no lid-lag PERRLA ENMT: NC/AT Oropharynx clear, no erythema, exudates Neck: Supple, FROM, no masses, or JVD No carotid bruits No thyromegaly Lungs: Clear to auscultation Clear to percussion Normal respiratory effort, no accessory muscle use Cardiovascular: Heart regular in rate and rhythm, No murmurs, gallops, or rubs No peripheral edema Abdominal: Soft Nontender, no guarding, rebound or rigidity Abdomen moving with respiration Normoactive bowel sounds No hepatomegaly, No splenomegaly No palpable mass No abdominal wall hernia noted Skin: Normal temperature, tone, texture, turgor No induration No subcutaneous nodules No rash, lesions No ulcers Extremities: No digital cyanosis No clubbing Pedal pulses intact and symmetrical Radial pulses intact and symmetrical Normal gait and station No calf tenderness Psychiatric: Less confused today Neuro: Muscles Strength 5/5 in all 4 extremities Sensation to light touch grossly present throughout Cranial nerves II-XII grossly intact No focal sensory deficits Acute toxic metabolic encephalopathy likely due to acute renal failure with uremia versus possible Covid encephalopathy -Patient's uremia has resolved and she still remains delirious. I believe we need to give patient more time for mental status to improve from uremia -Costume Director has consulted neurology. EEG and CT head have been ordered by site damage prevention technician as well -IV Haldol when necessary. Seroquel twice a day -Keep patient nothing by mouth until mental status improves -Patient transferred out of ICU on 09/15/2021 -Patient's urine culture is negative so UTI has been ruled out as cause for her encephalopathy -Leukocytosis likely due to steroids -Today patient was able to follow commands for me and is also able to tell me her name which is an improvement from yesterday. However patient is waxing and waning. Hyponatremia likely iatrogenic due to IV fluids -Discontinue normal saline. We'll start patient on D5 W at 75 mL an hour -Trend BMP Acute renal failure, with rhabdomyolysis Metabolic acidosis -Patient had hemodialysis on 09/12/2021 and 09/13/2021 -Renal function has improved. Per nephrology no more further need for dialysis and have signed off -Per prior to this patient was complaining of back pain. Multiple myeloma workup in progress COVID 19 -Decadron day 5 -Lovenox -Pulmonology on board UTI? -Urine culture is negative so discontinue IV Rocephin Hypertension uncontrolled At this time unable to give oral medications because of her delirium Patient started on IV Vasotec and IV hydralazine when necessary Holding lisinopril and hydrochlorothiazide secondary to renal failure Chronic conditions: Type 2 DM, hyperlipidemia, multiple sclerosis -Insulin sliding scale and blood glucose monitoring -Monitor blood glucose -Hgb A1c is 6.9 DVT prophylaxis -Heparin subcu CODE STATUS:Full Code Discussed with: Anticipated discharge date: Undetermined Anticipated discharge place: Likely home Overall slowly improving hopefully discharge in a day or 2 if continues to improve Objective - Vital Signs Vital signs: Vital Signs Temp 100.2 F H 09/16/21 15:40 Pulse 85 09/17/21 04:00 Resp 22 09/17/21 04:00 BP 168/97 09/17/21 04:00 Pulse Ox 95 09/17/21 01:05 Intake & Output 09/16/21 09/17/21 09/17/21 18:59 06:59 18:59 Intake Total 10 420 Output Total 500 300 Balance -490 -300 420 Intake: IV 10 Invasive Line 5 10 Oral 420 Output: Urine 500 300 Other: Voiding Method Indwelling Catheter Indwelling Catheter # Bowel Movements 2 2 - Labs CBC & Chem 7: 09/17/21 08:15 09/17/21 08:15 Labs: Abnormal Lab Results - Last 24 Hours (Table) 09/16/21 09/16/21 09/16/21 Range/Units 09:43 09:43 11:31 WBC 17.2 H (3.8-10.6) k/uL RBC 3.65 L (3.80-5.40) m/uL Hgb 10.6 L (11.4-16.0) gm/dL Hct 33.2 L (34.0-46.0) % Neutrophils # (Manual) 14.40 H (1.3-7.7) k/uL Metamyelocytes # (Man) 0.69 H (0) k/uL Myelocytes # (Manual) 0.69 H (0) k/uL Sodium 150 H (137-145) mmol/L Potassium 3.3 L (3.5-5.1) mmol/L Chloride 120 H (98-107) mmol/L BUN 39 H (7-17) mg/dL Glucose 157 H (74-99) mg/dL POC Glucose (mg/dL) 143 H (75-99) mg/dL AST (14-36) U/L ALT (4-34) U/L 09/16/21 09/16/21 09/16/21 Range/Units 12:00 16:49 19:41 WBC (3.8-10.6) k/uL RBC (3.80-5.40) m/uL Hgb (11.4-16.0) gm/dL Hct (34.0-46.0) % Neutrophils # (Manual) (1.3-7.7) k/uL Metamyelocytes # (Man) (0) k/uL Myelocytes # (Manual) (0) k/uL Sodium (137-145) mmol/L Potassium (3.5-5.1) mmol/L Chloride (98-107) mmol/L BUN (7-17) mg/dL Glucose (74-99) mg/dL POC Glucose (mg/dL) 170 H 158 H (75-99) mg/dL AST 60 H (14-36) U/L ALT 71 H (4-34) U/L 09/17/21 09/17/21 09/17/21 Range/Units 06:08 08:15 08:15 WBC 18.3 H (3.8-10.6) k/uL RBC (3.80-5.40) m/uL Hgb (11.4-16.0) gm/dL Hct (34.0-46.0) % Neutrophils # (Manual) (1.3-7.7) k/uL Metamyelocytes # (Man) (0) k/uL Myelocytes # (Manual) (0) k/uL Sodium 149 H (137-145) mmol/L Potassium 3.3 L (3.5-5.1) mmol/L Chloride 120 H (98-107) mmol/L BUN 34 H (7-17) mg/dL Glucose 203 H (74-99) mg/dL POC Glucose (mg/dL) 169 H (75-99) mg/dL AST (14-36) U/L ALT (4-34) U/L
--- NOTE | 2021-09-17 11:12 | MR ---
EXAMINATION TYPE: MR brain wo/w con DATE OF EXAM: 09/17/2021 COMPARISON: CT brain from yesterday and 5 days ago HISTORY: Altered mental status TECHNIQUE: Multiplanar, multisequence images of the brain and brainstem is performed without and with IV contras t, utilizing 9 mL intravenous Gadavist . FINDINGS: Diffusion weighted images demonstrate no evidence of a recent infarct or other diffusion ab normality. There is mild symmetric CSF prominence over the bilateral frontal lobes. No hydrocephalus . There are scattered foci of T2 hyperintensity seen throughout the white matter bilaterally. Approxi mately 8-10 scattered lesions are seen. Largest is a 12 x 8 mm lesion in the posterior right frontal lobe above the coronal radiata axial image 22. Midline structures demonstrate normal morphology. The craniocervical junction appears within normal limits. Post contrast images demonstrate no abnormal enhancement. The dural venous sinuses appear pa tent. The visualized sinuses are clear and the globes are intact. Increasing fluid signal bilateral m astoid air cells is noted. Nasal septum redemonstrated deviated to left of midline. IMPRESSION: 1. No MRI evidence for a recent infarct. 2. Redemonstration of symmetric mild bilateral frontal lobe atrophy. Mild to moderate nonspecific whi te matter changes atypical size and distribution for product of chronic medical renal disease. Other etiologies need to be considered. Demyelinating disease and atypical infection such as Lyme disease w ould be in differential.
[2021-09-17 11:16] LABS: Free Kappa Lt Chain Qnt, Serum 4.72 mg/dL (0.33-1.94); Free Lambda Lt Chain Qnt, Seru 2.45 mg/dL (0.57-2.63)
--- NOTE | 2021-09-17 11:21 | P.PN ---
Subjective Progress Note Date: 09/17/21 On today's evaluation of 09/16/2021, the patient is still lethargic and encephalopathic. She was unable to communicate patient was not answering questions appropriately. Noted acute kidney injury has recovered and the patient renal function is normalized. Note that the patient also has history of multiple sclerosis, diabetes mellitus, hypertension and hyperlipidemia and frequent UTIs. The patient is not having any significant rest or difficulties at this point in time. The patient tested positive for community by PCR during this current admission. The patient however does not have any significant pneumonia. The patient had some mild four-vessel congestion that was attributed to some CHF and fluid overload. I consulted neurology on the case. The patient had a CAT scan of the brain today that showed no evidence of any acute abnormalities. There was some mild to moderate diffuse cerebral atrophy greatest over the bilateral frontal lobes and mild chronic small vessel ischemic changes. The patient had a white cell count of 17.2 with a hemoglobin 10.6 and platelet count of 259. Sodium level is at 150 with a potassium level of 3.3, chloride is 120 with a bicarb of 24. Creatinine is at 0.7. The patient remains on Decadron 6 mg IV every 24 hours. The patient also on Lovenox 40 mg subcu every 24 hours. The patient was also started on D5 water at 75 mL's an hour. On today's evaluation of 09/17/2021, the patient is less encephalopathic and more awake. She was able to hold a brief conversation with me. She told me that she is aware that she had a COVID 19 infection and she is in the hospital as she is being treated. At times she is still getting confused. Note that she has motor weakness in all 4 extremities. Her neurologic weakness is not focal. The patient is moving all 4 extremities without limitation. No headaches. No seizure activity. No cough or sputum production. She remains on a beta oxygen. She remains on D5 water regarding hyperchloremic hypernatremia and the sodium level is at 149. Objective - Vital Signs Vital signs: Vital Signs Temp 100.2 F H 09/16/21 15:40 Pulse 85 09/17/21 04:00 Resp 22 09/17/21 04:00 BP 168/97 09/17/21 04:00 Pulse Ox 95 09/17/21 01:05 Intake & Output 09/16/21 09/17/2122 18:59 06:59 18:59 Intake Total 10 420 Output Total 500 300 Balance -490 -300 420 Intake: IV 10 Invasive Line 5 10 Oral 420 Output: Urine 500 300 Other: Voiding Method Indwelling Catheter Indwelling Catheter # Bowel Movements 2 2 - Exam GENERAL EXAM: Awake, altered 55-year-old female patient, on room air, appears in no acute distress. The patient is much more awake compared to yesterday and she is communicating. HEAD: Normocephalic. EYES: Normal reaction of pupils, equal size. NOSE: Clear with pink turbinates. THROAT: No erythema or exudates. NECK: No masses, no JVD. CHEST: No chest wall deformity. LUNGS: Equal air entry with no crackles, wheeze, rhonchi or dullness. CVS: S1 and S2 normal with no audible murmur, regular rhythm. ABDOMEN: No hepatosplenomegaly, normal bowel sounds, no guarding or rigidity. SPINE: No scoliosis or deformity SKIN: No rashes CENTRAL NERVOUS SYSTEM: No focal deficits, tone is normal in all 4 extremities. The patient remains encephalopathic. The patient is able to communicate or hold a conversation. She remains confused. She was unable to tell me the year. She was aware that she was in the hospital. EXTREMITIES: Right femoral temporary dialysis catheter in place. There is no peripheral edema. No clubbing, no cyanosis. Peripheral pulses are intact. - Labs CBC & Chem 7: 09/17/21 08:15 09/17/21 08:15 Labs: Abnormal Lab Results - Last 24 Hours (Table) 09/13/21 09/16/21 09/16/21 Range/Units 01:47 09:43 11:31 WBC (3.8-10.6) k/uL Neutrophils # (Manual) 14.40 H (1.3-7.7) k/uL Monocytes # (Manual) (0-1.0) k/uL Metamyelocytes # (Man) 0.69 H (0) k/uL Myelocytes # (Manual) 0.69 H (0) k/uL Nucleated RBCs (0-0) /100 WBC Sodium (137-145) mmol/L Potassium (3.5-5.1) mmol/L Chloride (98-107) mmol/L BUN (7-17) mg/dL Glucose (74-99) mg/dL POC Glucose (mg/dL) 143 H (75-99) mg/dL AST (14-36) U/L ALT (4-34) U/L [place] LC, Quant 4.72 H (0.33-1.94) mg/dL 09/16/21 09/16/21 09/16/21 Range/Units 12:00 16:49 19:41 WBC (3.8-10.6) k/uL Neutrophils # (Manual) (1.3-7.7) k/uL Monocytes # (Manual) (0-1.0) k/uL Metamyelocytes # (Man) (0) k/uL Myelocytes # (Manual) (0) k/uL Nucleated RBCs (0-0) /100 WBC Sodium (137-145) mmol/L Potassium (3.5-5.1) mmol/L Chloride (98-107) mmol/L BUN (7-17) mg/dL Glucose (74-99) mg/dL POC Glucose (mg/dL) 170 H 158 H (75-99) mg/dL AST 60 H (14-36) U/L ALT 71 H (4-34) U/L [place] LC, Quant (0.33-1.94) mg/dL 09/17/21 09/17/21 09/17/21 Range/Units 06:08 08:15 08:15 WBC 18.1 H (3.8-10.6) k/uL Neutrophils # (Manual) 13.30 H (1.3-7.7) k/uL Monocytes # (Manual) 1.45 H (0-1.0) k/uL Metamyelocytes # (Man) 0.54 H (0) k/uL Myelocytes # (Manual) 0.54 H (0) k/uL Nucleated RBCs 1 H (0-0) /100 WBC Sodium 149 H (137-145) mmol/L Potassium 3.3 L (3.5-5.1) mmol/L Chloride 120 H (98-107) mmol/L BUN 34 H (7-17) mg/dL Glucose 203 H (74-99) mg/dL POC Glucose (mg/dL) 169 H (75-99) mg/dL AST (14-36) U/L ALT (4-34) U/L [place] LC, Quant (0.33-1.94) mg/dL Assessment and Plan Plan: 1 Altered mental status secondary to suspected uremic encephalopathy. A bit more awake but still altered and restless at times, nevertheless, the patient remains encephalopathic. There may be a component of encephalopathy from Covid 19. The patient will go 4 extremities. CAT scan of the brain was repeated and it showed negative abnormalities. Neurologist on the case. Clinically the patient is improving slowly. There is a case of Covid 19 encephalopathy. Metabolic encephalopathy could be also contributing to her altered mentation. 2 Acute renal failure of unclear etiology requiring urgent hemodialysis, recovered 3 Urinary tract infection, cultures pending 4 CoVID 19 infection without significant pulmonary involvement at this time, and the patient remains on Decadron 5 Anion gap metabolic acidosis, recovered 6 Elevated LFTs, trending down 7 Elevated inflammatory markers 8 History of multiple sclerosis 9 History of urinary tract infections with Macrobid in the outpatient setting 10 Hypertension 11 Hyperlipidemia 12 Diabetes mellitus 13 acute hyperchloremic hypernatremia, started on D5 water infusion Plan: Continue D5 water and monitor his sodium levels, sodium level is improving. Continue D5 water. Continue ceftriaxone Decadron, Lovenox, Protonix CAT scan of the brain was noted and showed no acute abnormalities Neurology evaluation Monitor mental status Continue IV hydralazine, add IV Vasotec Haldol as needed Seroquel will be continued for now, being utilized for delirium Bedside swallow evaluation Advance diet if she is able to tolerate diet and able to swallow We will continue to follow
[2021-09-17] MEDS: lisinopriL 20 MG TAB PO SCH (11:24)
[2021-09-17 11:26] LABS: Albumin 2.78 g/dL (3.80-4.90); Gamma Globulin 0.73 g/dL (0.70-1.50)
[2021-09-17 11:48] LABS: Glucose,Whole Blood 239 mg/dL (75-99)
--- NOTE | 2021-09-17 12:02 | P.PN ---
Subjective Progress Note Date: 09/17/21 The patient is seen at bedside and per nurse, her mentation is improving today compared to yesterday. Patient states she is feeling better. She states she follow-up with a neurologist over [facility] for her multiple sclerosis. Objective - Vital Signs Vital signs: Vital Signs Temp 100.2 F H 09/16/21 15:40 Pulse 85 09/17/21 04:00 Resp 22 09/17/21 04:00 BP 168/97 09/17/21 04:00 Pulse Ox 95 09/17/21 01:05 Intake & Output 09/16/21 09/17/21 09/17/21 18:59 06:59 18:59 Intake Total 10 420 Output Total 500 300 Balance -490 -300 420 Intake: IV 10 Invasive Line 5 10 Oral 420 Output: Urine 500 300 Other: Voiding Method Indwelling Catheter Indwelling Catheter # Bowel Movements 2 2 - Exam GENERAL: The patient is lying in bed and is not in acute distress. NEUROLOGICAL: Higher mental function: The patient is awake, alert, oriented to self and place. She states the year is 2011 and the year is August. Patient is following commands. No aphasia and no neglect. Cranial nerves: The pupils are round, equal and reactive to light. Visual mosquera are full to confrontation throughout. Extraocular movement is intact no nystagmus is noted. Facial sensation is normal to touch throughout. The facial strength is normal throughout. Tongue is midline and moved [id number] without any difficulty. No dysarthria is noted. Motor: The strength is moving all extremities above gravity and no focality noted. Normal tone and bulk. WORK-UP: Creatinine on presentation is 10.69 and most recent one is up 0.76. Calcium most recent is 9.5. Phosphorus is 7.2 and minimal the last one on 09/14/2021 is 3.1. AST is 279 and the most recent one on 09/13/2021 is 223-->60 ALT is 144 on initial presentation and on 09/13/2021 is 125 -->71 Ammonia level is less than 9. CK level is 4846 Sánchez virus PCR on 09/12/2021 is detected. Hepatitis be antigen and antibody was nonreactive. Urine culture is no growth and that was on 09/14/2021. CT of the head on 09/12/2021 is reported as no acute process. I personally reviewed it and I agree with the report. Repeat CT of the head on the 09/16/2021 is reported as no acute intracranial hemorrhage or midline shift. There is mild to moderate diffuse cerebral atrophy greatest over bilateral frontal lobe and mild chronic small vessel ischemic ch anges we demonstrate. No significant change from prior. MRI of the brain with and without is reported as no MRI evidence for a recent infarct. 3 demonstrated of symmetrical mild bilateral frontal lobe atrophy. Mild to moderate nonspecific white matter changes atypical size and distribution for product of chronic medical renal disease. Other etiologies need to be considered. The monitoring disease and atypical infection such as Lyme disease will be in differential. Routine EEG on 09/16/2021 is abnormal. The back was slowing suggestive of moderate to severe encephalopathy as can be seen in toxic metabolic abnormal can be seen in the diffuse structural brain abnormality. There is no focal slowing, epileptiform discharges or seizure on the EEG - Labs CBC & Chem 7: 09/17/21 08:15 09/17/21 08:15 Labs: Abnormal Lab Results - Last 24 Hours (Table) 09/13/21 09/16/21 09/16/21 Range/Units 01:47 09:43 12:00 WBC (3.8-10.6) k/uL Neutrophils # (Manual) 14.40 H (1.3-7.7) k/uL Monocytes # (Manual) (0-1.0) k/uL Metamyelocytes # (Man) 0.69 H (0) k/uL Myelocytes # (Manual) 0.69 H (0) k/uL Nucleated RBCs (0-0) /100 WBC Sodium (137-145) mmol/L Potassium (3.5-5.1) mmol/L Chloride (98-107) mmol/L BUN (7-17) mg/dL Glucose (74-99) mg/dL POC Glucose (mg/dL) (75-99) mg/dL AST 60 H (14-36) U/L ALT 71 H (4-34) U/L Albumin (PEP) 2.78 L (3.80-4.90) g/dL Ponsb-6-Vijbcqzzr 0.62 H (0.10-0.40) g/dL Beta Globulins 0.52 L (0.60-1.30) g/dL Free [place] LC, Quant 4.72 H (0.33-1.94) mg/dL 09/16/21 09/16/21 09/17/21 Range/Units 16:49 19:41 06:08 WBC (3.8-10.6) k/uL Neutrophils # (Manual) (1.3-7.7) k/uL Monocytes # (Manual) (0-1.0) k/uL Metamyelocytes # (Man) (0) k/uL Myelocytes # (Manual) (0) k/uL Nucleated RBCs (0-0) /100 WBC Sodium (137-145) mmol/L Potassium (3.5-5.1) mmol/L Chloride (98-107) mmol/L BUN (7-17) mg/dL Glucose (74-99) mg/dL POC Glucose (mg/dL) 170 H 158 H 169 H (75-99) mg/dL AST (14-36) U/L ALT (4-34) U/L Albumin (PEP) (3.80-4.90) g/dL Xuqtd-9-Ifrcebhky (0.10-0.40) g/dL Beta Globulins (0.60-1.30) g/dL Free [place] LC, Quant (0.33-1.94) mg/dL 09/17/21 09/17/21 09/17/21 Range/Units 08:15 08:15 11:44 WBC 18.1 H (3.8-10.6) k/uL Neutrophils # (Manual) 13.30 H (1.3-7.7) k/uL Monocytes # (Manual) 1.45 H (0-1.0) k/uL Metamyelocytes # (Man) 0.54 H (0) k/uL Myelocytes # (Manual) 0.54 H (0) k/uL Nucleated RBCs 1 H (0-0) /100 WBC Sodium 149 H (137-145) mmol/L Potassium 3.3 L (3.5-5.1) mmol/L Chloride 120 H (98-107) mmol/L BUN 34 H (7-17) mg/dL Glucose 203 H (74-99) mg/dL POC Glucose (mg/dL) 239 H (75-99) mg/dL AST (14-36) U/L ALT (4-34) U/L Albumin (PEP) (3.80-4.90) g/dL Fyjtl-2-Iaudyotfj (0.10-0.40) g/dL Beta Globulins (0.60-1.30) g/dL Free [place] LC, Quant (0.33-1.94) mg/dL Assessment and Plan Assessment: Altered mental status seems due to uremic encephalopathy and metabolic encephalopathy. Also component of encephalopathy from COVID-19.--mentation improving Acute renal failure with rhabdomyolysis on hemodialysis--resolved Elevated liver function test Acute COVID-19 infection hypernatremia--most recent is 149 Hypertension and continues to be elevated History of multiple sclerosis Diabetes mellitus and most recent hemoglobin A1c 6.9 Hyperlipidemia History of urinary tract infection Plan: * MRI of the brain with and without is reported as no MRI evidence for a recent infarct. Redemonstrated of symmetrical mild bilateral frontal lobe atrophy. Mild to moderate nonspecific white matter changes atypical size and distribut ion for product of chronic medical renal disease. Other etiologies need to be considered. The monitoring disease and atypical infection such as Lyme disease will be in differential. * Routine EEG on 09/16/2021 is abnormal. The back was slowing suggestive of moderate to severe encephalopathy as can be seen in toxic metabolic abnormal can be seen in the diffuse structural brain abnormality. There is no focal slowing, epileptiform discharges or seizure on the EEG * Every 4 hours neuro checks * No need for Lumbar puncture since patient mentation improving. * Please avoid sedations, opiates or any medications that will affect patient mentation. * Pulmonary team is on board * Nephrology team is on board * We'll defer the lateral electrolyte imbalance management to the nephrology team * We'll defer the rest of medical management to primary team. * Upon discharge, the patient needs to follow-up with her neurologist (within 2- 3 weeks). The plan is discussed with the patient's nurse. There is no further neurological work-up. Will follow-up sporadically. Lakhwinder Weems M.D. Neuro-Hospitalist Time with Patient: Less than 30
[2021-09-17 16:38] LABS: Glucose,Whole Blood 154 mg/dL (75-99)
[2021-09-17 20:04] LABS: Glucose,Whole Blood 165 mg/dL (75-99)
[2021-09-18 02:19] LABS: Glucose,Whole Blood 187 mg/dL (75-99)
[2021-09-18 06:14] LABS: Glucose,Whole Blood 173 mg/dL (75-99)
[2021-09-18] MEDS: MORPHINE SULFATE 2 MG/ML SYRINGE IVP PRN ×3 (06:40→23:52)
[2021-09-18] MEDS: INSULIN ASPART (NovoLOG) 100 UNIT/ML VIAL SQ SCH ×4 (06:40→20:29)
[2021-09-18 08:36] LABS: ALT 46 U/L (4-34); AST 46 U/L (14-36); African American GFR (CKD) >90 (>60 ml/min/1.73 sqM); Albumin 2.7 g/dL (3.5-5.0); Alkaline Phosphatase 65 U/L (38-126); Anion Gap 8 mmol/L; Blood Urea Nitrogen 21 mg/dL (7-17); Calcium 8.4 mg/dL (8.4-10.2); Carbon Dioxide 22 mmol/L (22-30); Chloride 108 mmol/L (98-107); Glucose 157 mg/dL (74-99); Non-African American GFR(CKD) >90 (>60 ml/min/1.73 sqM); Potassium 2.9 mmol/L (3.5-5.1); Sodium 138 mmol/L (137-145); Total Bilirubin 0.5 mg/dL (0.2-1.3); Total Protein 5.2 g/dL (6.3-8.2)
[2021-09-18 08:48] LABS: HCT 37.7 % (34.0-46.0); HGB 12.4 gm/dL (11.4-16.0); MCH 29.9 pg (25.0-35.0); MCHC 32.8 g/dL (31.0-37.0); MCV 90.9 fL (80.0-100.0); Mean Platelet Volume 7.4; Platelet Count 180 k/uL (150-450); RBC 4.14 m/uL (3.80-5.40); RDW 15.3 % (11.5-15.5); WBC 18.3 k/uL (3.8-10.6)
[2021-09-18] MEDS: ENOXAPARIN 40 MG/0.4 ML SYRINGE SQ SCH (08:51)
[2021-09-18] MEDS: DEXAMETHASONE SOD PHOSPHATE 10 MG/ML 1 ML VIAL IVP SCH (08:52)
[2021-09-18] MEDS: lisinopriL 20 MG TAB PO SCH (08:52)
[2021-09-18] MEDS: PANTOPRAZOLE 40 MG/10 ML VIAL IVP SCH (08:53)
[2021-09-18] MEDS: QUEtiapine 50 MG TAB PO SCH ×2 (08:53→20:29)
[2021-09-18] MEDS: DEXTROSE 5% IN WATER 1,000 ML IV SCH ×2 (09:41→18:01)
[2021-09-18] MEDS: POTASSIUM CHLORIDE ER 20 MEQ TAB.ER PO SCH ×3 (10:23→12:26)
[2021-09-18 11:28] LABS: Glucose,Whole Blood 159 mg/dL (75-99)
--- NOTE | 2021-09-18 11:35 | P.PN ---
Subjective Progress Note Date: 09/18/21 Overall mentation is improving patient is alert oriented 3 today Constitutional: No acute distress, conversant, pleasant Eyes: Anicteric sclerae, moist conjunctiva, no lid-lag PERRLA ENMT: NC/AT Oropharynx clear, no erythema, exudates Neck: Supple, FROM, no masses, or JVD No carotid bruits No thyromegaly Lungs: Clear to auscultation Clear to percussion Normal respiratory effort, no accessory muscle use Cardiovascular: Heart regular in rate and rhythm, No murmurs, gallops, or rubs No peripheral edema Abdominal: Soft Nontender, no guarding, rebound or rigidity Abdomen moving with respiration Normoactive bowel sounds No hepatomegaly, No splenomegaly No palpable mass No abdominal wall hernia noted Skin: Normal temperature, tone, texture, turgor No induration No subcutaneous nodules No rash, lesions No ulcers Extremities: No digital cyanosis No clubbing Pedal pulses intact and symmetrical Radial pulses intact and symmetrical Normal gait and station No calf tenderness Psychiatric: Sleepy Neuro: Muscles Strength 5/5 in all 4 extremities Sensation to light touch grossly present throughout Cranial nerves II-XII grossly intact No focal sensory deficits #Toxic encephalopathy #Loss of consciousness #Sepsis #UTI ruled out #Streptococcus bacteremia -Patient's EEG was unremarkable. Patient cleared by neurology. -Urine culture was negative so UTI ruled out. -Unclear source of the bacteremia. Suspect due to endocarditis since patient has a history of endocarditis and also patient has significant mitral regurgitation -Resume IV Rocephin -[facility] ordered -> scheduled for tomorrow -Due to episode of loss of consciousness patient cannot drive for 6 months. I counseled patient. #Elevated troponin likley Type II due to above -I doubt ACS since patient does not have any chest pain and EKG negative for any ST changes -Echocardiogram shows EF of 55-60%. Mitral valve is thickened with myxomatous degeneration and there is severe mitral regurgitation present. -Cardiology on board. -Patient cleared for discharge by cardiology -Patient plans to follow-up with his financial aids officer at [place] #Severe mitral regurgitation -Echo results as above -Patient is asymptomatic. -Patient instructed to follow-up with his financial aids officer at [place] #History of endocarditis -I believe patient may have recurrent endocarditis. See above Patient does have vegetation on on [facility] cardiology and ID are following Other mental status dose likely multifactorial improving we'll continue to monitor hopefully discharge in a day or 2 if continues to improve Objective - Vital Signs Vital signs: Vital Signs Temp 97.9 F 09/18/21 08:00 Pulse 86 09/18/21 08:00 Resp 17 09/18/21 08:00 BP 169/103 09/18/21 08:00 Pulse Ox 98 09/18/21 08:00 Intake & Output 09/17/21 09/18/21 09/18/21 18:59 06:59 18:59 Intake Total 1020 540 Output Total 750 800 750 Balance 270 -800 -210 Intake: Oral 1020 540 Output: Urine 750 800 750 Other: Voiding Method Indwelling Catheter Indwelling Catheter Indwelling Catheter # Voids 1 2 # Bowel Movements 2 2 - Labs CBC & Chem 7: 09/18/21 07:40 09/18/21 07:40 Labs: Abnormal Lab Results - Last 24 Hours (Table) 09/17/21 09/17/21 09/17/21 Range/Units 11:44 16:36 20:02 WBC (3.8-10.6) k/uL Potassium (3.5-5.1) mmol/L Chloride (98-107) mmol/L BUN (7-17) mg/dL Glucose (74-99) mg/dL POC Glucose (mg/dL) 239 H 154 H 165 H (75-99) mg/dL AST (14-36) U/L ALT (4-34) U/L Total Protein (6.3-8.2) g/dL Albumin (3.5-5.0) g/dL 09/18/21 09/18/21 09/18/21 Range/Units 02:17 06:12 07:40 WBC 18.3 H (3.8-10.6) k/uL Potassium (3.5-5.1) mmol/L Chloride (98-107) mmol/L BUN (7-17) mg/dL Glucose (74-99) mg/dL POC Glucose (mg/dL) 187 H 173 H (75-99) mg/dL AST (14-36) U/L ALT (4-34) U/L Total Protein (6.3-8.2) g/dL Albumin (3.5-5.0) g/dL 09/18/21 09/18/21 Range/Units 07:40 11:23 WBC (3.8-10.6) k/uL Potassium 2.9 L (3.5-5.1) mmol/L Chloride 108 H (98-107) mmol/L BUN 21 H (7-17) mg/dL Glucose 157 H (74-99) mg/dL POC Glucose (mg/dL) 159 H (75-99) mg/dL AST 46 H (14-36) U/L ALT 46 H (4-34) U/L Total Protein 5.2 L (6.3-8.2) g/dL Albumin 2.7 L (3.5-5.0) g/dL
[2021-09-18 12:57] LABS: Band Neutrophils % 3 %; Lymphocytes # (M) 2.01 k/uL (1.0-4.8); Metamyelocytes # (M) 0.37 k/uL (0); Metamyelocytes % 2 %; Monocytes # (M) 0.37 k/uL (0-1.0); Myelocytes # (M) 0.18 k/uL (0); Myelocytes % 1 %; Neutrophils % (M) 82 %; Nucleated Red Blood Cells 0 /100 WBC (0-0); Total Cells Counted 200
[2021-09-18 13:00] LABS: Polychromasia Present
--- NOTE | 2021-09-18 13:50 | P.PN ---
Subjective Progress Note Date: 09/18/21 Patient less confused today is alert and oriented 3 Constitutional: No acute distress, conversant, pleasant Eyes: Anicteric sclerae, moist conjunctiva, no lid-lag PERRLA ENMT: NC/AT Oropharynx clear, no erythema, exudates Neck: Supple, FROM, no masses, or JVD No carotid bruits No thyromegaly Lungs: Clear to auscultation Clear to percussion Normal respiratory effort, no accessory muscle use Cardiovascular: Heart regular in rate and rhythm, No murmurs, gallops, or rubs No peripheral edema Abdominal: Soft Nontender, no guarding, rebound or rigidity Abdomen moving with respiration Normoactive bowel sounds No hepatomegaly, No splenomegaly No palpable mass No abdominal wall hernia noted Skin: Normal temperature, tone, texture, turgor No induration No subcutaneous nodules No rash, lesions No ulcers Extremities: No digital cyanosis No clubbing Pedal pulses intact and symmetrical Radial pulses intact and symmetrical Normal gait and station No calf tenderness Psychiatric: Less confused today Neuro: Muscles Strength 5/5 in all 4 extremities Sensation to light touch grossly present throughout Cranial nerves II-XII grossly intact No focal sensory deficits Acute toxic metabolic encephalopathy likely due to acute renal failure with uremia versus possible Covid encephalopathy -Patient's uremia has resolved and she still remains delirious. I believe we need to give patient more time for mental status to improve from uremia -Licensed Weigher has consulted neurology. EEG and CT head have been ordered by oncology account specialist as well -IV Haldol when necessary. Seroquel twice a day -Keep patient nothing by mouth until mental status improves -Patient transferred out of ICU on 09/15/2021 -Patient's urine culture is negative so UTI has been ruled out as cause for her encephalopathy -Leukocytosis likely due to steroids -Today patient was able to follow commands for me and is also able to tell me her name which is an improvement from yesterday. However patient is waxing and waning. Hyponatremia likely iatrogenic due to IV fluids -Discontinue normal saline. We'll start patient on D5 W at 75 mL an hour -Trend BMP Acute renal failure, with rhabdomyolysis Metabolic acidosis -Patient had hemodialysis on 09/12/2021 and 09/13/2021 -Renal function has improved. Per nephrology no more further need for dialysis and have signed off -Per prior to this patient was complaining of back pain. Multiple myeloma workup in progress COVID 19 -Decadron day 5 -Lovenox -Pulmonology on board UTI? -Urine culture is negative so discontinue IV Rocephin Hypertension uncontrolled At this time unable to give oral medications because of her delirium Patient started on IV Vasotec and IV hydralazine when necessary Holding lisinopril and hydrochlorothiazide secondary to renal failure Chronic conditions: Type 2 DM, hyperlipidemia, multiple sclerosis -Insulin sliding scale and blood glucose monitoring -Monitor blood glucose -Hgb A1c is 6.9 DVT prophylaxis -Heparin subcu CODE STATUS:Full Code Discussed with: Anticipated discharge date: Undetermined Anticipated discharge place: Likely home Overall the condition of the patient is improving patient appears to be alert oriented 3 today but still very weak all for discharge in a day or 2 exact etiology of the confusion is not clear at this time likely to be multifactorial Objective - Vital Signs Vital signs: Vital Signs Temp 97.6 F 09/18/21 11:54 Pulse 85 09/18/21 11:54 Resp 17 09/18/21 11:54 BP 160/98 09/18/21 11:54 Pulse Ox 98 09/18/21 11:54 Intake & Output 09/17/21 09/18/21 09/18/21 18:59 06:59 18:59 Intake Total 1020 540 Output Total 750 800 750 Balance 270 -800 -210 Intake: Oral 1020 540 Output: Urine 750 800 750 Other: Voiding Method Indwelling Catheter Indwelling Catheter Indwelling Catheter # Voids 1 2 # Bowel Movements 2 2 - Labs CBC & Chem 7: 09/18/21 07:40 09/18/21 07:40 Labs: Abnormal Lab Results - Last 24 Hours (Table) 09/17/21 09/17/21 09/18/21 Range/Units 16:36 20:02 02:17 WBC (3.8-10.6) k/uL Neutrophils # (Manual) (1.3-7.7) k/uL Metamyelocytes # (Man) (0) k/uL Myelocytes # (Manual) (0) k/uL Potassium (3.5-5.1) mmol/L Chloride (98-107) mmol/L BUN (7-17) mg/dL Glucose (74-99) mg/dL POC Glucose (mg/dL) 154 H 165 H 187 H (75-99) mg/dL AST (14-36) U/L ALT (4-34) U/L Total Protein (6.3-8.2) g/dL Albumin (3.5-5.0) g/dL 09/18/21 09/18/21 09/18/21 Range/Units 06:12 07:40 07:40 WBC 18.3 H (3.8-10.6) k/uL Neutrophils # (Manual) 15.50 H (1.3-7.7) k/uL Metamyelocytes # (Man) 0.37 H (0) k/uL Myelocytes # (Manual) 0.18 H (0) k/uL Potassium 2.9 L (3.5-5.1) mmol/L Chloride 108 H (98-107) mmol/L BUN 21 H (7-17) mg/dL Glucose 157 H (74-99) mg/dL POC Glucose (mg/dL) 173 H (75-99) mg/dL AST 46 H (14-36) U/L ALT 46 H (4-34) U/L Total Protein 5.2 L (6.3-8.2) g/dL Albumin 2.7 L (3.5-5.0) g/dL 09/18/21 Range/Units 11:23 WBC (3.8-10.6) k/uL Neutrophils # (Manual) (1.3-7.7) k/uL Metamyelocytes # (Man) (0) k/uL Myelocytes # (Manual) (0) k/uL Potassium (3.5-5.1) mmol/L Chloride (98-107) mmol/L BUN (7-17) mg/dL Glucose (74-99) mg/dL POC Glucose (mg/dL) 159 H (75-99) mg/dL AST (14-36) U/L ALT (4-34) U/L Total Protein (6.3-8.2) g/dL Albumin (3.5-5.0) g/dL
--- NOTE | 2021-09-18 14:00 | P.PN ---
Subjective Progress Note Date: 09/18/21 The patient is seen at bedside and per the nurse her mentation is improving and doing neurologically better. Objective - Vital Signs Vital signs: Vital Signs Temp 97.6 F 09/18/21 11:54 Pulse 85 09/18/21 11:54 Resp 17 09/18/21 11:54 BP 160/98 09/18/21 11:54 Pulse Ox 98 09/18/21 11:54 Intake & Output 09/17/21 09/18/21 09/18/21 18:59 06:59 18:59 Intake Total 1020 540 Output Total 750 800 750 Balance 270 -800 -210 Intake: Oral 1020 540 Output: Urine 750 800 750 Other: Voiding Method Indwelling Catheter Indwelling Catheter Indwelling Catheter # Voids 1 2 # Bowel Movements 2 2 - Exam GENERAL: The patient is lying in bed and is not in acute distress. NEUROLOGICAL: Higher mental function: The patient is awake, alert, oriented to self place and time. Patient is following commands. No aphasia and no neglect. Cranial nerves: The pupils are round, equal and reactive to light. Visual mosquera are full to confrontation throughout. Extraocular movement is intact no nystagmus is noted. Facial sensation is normal to touch throughout. The facial strength is normal throughout. Tongue is midline and moved [id number] without any difficulty. No dysarthria is noted. Motor: The strength is moving all extremities above gravity and no focality noted. Normal tone and bulk. WORK-UP: Creatinine on presentation is 10.69 and most recent one is up 0.76. Calcium most recent is 9.5. Phosphorus is 7.2 and minimal the last one on 09/14/2021 is 3.1. AST is 279 and the most recent one on 09/13/2021 is 223-->60 ALT is 144 on initial presentation and on 09/13/2021 is 125 -->71 Ammonia level is less than 9. CK level is 4846 HbA1c: 6.9. Serum immunofixation: No monoclonal paraprotein recognized. Sánchez virus PCR on 09/12/2021 is detected. Hepatitis be antigen and antibody was nonreactive. Urine culture is no growth and that was on 09/14/2021. CT of the head on 09/12/2021 is reported as no acute process. I personally reviewed it and I agree with the report. Repeat CT of the head on the 09/16/2021 is reported as no acute intracranial hemorrhage or midline shift. There is mild to moderate diffuse cerebral atrophy greatest over bilateral frontal lobe and mild chronic small vessel ischemic changes we demonstrate. No significant change from prior. MRI of the brain with and without is reported as no MRI evidence for a recent infarct. 3 demonstrated of symmetrical mild bilateral frontal lobe atrophy. Mild to moderate nonspecific white matter changes atypical size and distribution for product of chronic medical renal disease. Other etiologies need to be considered. The monitoring disease and atypical infection such as Lyme disease will be in differential. Routine EEG on 09/16/2021 is abnormal. The back was slowing suggestive of moderate to severe encephalopathy as can be seen in toxic metabolic abnormal can be seen in the diffuse structural brain abnormality. There is no focal slowing, epileptiform discharges or seizure on the EEG - Labs CBC & Chem 7: 09/18/21 07:40 09/18/21 07:40 Labs: Abnormal Lab Results - Last 24 Hours (Table) 09/17/21 09/17/21 09/18/21 Range/Units 16:36 20:02 02:17 WBC (3.8-10.6) k/uL Neutrophils # (Manual) (1.3-7.7) k/uL Metamyelocytes # (Man) (0) k/uL Myelocytes # (Manual) (0) k/uL Potassium (3.5-5.1) mmol/L Chloride (98-107) mmol/L BUN (7-17) mg/dL Glucose (74-99) mg/dL POC Glucose (mg/dL) 154 H 165 H 187 H (75-99) mg/dL AST (14-36) U/L ALT (4-34) U/L Total Protein (6.3-8.2) g/dL Albumin (3.5-5.0) g/dL 09/18/21 09/18/21 09/18/21 Range/Units 06:12 07:40 07:40 WBC 18.3 H (3.8-10.6) k/uL Neutrophils # (Manual) 15.50 H (1.3-7.7) k/uL Metamyelocytes # (Man) 0.37 H (0) k/uL Myelocytes # (Manual) 0.18 H (0) k/uL Potassium 2.9 L (3.5-5.1) mmol/L Chloride 108 H (98-107) mmol/L BUN 21 H (7-17) mg/dL Glucose 157 H (74-99) mg/dL POC Glucose (mg/dL) 173 H (75-99) mg/dL AST 46 H (14-36) U/L ALT 46 H (4-34) U/L Total Protein 5.2 L (6.3-8.2) g/dL Albumin 2.7 L (3.5-5.0) g/dL 09/18/21 Range/Units 11:23 WBC (3.8-10.6) k/uL Neutrophils # (Manual) (1.3-7.7) k/uL Metamyelocytes # (Man) (0) k/uL Myelocytes # (Manual) (0) k/uL Potassium (3.5-5.1) mmol/L Chloride (98-107) mmol/L BUN (7-17) mg/dL Glucose (74-99) mg/dL POC Glucose (mg/dL) 159 H (75-99) mg/dL AST (14-36) U/L ALT (4-34) U/L Total Protein (6.3-8.2) g/dL Albumin (3.5-5.0) g/dL Assessment and Plan Assessment: Altered mental status seems due to uremic encephalopathy and metabolic encep halopathy. Also component of encephalopathy from COVID-19.--mentation improved Acute renal failure with rhabdomyolysis on hemodialysis--resolved Elevated liver function test Acute COVID-19 infection hypernatremia--most recent is 149 Hypertension and continues to be elevated History of multiple sclerosis Diabetes mellitus and most recent hemoglobin A1c 6.9 Hyperlipidemia History of urinary tract infection Plan: * MRI of the brain with and without is reported as no MRI evidence for a recent infarct. Redemonstrated of symmetrical mild bilateral frontal lobe atrophy. Mild to moderate nonspecific white matter changes atypical size and distribution for product of chronic medical renal disease. Other etiologies need to be considered. The monitoring disease and atypical infection such as Lyme disease will be in differential. * Routine EEG on 09/16/2021 is abnormal. The back was slowing suggestive of moderate to severe encephalopathy as can be seen in toxic metabolic abnormal can be seen in the diffuse structural brain abnormality. There is no focal slowing, epileptiform discharges or seizure on the EEG * Every 4 hours neuro checks * No need for Lumbar puncture since patient mentation improved. * Please avoid sedations, opiates or any medications that will affect patient mentation. * Pulmonary team is on board * Nephrology team is on board * We'll defer the rest of medical management to primary team. * Upon discharge, the patient needs to follow-up with her neurologist (within 2- 3 weeks). The plan is discussed with the patient's nurse. There is no further neurological work-up. Neurology will sign off. Please notify neurology if any further concerns. Lakhwinder Weems M.D. Neuro-Hospitalist Time with Patient: Less than 30
[2021-09-18 14:14] VITALS: BMI 37.1
--- NOTE | 2021-09-18 14:50 | P.PN ---
Subjective Progress Note Date: 09/18/21 On today's evaluation of 09/16/2021, the patient is still lethargic and encephalopathic. She was unable to communicate patient was not answering questions appropriately. Noted acute kidney injury has recovered and the patient renal function is normalized. Note that the patient also has history of multiple sclerosis, diabetes mellitus, hypertension and hyperlipidemia and frequent UTIs. The patient is not having any significant rest or difficulties at this point in time. The patient tested positive for community by PCR during this current admission. The patient however does not have any significant pneumonia. The patient had some mild four-vessel congestion that was attributed to some CHF and fluid overload. I consulted neurology on the case. The patient had a CAT scan of the brain today that showed no evidence of any acute abnormalities. There was some mild to moderate diffuse cerebral atrophy greatest over the bilateral frontal lobes and mild chronic small vessel ischemic changes. The patient had a white cell count of 17.2 with a hemoglobin 10.6 and platelet count of 259. Sodium level is at 150 with a potassium level of 3.3, chloride is 120 with a bicarb of 24. Creatinine is at 0.7. The patient remains on Decadron 6 mg IV every 24 hours. The patient also on Lovenox 40 mg subcu every 24 hours. The patient was also started on D5 water at 75 mL's an hour. On today's evaluation of 09/17/2021, the patient is less encephalopathic and more awake. She was able to hold a brief conversation with me. She told me that she is aware that she had a COVID 19 infection and she is in the hospital as she is being treated. At times she is still getting confused. Note that she has motor weakness in all 4 extremities. Her neurologic weakness is not focal. The patient is moving all 4 extremities without limitation. No headaches. No seizure activity. No cough or sputum production. She remains on a beta oxygen. She remains on D5 water regarding hyperchloremic hypernatremia and the sodium level is at 149. 09/18/2021, the patient shows marked improvement in her neurologic's status and the patient is aware of time, location and the people around her. As such, she is alert and oriented 3. No focal neurological deficits patient will go for extremity is no agitation. She is regaining his strength and the patient is doing some limited amount of ambulation. No respiratory distress pain no cough or sputum production. On today's blood work, the white cell count is at 80.3 with a hemoglobin of 12.4. Platelet counts of 180. BN is a 21 with a creatinine of 0.6 and the sodium level is at 138. Potassium level is at 2.9 and needs to be replaced. Nevertheless, the patient has no specific complaints. Her neurologic recovery significant. She remains on Seroquel 50 mg by mouth twice a day. She is also on Lovenox 40 mg subcu for DVT prophylaxis. IV fluids in the form of D5 water at the rate of 75 mL an hour. Tolerating her diet. Objective - Vital Signs Vital signs: Vital Signs Temp 97.6 F 09/18/21 11:54 Pulse 85 09/18/21 11:54 Resp 17 09/18/21 11:54 BP 160/98 09/18/21 11:54 Pulse Ox 98 09/18/21 11:54 Intake & Output 09/17/21 09/18/21 09/18/21 18:59 06:59 18:59 Intake Total 1020 540 Output Total 750 800 750 Balance 270 -800 -210 Weight 95.2 kg Intake: Oral 1020 540 Output: Urine 750 800 750 Other: Voiding Method Indwelling Catheter Indwelling Catheter Indwelling Catheter # Voids 1 2 # Bowel Movements 2 2 - Exam GENERAL EXAM: Awake, altered 55-year-old female patient, on room air, appears in no acute distress. Alert and awake 3 HEAD: Normocephalic. EYES: Normal reaction of pupils, equal size. NOSE: Clear with pink turbinates. THROAT: No erythema or exudates. NECK: No masses, no JVD. CHEST: No chest wall deformity. LUNGS: Equal air entry with no crackles, wheeze, rhonchi or dullness. CVS: S1 and S2 normal with no audible murmur, regular rhythm. ABDOMEN: No hepatosplenomegaly, normal bowel sounds, no guarding or rigidity. SPINE: No scoliosis or deformity SKIN: No rashes CENTRAL NERVOUS SYSTEM: Neurologically, the patient is awake and alert and the patient does not have any focal neurological deficit. Cranial nerves are essentially intact. Examination of the extremities revealed easily palpable radial, femoral and pedal pulses. There was no cyanosis, clubbing or edema. - Labs CBC & Chem 7: 09/18/21 07:40 09/18/21 07:40 Labs: Abnormal Lab Results - Last 24 Hours (Table) 09/17/21 09/17/21 09/18/21 Range/Units 16:36 20:02 02:17 WBC (3.8-10.6) k/uL Neutrophils # (Manual) (1.3-7.7) k/uL Metamyelocytes # (Man) (0) k/uL Myelocytes # (Manual) (0) k/uL Potassium (3.5-5.1) mmol/L Chloride (98-107) mmol/L BUN (7-17) mg/dL Glucose (74-99) mg/dL POC Glucose (mg/dL) 154 H 165 H 187 H (75-99) mg/dL AST (14-36) U/L ALT (4-34) U/L Total Protein (6.3-8.2) g/dL Albumin (3.5-5.0) g/dL 09/18/21 09/18/21 09/18/21 Range/Units 06:12 07:40 07:40 WBC 18.3 H (3.8-10.6) k/uL Neutrophils # (Manual) 15.50 H (1.3-7.7) k/uL Metamyelocytes # (Man) 0.37 H (0) k/uL Myelocytes # (Manual) 0.18 H (0) k/uL Potassium 2.9 L (3.5-5.1) mmol/L Chloride 108 H (98-107) mmol/L BUN 21 H (7-17) mg/dL Glucose 157 H (74-99) mg/dL POC Glucose (mg/dL) 173 H (75-99) mg/dL AST 46 H (14-36) U/L ALT 46 H (4-34) U/L Total Protein 5.2 L (6.3-8.2) g/dL Albumin 2.7 L (3.5-5.0) g/dL 09/18/21 Range/Units 11:23 WBC (3.8-10.6) k/uL Neutrophils # (Manual) (1.3-7.7) k/uL Metamyelocytes # (Man) (0) k/uL Myelocytes # (Manual) (0) k/uL Potassium (3.5-5.1) mmol/L Chloride (98-107) mmol/L BUN (7-17) mg/dL Glucose (74-99) mg/dL POC Glucose (mg/dL) 159 H (75-99) mg/dL AST (14-36) U/L ALT (4-34) U/L Total Protein (6.3-8.2) g/dL Albumin (3.5-5.0) g/dL Assessment and Plan Plan: 1 Altered mental status secondary to suspected uremic encephalopathy/Covid 19 encephalopathy recovered and the patient is fully normalized at this point in time and the patient is communicating and she is alert and oriented 3. . 2 Acute renal failure of unclear etiology requiring urgent hemodialysis, recovered 3 Urinary tract infection, cultures pending 4 CoVID 19 infection without significant pulmonary involvement at this time, 5 Anion gap metabolic acidosis, recovered 6 Elevated LFTs, trending down 7 Elevated inflammatory markers 8 History of multiple sclerosis 9 History of urinary tract infections with Macrobid in the outpatient setting 10 Hypertension 11 Hyperlipidemia 12 Diabetes mellitus 13 acute hyperchloremic hypernatremia, started on D5 water infusion Plan: Advance oral intake and change his IV fluids to [facility] Neurology follow-up. MRI of the brain showed no evidence of any stroke. The patient had some mild bilateral frontal lobe atrophy. There was mention that the patient does not also need any lumbar puncture. The patient is currently on room air oxygen. Pulmonary critical care services we'll sign off the case.
[2021-09-18 16:37] LABS: Glucose,Whole Blood 151 mg/dL (75-99)
[2021-09-18 20:14] LABS: Glucose,Whole Blood 179 mg/dL (75-99)
[2021-09-19 06:11] LABS: Glucose,Whole Blood 113 mg/dL (75-99)
[2021-09-19] MEDS: INSULIN ASPART (NovoLOG) 100 UNIT/ML VIAL SQ SCH ×2 (06:14→12:47)
[2021-09-19] MEDS: DEXTROSE 5% IN WATER 1,000 ML IV SCH (06:15)
[2021-09-19] MEDS ORDERED: PANTOPRAZOLE 40 MG TABLET PO SCH (07:30)
[2021-09-19] MEDS: lisinopriL 20 MG TAB PO SCH (08:50)
[2021-09-19] MEDS: ENOXAPARIN 40 MG/0.4 ML SYRINGE SQ SCH (08:50)
[2021-09-19] MEDS: QUEtiapine 50 MG TAB PO SCH (08:50)
[2021-09-19] MEDS: DEXAMETHASONE SOD PHOSPHATE 10 MG/ML 1 ML VIAL IVP SCH (08:50)
[2021-09-19 09:23] LABS: ALT 108 U/L (4-34); AST 174 U/L (14-36); African American GFR (CKD) >90 (>60 ml/min/1.73 sqM); Albumin 2.8 g/dL (3.5-5.0); Alkaline Phosphatase 76 U/L (38-126); Anion Gap 6 mmol/L; Blood Urea Nitrogen 14 mg/dL (7-17); Calcium 8.5 mg/dL (8.4-10.2); Carbon Dioxide 20 mmol/L (22-30); Chloride 111 mmol/L (98-107); Glucose 155 mg/dL (74-99); Non-African American GFR(CKD) >90 (>60 ml/min/1.73 sqM); Potassium 3.1 mmol/L (3.5-5.1); Sodium 137 mmol/L (137-145); Total Bilirubin 0.7 mg/dL (0.2-1.3); Total Protein 5.6 g/dL (6.3-8.2)
--- NOTE | 2021-09-19 10:33 | P.DS ---
Providers Date of admission: 09/12/21 20:37 Expected date of discharge: 09/19/21 Attending physician: Rad Strong MD Consults: 09/12/21 19:50 Consult Physician Stat Consulting Provider: Marvin Duong Consult Reason/Comments: vascular access Do you want consulting provider notified?: Already Contacted 09/12/21 20:37 Consult Physician Stat Consulting Provider: Rocky Weems Consult Reason/Comments: ICU Do you want consulting provider notified?: Already Contacted Consult Physician Stat Consulting Provider: Ebony Horan Consult Reason/Comments: emergent dialysis Do you want consulting provider notified?: Already Contacted 09/16/21 10:33 Consult Physician Routine Consulting Provider: Freedom Angel Consult Reason/Comments: altered mental status Do you want consulting provider notified?: Yes Primary care physician: Teodoro Prior Hospital Course: 55-year-old female admitted to the hospital with altered mental status COVID-19 infection acute renal failure patient overall improved has been evaluated by pulmonology and neurology Patient is around baseline at this time is alert and oriented 3 wants to go home Exact etiology of the altered mental status was not very clear what was thought to be multifactorial due to COVID-19 infection and acute renal failure Also polypharmacy cannot be ruled out Constitutional: No acute distress, conversant, pleasant Eyes: Anicteric sclerae, moist conjunctiva, no lid-lag PERRLA ENMT: NC/AT Oropharynx clear, no erythema, exudates Neck: Supple, FROM, no masses, or JVD No carotid bruits No thyromegaly Lungs: Clear to auscultation Clear to percussion Normal respiratory effort, no accessory muscle use Cardiovascular: Heart regular in rate and rhythm, No murmurs, gallops, or rubs No peripheral edema Abdominal: Soft Nontender, no guarding, rebound or rigidity Abdomen moving with respiration Normoactive bowel sounds No hepatomegaly, No splenomegaly No palpable mass No abdominal wall hernia noted Skin: Normal temperature, tone, texture, turgor No induration No subcutaneous nodules No rash, lesions No ulcers Extremities: No digital cyanosis No clubbing Pedal pulses intact and symmetrical Radial pulses intact and symmetrical Normal gait and station No calf tenderness Psychiatric:Alert and oriented to person, place and time Appropriate affect Intact judgement Neuro: Muscles Strength 5/5 in all 4 extremities Sensation to light touch grossly present throughout Cranial nerves II-XII grossly intact No focal sensory deficits Discharge plan Other mental status resolved patient is at around baseline to follow-up with primary care physician VAL infection Patient Condition at Discharge: Critical Plan - Discharge Summary New Discharge Prescriptions: New Cefdinir 300 mg PO Q12HR 5 Days #10 cap Continue rOPINIRole HCL [Requip] 1 mg PO HS Simvastatin [Zocor] 20 mg PO HS Nitrofurantoin Monohyd/M-Cryst [Macrobid] 100 mg PO DAILY PRN PRN Reason: after intercourse hydroCHLOROthiazide [Hydrodiuril] 25 mg PO DAILY Meloxicam 15 mg PO DAILY PRN PRN Reason: Pain LORazepam [Ativan] 0.5 mg PO TID Dextroamphetamine/Amphetamine [Adderall] 30 mg PO DIRECTED Glatiramer Acetate [Copaxone] 40 mg SQ MOWEFR Zolpidem [Ambien] 10 mg PO HS Estrogens, Conjugated Cream [Premarin Vaginal Cream] 1 applicator VAGINAL DIRECTED PRN PRN Reason: menopause symptoms metFORMIN HCL 500 mg PO AC-BID Enalapril [Vasotec] 20 mg PO DAILY Dextroamphetamine/Amphetamine [Adderall] 10 mg PO DIRECTED DULoxetine HCL [Cymbalta] 60 mg PO BID Cyclobenzaprine [Flexeril] 10 mg PO HS PRN PRN Reason: Muscle Spasm Discharge Medication List Cyclobenzaprine [Flexeril] 10 mg PO HS PRN 09/12/21 [History] DULoxetine HCL [Cymbalta] 60 mg PO BID 09/12/21 [History] Dextroamphetamine/Amphetamine [Adderall] 10 mg PO DIRECTED 09/12/21 [History] Dextroamphetamine/Amphetamine [Adderall] 30 mg PO DIRECTED 09/12/21 [History] Enalapril [Vasotec] 20 mg PO DAILY 09/12/21 [History] Estrogens, Conjugated Cream [Premarin Vaginal Cream] 1 applicator VAGINAL DIRECTED PRN 09/12/21 [History] LORazepam [Ativan] 0.5 mg PO TID 09/12/21 [History] Meloxicam 15 mg PO DAILY PRN 09/12/21 [History] Nitrofurantoin Monohyd/M-Cryst [Macrobid] 100 mg PO DAILY PRN 09/12/21 [History] Simvastatin [Zocor] 20 mg PO HS 09/12/21 [History] Zolpidem [Ambien] 10 mg PO HS 09/12/21 [History] hydroCHLOROthiazide [Hydrodiuril] 25 mg PO DAILY 09/12/21 [History] metFORMIN HCL 500 mg PO AC-BID 09/12/21 [History] rOPINIRole HCL [Requip] 1 mg PO HS 09/12/21 [History] Glatiramer Acetate [Copaxone] 40 mg SQ MOWEFR 09/13/21 [History] Cefdinir 300 mg PO Q12HR 5 Days #10 cap 09/19/21 [Rx] Follow up Appointment(s)/Referral(s): Nonstaff,Physician [REFERRING] - 1-2 days Discharge Disposition: HOME SELF-CARE
[2021-09-19 10:37] LABS: Basophils # (A) 0.1 k/uL (0-0.2); Basophils % (A) 1 %; Eosinophils % (A) 0 %; HGB 11.9 gm/dL (11.4-16.0); Lymphocytes # (A) 0.8 k/uL (1.0-4.8); Lymphocytes % (A) 5 %; MCH 29.5 pg (25.0-35.0); MCHC 32.2 g/dL (31.0-37.0); MCV 91.7 fL (80.0-100.0); Mean Platelet Volume 8.4; Monocytes # (A) 0.3 k/uL (0-1.0); Monocytes % (A) 2 %; Neutrophils # (A) 14.6 k/uL (1.3-7.7); Neutrophils % (A) 90 %; Platelet Count 100 k/uL (150-450); RBC 4.04 m/uL (3.80-5.40); RDW 15.2 % (11.5-15.5); WBC 16.2 k/uL (3.8-10.6)
[2021-09-19 10:49] VITALS: TEMP 98.6
[2021-09-19 11:42] LABS: Glucose,Whole Blood 203 mg/dL (75-99)
[2021-09-19 12:10] VITALS: BP 134/76; PULSE 84; RESP 18
--- NOTE | 2021-09-23 08:31 | CDI ---
Documentation Clarification Form Date: 09/23/21 From: Jigna Newman Admit Date: 09/12/2021 08:37:00 PM Patient Name: Brittnee Garcia Visit Number: [id number] Discharge Date: 09/19/2021 03:33:00 PM ATTENTION: The Clinical Documentation Specialists (CDI) and [facility] Coding Staff appreciate your assistance in clarifying documentation. Please respond to the clarification below the line at the bottom and electronically sign. The CDI & [facility] Coding staff will review the response and follow-up if needed. Please note: Queries are made part of the Legal Health Record. If you have any questions, please contact the author of this message via ITS. Dr. Ebony Horan, Unspecified CKD is documented in Dr Duong's op note. Additional clarification regarding the stage of CKD is requested. History/Risk Factors: ATN, COVID, acute toxic metabolic encephalopathy Patients Historical BUN/CR/GFR : none available Current BUN: 99, 71, 45, 47, 39, 34, 21, 14 Current CR: 10.69, 5.26, 0.90, 0.70, 0.76, 0.77, 0.65, 0.66 Current GFR: 4, 9, 74, >90, >90, 88, >90, >90 Treatment: right femoral dialysis catheter inserted, hemodialysis Please clarify the stage of the CKD, if known: [ ] CKD Ruled out [ ] CKD Stage 1 (GFR > 90) [ ] CKD Stage 2 (GFR 60-89) [ ] CKD Stage 3 (GFR 30-59) [ ] CKD Stage 3a (GFR 45-59) [ ] CKD Stage 3b (GFR 30-44) [ ] CKD Stage 4 (GFR 15-29) [ ] CKD Stage 5 (GFR <15) [ ] ESRD [ ] Other, please specify [ ] Unable to determine No CKD MTDD
== END 2021-09-19 15:33 | disposition home or self-care (01) | DRG 682 ==
LOC: EC 17:29 → SUPCPDRO 17:29 → 2SICU 20:37 → 3SCARD 09-15 21:55
PROVIDERS: ADMIT Internal Medicine; ATTEND Internal Medicine
PROC: 06HY33Z Insertion of Infusion Device into Lower Vein, Percutaneous Approach (ICD-10-PCS; principal; 2021-09-12)
PROC: 5A1D70Z Performance of Urinary Filtration, Intermittent, Less than 6 Hours Per Day (ICD-10-PCS; 2021-09-12)
PROC: 3E033XZ Introduction of Vasopressor into Peripheral Vein, Percutaneous Approach (ICD-10-PCS; 2021-09-13)
DX: N17.0 Acute kidney failure with tubular necrosis (principal); U07.1 COVID-19; G92.8 Other toxic encephalopathy; J96.01 Acute respiratory failure with hypoxia; E87.0 Hyperosmolality and hypernatremia; M62.82 Rhabdomyolysis; E87.2 Acidosis; I67.89 Other cerebrovascular disease; E87.1 Hypo-osmolality and hyponatremia; C90.00 Multiple myeloma not having achieved remission; N39.0 Urinary tract infection, site not specified; E83.41 Hypermagnesemia; I95.9 Hypotension, unspecified; I11.0 Hypertensive heart disease with heart failure; I50.9 Heart failure, unspecified; G35 Multiple sclerosis; E66.01 Morbid (severe) obesity due to excess calories; G31.9 Degenerative disease of nervous system, unspecified; E11.9 Type 2 diabetes mellitus without complications; E87.6 Hypokalemia; E87.8 Other disorders of electrolyte and fluid balance, not elsewhere classified; T38.0X5A Adverse effect of glucocorticoids and synthetic analogues, initial encounter; G47.00 Insomnia, unspecified; R74.01 Elevation of levels of liver transaminase levels; Z68.37 Body mass index [BMI] 37.0-37.9, adult; E78.5 Hyperlipidemia, unspecified; M54.9 Dorsalgia, unspecified; Z79.84 Long term (current) use of oral hypoglycemic drugs; Z79.899 Other long term (current) drug therapy; Z87.440 Personal history of urinary (tract) infections; Z78.1 Physical restraint status; Z71.3 Dietary counseling and surveillance
CPT/HCPCS: 36415; 36600; 70450; 70553; 71045; 71260; 74177; 80048; 80053; 80306; 81001; 82140; 82550; 82805; 83036; 83605; 83615; 83735; 83883; 84100; 84132; 84165; 84450; 84460; 85025; 85379; 85610; 85730; 86334; 86706; 87086; 87340; 87635; 90935; 95816; 96361; 96374; 99152; 99153; 99291